=== PATIENT | female | born 1945 | race Caucasian/White ===

== ENCOUNTER 2018-10-06 20:05 | Inpatient (IN) ==
[2018-10-06] MEDS: MoRPHine SULFATE 2 MG/ML CARP IV PRN ×3 (20:24→23:10)
[2018-10-06 20:29] LABS: Basophils # (auto) 0.04 K/uL (0-0.2); Basophils % (auto) 0.5 %; Eosinophils # (auto) 0.13 K/uL (0-0.5); Eosinophils % (auto) 1.7 %; Hemoglobin 14.5 g/dL (12.0-16.0); Immature Granulocytes # (auto) 0.02 K/uL (0.00-0.02); Immature Granulocytes % (auto) 0.3 %; Lymphocytes # (auto) 2.04 K/uL (1.2-3.4); Lymphocytes % (auto) 26.4 %; Mean Corpuscular Hgb Conc 33.7 g/dL (32-36); Mean Corpuscular Volume 92.3 fL (80-100); Mean Platelet Volume 9.6 fL (7.4-10.4); Monocytes # (auto) 0.69 K/uL (0.11-0.59); Monocytes % (auto) 8.9 %; Neutrophils # (auto) 4.82 K/uL (1.4-6.5); Neutrophils % (auto) 62.2 %; Platelet Count 259 K/uL (130-400); RDW Standard Deviation 43.2 fL (36.4-46.3); Red Blood Count 4.66 M/uL (4.2-5.4); White Blood Count 7.74 K/uL (4.8-10.8)
[2018-10-06 20:41] LABS: Partial Thromboplastin Time 26.8 Seconds (21.0-31.0)
[2018-10-06 20:56] LABS: BUN Creatinine Ratio 17.3 (10-20); Calcium 8.6 mg/dl (8.5-10.1); Creatinine Clr Calc Pharmacy 54.3 ml/min; Est GFR (African American) 91.9; Est GFR (Non-African American) 79.3; Potassium 3.5 mmol/L (3.5-5.1)
--- NOTE | 2018-10-06 20:59 | XRay Report ---
XR hip LT 2-3V w pelvis CLINICAL HISTORY: 73 years-old Female presenting with trauma, pain. TECHNIQUE: Single frontal view of the pelvis and frontal and crosstable lateral views of the left hip were obtained. COMPARISON: 09/16/2015. FINDINGS: Intramedullary nail fixation through the right femoral neck and proximal metadiaphysis. Displaced les ser trochanteric fracture fragment. Nonbridging heterotopic ossification along the superior hip joint . Osteopenia. Sacral iliac joints, pubic symphysis, and hip joints congruent. Mildly displaced subcapit al left femoral neck fracture. The left femoral head remains congruent in the acetabulum. There is ap proximate 5 mm of medial displacement of the distal fracture fragment. Degenerative changes of the lo wer lumbar spine. IMPRESSION: Subcapital mildly displaced left femoral neck fracture. Electronically signed by: Santo Echavarria M.D. 10/06/2018 8:58 PM
[2018-10-06 21:43] LABS: Albumin Level 3.7 gm/dl (3.4-5.0); Bilirubin Direct 0.1 mg/dl (0-0.2); Bilirubin,Total 0.4 mg/dl (0.1-1); Total Protein 7.2 gm/dl (6.4-8.2)
--- NOTE | 2018-10-06 21:46 | XRay Report ---
XR chest 1V portable CLINICAL HISTORY: 73 years-old Female presenting with fall. TECHNIQUE: Portable upright AP view of the chest was obtained. COMPARISON: 09/19/2015. FINDINGS: Atherosclerosis of the aortic arch. Cardiac silhouette normal in size. Lungs are hyperinflated. Heter ogeneity of lung parenchyma. No focal opacity. No large effusion or pneumothorax. Osteopenia suggeste d. No displaced rib fracture is apparent. Multilevel degenerative changes of the lower thoracic spine . Upper abdomen normal. IMPRESSION: 1. Findings suggest emphysema. No focal infiltrate to suggest pneumonia. 2. No acute osseous injury. Electronically signed by: Santo Echavarria M.D. 10/06/2018 9:44 PM
[2018-10-06 21:59] LABS: Allen Test POS (Pos); HCO3 ABG 27 mmol/L (19-24); Oxygen Saturation ABG 92.9 % (90-95); PCO2 ABG 40 mmHg (35-46); PO2 ABG 63 mm/Hg (80-95); pH ABG 7.46 (7.35-7.45)
--- NOTE | 2018-10-06 22:33 | History & Physical Report ---
Date of Service October 06, 2018 Assessment & Plan (1) Fracture of left hip: (2) Fall: This is a 73-year-old female with a past medical history of multiple sclerosis, osteoporosis, hypothyroidism, mild COPD, insomnia and other medical problems listed below who presents after a mechanical fall at home this afternoon and was found to have a subcapital mildly displaced left femoral neck fracture. -S/P mechanical fall prior to arrival -Left hip/pelvis XR with subcapital mildly displaced left femoral neck fracture -Keep NPO with IV maintenance fluids overnight -Preop antibiotics, bedrest, العلي catheter per geriatric hip fracture protocol -Ortho surgery and anesthesia services consulted -No history of AK, CHF or DVT/PE. CXR with no acute abnormalities, EKG without acute ST changes -Echo performed in May 2018 with normal LV function with estimated EF of 60%, no wall motion abnormalities, grade 1 diastolic dysfunction, AV sclerosis. Revised cardiac risk index for pre-op risk score of 0.4% for major cardiac event. -Pain control (3) Multiple sclerosis: Follows with Dr. Phoenix in neurology clinic. Is not on any medications for MS -Slight motor/sensory dysfunction present in both hands (R>L) is at baseline (4) Hypothyroidism: Continue levothyroxine (5) COPD, mild: Stable. Does not require home O2. Lungs clear on exam -Continue Advair inhaler. Albuterol, Duonebs as needed (6) Insomnia: Takes two 1mg lorazepam each night at home DVT Ppx: SCDs Code status: FULL per discussion with patient PCP: Henry Dispo: Admitted to med/surg. Discharge planning ordered. Patient seen in collaboration with Dr. Colon. Please see addendum. History of Present Illness Chief Complaint: Fall Primary Care Provider: Cassy Figueroa MD This is a 73-year-old female with a past medical history of multiple sclerosis, osteoporosis, hypothyroidism, mild COPD, insomnia and other medical problems listed below who presents after a mechanical fall at home this afternoon. Patient's son was helping her out the door when the family dog knocked her legs out from under her, causing her to fall to the her left side. Denies any head trauma or loss of consciousness. Son states that he caught her before she hit the ground. Patient is endorsing left hip pain that is a 7/10. Denies any new numbness or tingling distal to fracture. Has history of MS and follows with Dr. Phoenix in clinic. Is not currently taking any medication and is able to ambulate without assistive devices. Does have chronic motor and sensory deficits in bilateral hands that are slight (R>L). Had history of a right femur fracture after a mechanical fall in 2014 with a surgical repair done by the [facility] in 2014. Denies any history of heart disease or DVT/PE. Underwent an echo in May 2018 that showed normal LV systolic function with estimated EF of 60%, no wall motion abnormality of left ventricle, grade 1 diastolic dysfunction and aortic valve sclerosis. Denies any fever, chills, lightheadedness, headache, chest pain, palpitations, shortness of breath, abdominal pain, nausea, vomiting, dysuria, diarrhea or constipation. Allergies Allergy/AdvReac Type Severity Reaction Status Date / Time No Known Allergies Allergy Unknown Verified 10/06/18 20:25 Home Medications Home Medications Medication Instructions Recorded Confirmed Type albuterol sulfate [Ventolin HFA] 2 puff INHALATION QID PRN 10/06/18 10/06/18 History fluticasone-salmeterol [Advair 1 puff INHALATION BID PRN 10/06/18 10/06/18 History Diskus] ipratropium-albuterol 3 ml INHALATION Q4 PRN 10/06/18 10/06/18 History levothyroxine 88 mcg PO DAILY 10/06/18 10/06/18 History lorazepam [Ativan] 2 mg PO HS PRN 10/06/18 10/06/18 History omega 2-xry-gtb-fish oil 1 cap PO DAILY 10/06/18 10/06/18 History polyethylene glycol 3350 [Miralax] 17 g PO BID PRN 10/06/18 10/06/18 History vitamins A,C,X-jrxm-vnruhe 1 tab PO DAILY 10/06/18 10/06/18 History [PreserVision AREDS] zoledronic bpmm-audqtxnu-dbozb 5 mg IV UD 10/06/18 10/06/18 History [Reclast] Past Med/Surg History Medical History Cervical spondylosis with myelopathy (Chronic) Attic perforation of tympanic membrane, left ear (Resolved) Hypothyroidism (Chronic) COPD, mild (Chronic) Insomnia (Chronic) Osteoporosis (Chronic) Status post closed fracture of right femur (Resolved) Multiple sclerosis (Chronic) Surgical History H/O cervical spine surgery (Resolved) History of hysterectomy (Resolved) Family History Father Heart disease Sister Breast cancer Social History Current Living Situation: Spouse Other Information That Helps Us Care for You: No Feels Safe at Home: Yes Safety Concerns: Feels Safe At This Time Smoking Status: Former smoker Hx Alcohol Use: No Hx Substance Use: No Beliefs That Will Affect Care: None Preferred Language: Syriac Communication Ability: Effective Product Safety Associate Required: No Review of Systems All systems reviewed & are unremarkable except as noted in HPI & below Physical Exam 2 Vital Signs (Past 24 Hours): Last Vital Signs Temp 36.5 C 10/06/18 19:55 Pulse 92 H 10/06/18 19:55 Resp 22 10/06/18 19:55 BP 149/88 H 10/06/18 19:55 Pulse Ox 93 10/06/18 19:55 Physical Exam: General Appearance: WD/WN, no apparent distress, resting comfortably Head: normocephalic, atraumatic Eyes: normal inspection, PERRL, EOMI ENT: hearing grossly normal, pharynx normal (moist mucous membranes) Neck: supple, no JVD, no adenopathy Respiratory/Chest: lungs clear to auscultation. No wheezes, rales or rhonci. No respiratory distress or accessory muscle use Cardiovascular: regular rate, rhythm, systolic murmur, normal peripheral pulses Abdomen/GI: normal bowel sounds, soft, non-tender to palpation Extremities/Musculoskelatal: + Left hip with tenderness to palpation, and pain with movement. Distal pulses intact. No calf tenderness, normal capillary refill, no pedal edema Neurologic/Psych: alert, normal mood/affect, oriented x 3 Skin: normal color, warm/dry Results & Data Laboratory Results Short CBC 10/06/18 Range/Units 20:20 WBC 7.74 (4.8-10.8) K/uL Hgb 14.5 (12.0-16.0) g/dL Hct 43.0 (37-47) % Plt Count 259 (130-400) K/uL BMP 10/06/18 20:20 Sodium 138 Potassium 3.5 Chloride 102 Carbon Dioxide 29 BUN 13 Creatinine 0.74 Glucose 112 H Calcium 8.6 Liver Function 10/06/18 Range/Units 20:20 Total Bilirubin 0.4 (0.1-1) mg/dl Direct Bilirubin 0.1 (0-0.2) mg/dl AST 20 (15-37) U/L ALT 25 (12-78) U/L Alkaline Phosphatase 75 (45-117) U/L Albumin 3.7 (3.4-5.0) gm/dl Diagnostic Findings CXR: IMPRESSION: 1. Findings suggest emphysema. No focal infiltrate to suggest pneumonia. 2. No acute osseous injury. Left Hip/Pelvis XR: IMPRESSION: Subcapital mildly displaced left femoral neck fracture. Supervising Physician Co-Signing Physician Notes IM ATTENDING : Patient seen and examined. History obtained from patient, family, and records. Preceding documentation by Ms. Jany Jimenez PA-C reviewed. FINAL ASSESSMENT AND PLAN as follows : Traumatic left femoral fracture secondary to mechanical fall Hypoxemic respiratory failure History moderate COPD as per outpatient PFTs Inhaler noncompliance Patient is asymptomatic at rest. Admits to SOB on exertion on walking a flight of stairs at home. MS, symptoms at baseline Hypothyroidism, euthyroid as of recent outpatient TSH Hyperglycemia rule out DM GMF Orthopedics consult RE left femoral fracture Recommend Pulmonary consult for preop evaluation to optimize lung function if surgery recommended given resting hypoxemia. Baseline ABG Supplemental O2 Nebs as needed Continue home Advair. Check hemoglobin A1c DVT prophylaxis. SCDs RE possible surgery Recommend pharmacologic anticoagulation with Lovenox 30 mg SQ daily once bleeding risk is deemed to be minimal and negligible pending Orthopedics evaluation. Full code Patient's requesting for updates from providers. Mr. Maryjane Puente Contact #[phone]. _ (1) Fracture of left hip Encounter type: initial encounter Fracture healing: Fracture type: closed Open fracture type: Qualified Code(s): S72.002A - Fracture of unspecified part of neck of left femur, initial encounter for closed fracture (2) Fall Encounter type: initial encounter Qualified Code(s): W19.XXXA - Unspecified fall, initial encounter
[2018-10-06] MEDS ORDERED: XOPENEX/ATROVENT 1.25mg/0.5MG NEB COMBO NEB PRN (22:40)
[2018-10-06 22:44] LABS: Appearance Urine Clear (Clear); Bacteria Urine Automated Negative (Negative); Bilirubin Urine Negative (Negative); Color Urine Yellow; Glucose Urine UA Negative (Negative); Ketones Urine Trace (Negative); Leukocyte Esterase Urine Trace (Negative); Nitrite Urine Negative (Negative); Protein Urine Negative (Negative); Specific Gravity Urine 1.015 (1.000-1.030); Urobilinogen Urine Negative (Negative)
[2018-10-06] MEDS ORDERED: IPRATROPIUM BROMIDE NEB SOLN 0.02% 2.5 ML VIAL INH PRN (22:45)
[2018-10-06] MEDS ORDERED: LEVALBUTEROL 1.25MG/0.5ML NEB INH PRN (22:45)
[2018-10-06] MEDS ORDERED: ONDANSETRON INJ 2 MG/ML 2 ML VIAL ONE (23:27)
[2018-10-06] MEDS ORDERED: ONDANSETRON INJ 2 MG/ML 2 ML VIAL IV STA (23:29)
[2018-10-06] MEDS ORDERED: FLUTICASONE/SALMETEROL 250/50 (ADVAIR) 14 PUFF/1 INHALER INH ONE (23:30)
[2018-10-06] MEDS ORDERED: methylPREDNISolone 20 MG in SYRINGE 0 ML IV ONE (23:30)
--- NOTE | 2018-10-06 23:45 | Emergency Department Note ---
Entered by Emanuel Frausto acting as a scribe for History of Present Illness General Chief complaint: Fall Time Seen by Provider: 10/06/18 20:06 Source: patient History of Present Illness Onset (ago): day(s) (today) Location: hip (left) Radiation: other (groin) Pain Consistency: + constant Current Pain Intensity: 10 Associated symptoms: + other (Positive for mild back pain. Negative for left leg pain, elbow pain, shoulder pain, head pain, and LOC.) The patient is a 73 year old female who presents to the emergency department with complaints of constant left hip pain following a fall occurring today. The patient states that she tripped over her sons dog today and fell on the concrete. She notes that felt fine before she fell and was not dizzy prior to falling. She reports that she landed on her left hip when she fell. The patient states that her hip pain goes into her groin. She also complains of some mild lower back pain but states that is chronic. She rates her pain as a 10/10. She denies any left leg pain, elbow pain, shoulder pain, head pain, and LOC. She notes that she has a history of a right hip surgery but she reports that she has not hurt her left hip before. Home Medications Home Medications Medication Instructions Recorded Confirmed Type albuterol sulfate [Ventolin HFA] 2 puff INHALATION QID PRN 10/06/18 10/06/18 History fluticasone-salmeterol [Advair 1 puff INHALATION BID PRN 10/06/18 10/06/18 History Diskus] ipratropium-albuterol 3 ml INHALATION Q4 PRN 10/06/18 10/06/18 History levothyroxine 88 mcg PO DAILY 10/06/18 10/06/18 History lorazepam [Ativan] 2 mg PO HS PRN 10/06/18 10/06/18 History omega 0-fnf-urh-fish oil 1 cap PO DAILY 10/06/18 10/06/18 History polyethylene glycol 3350 [Miralax] 17 g PO BID PRN 10/06/18 10/06/18 History vitamins A,C,R-vvuq-achcos 1 tab PO DAILY 10/06/18 10/06/18 History [PreserVision AREDS] zoledronic rpin-svjtivmh-ifrxi 5 mg IV UD 10/06/18 10/06/18 History [Reclast] Allergies Allergy/AdvReac Type Severity Reaction Status Date / Time No Known Allergies Allergy Unknown Verified 10/06/18 20:25 Past Med/Surg History Medical History Cervical spondylosis with myelopathy (Chronic) Attic perforation of tympanic membrane, left ear (Resolved) Hypothyroidism (Chronic) COPD, mild (Chronic) Insomnia (Chronic) Osteoporosis (Chronic) Status post closed fracture of right femur (Resolved) Multiple sclerosis (Chronic) Surgical History H/O cervical spine surgery (Resolved) History of hysterectomy (Resolved) Family History Father Heart disease Sister Breast cancer Social History Current Living Situation: Long Term Feels Safe at Home: Yes Smoking Status: Former smoker Hx Alcohol Use: No Communication Ability: Effective Visual Impairment: No Limitations Review of Systems See HPI for pertinent positives & negatives. and A total of 10 systems reviewed and were otherwise negative Physical Exam Vital Signs Vital Signs - 24 hr 10/06/18 19:55 10/06/18 22:32 10/06/18 23:20 Temperature 36.5 C Temperature Source Oral Sepsis Recent Fever Within 48 Hours No Sepsis Action Taken by Nursing No Action Required Pulse Rate 92 H 86 Pulse Rate [Apical] 85 Respiratory Rate 22 18 18 Respiratory Effort / Characteristics Non-Labored Non-Labored Respiratory Depth Normal Normal Blood Pressure 149/88 H 145/86 H Blood Pressure [Right Arm] 131/73 Blood Pressure Mean 108 Blood Pressure Mean [Right Arm] 92 Pulse Oximetry 93 95 94 Oxygen Delivery Method Nasal Cannula Nasal Cannula Nasal Cannula Oxygen Flow Rate 2 2 2 GENERAL: alert, well appearing, well nourished, no distress, non-toxic HEAD: normal cephalic, atraumatic EYE EXAM: normal conjunctiva, PERRL and EOM's grossly intact OROPHARYNX: no exudate, no erythema, lips, buccal mucosa, and tongue normal and mucous membranes are moist EARS: TMs clear b/l NECK: supple, no nuchal rigidity, no adenopathy, non-tender CHEST: stable to compression anteriorly and posteriorly LUNGS: clear to auscultation. Normal chest wall mechanics HEART: no murmurs, S1 normal and S2 normal ABDOMEN: abdomen soft, non-tender, normo-active bowel sounds, no masses, no rebound or guarding. PELVIS: stable to compression anteriorly and posteriorly. Pain at left anterior aspect of the hip, decreased ROM secondary to pain, no obvious deformity. BACK: Back is symmetrical on inspection and there is no deformity, no midline tenderness, no CVA tenderness. UPPER EXTREMITIES: full active and passive range of motion of all joints without tenderness to palpation LOWER EXTREMITIES: full active and passive range of motion of all joints without tenderness to palpation, no obvious trauma to left lower extremity, normal pulses to the bilateral lower extremities. NEURO EXAM: Normal sensorium, cranial nerves II-XII grossly intact, normal speech, no gross weakness of arms, no gross weakness of right leg, limited eval of left. GCS: 15. Course 2007: Past medical records reviewed. The patient was evaluated in room B2, and a complete history and physical examination were performed. 2114: I reevaluated and updated the patient. 2121: Upon reevaluation, the patient is stable. I discussed the results and treatment plan with the patient. She verbalizes understanding and agreement. I discussed the patient's case with Kaycee Rene. The patient will be evaluated for further management and care. Consultations Consultation #1: I reviewed the patient's case with Kaycee Rene. He will evaluate the patient for further management. Time: 21:22 Administered Medications Morphine Sulfate (Morphine Sulfate) 2 mg IV Q1H PRN PRN Reason: Moderate Pain (Rating 3,4,5,6) Stop: 10/20/18 20:14 Last Admin: 10/06/18 23:10 Dose: 2 mg Admin: 10/06/18 21:36 Dose: 2 mg Admin: 10/06/18 20:24 Dose: 2 mg Discontinued Medications Ondansetron HCl (Zofran) 4 mg IV ONCE STA Stop: 10/06/18 23:30 Last Admin: 10/06/18 23:29 Dose: 4 mg Medical Decision Making Differential Diagnosis Differential diagnosis: Etiologies such as fracture, cervical/vertebral injury, dislocation, intra- abdominal process, pneumothorax, intrathoracic trauma, intracranial injury, soft tissue injury, neurologic process, as well as other traumatic pathologies were entertained. Medical Records Attestation: I reviewed the patient's medical records. Home Medications Current Medication List: was personally reviewed by nv Laboratory Data Attestation: I reviewed the patient's lab results. Result diagrams: 10/06/18 20:20 10/06/18 20:20 Lab Results 10/06/18 10/06/18 10/06/18 Range/Units 20:20 20:20 20:20 WBC 7.74 (4.8-10.8) K/uL RBC 4.66 (4.2-5.4) M/uL Hgb 14.5 (12.0-16.0) g/dL Hct 43.0 (37-47) % MCV 92.3 (80-100) fL MCH 31.1 (25-34) pg MCHC 33.7 (32-36) g/dL RDW Std Deviation 43.2 (36.4-46.3) fL RDW Coeff of Jose A 13.0 (11.5-14.5) % Plt Count 259 (130-400) K/uL MPV 9.6 (7.4-10.4) fL Immature Gran % (Auto) 0.3 % Neut % (Auto) 62.2 % Lymph % (Auto) 26.4 % Cole % (Auto) 8.9 % Eos % (Auto) 1.7 % Baso % (Auto) 0.5 % Immature Gran # (Auto) 0.02 (0.00-0.02) K/uL Neut # (Auto) 4.82 (1.4-6.5) K/uL Lymph # (Auto) 2.04 (1.2-3.4) K/uL Cole # (Auto) 0.69 H (0.11-0.59) K/uL Eos # (Auto) 0.13 (0-0.5) K/uL Baso # (Auto) 0.04 (0-0.2) K/uL PT 10.0 (9.0-12.0) Seconds INR 1.0 (0.9-1.1) APTT 26.8 (21.0-31.0) Seconds PTT Ratio 1.0 ABG pH (7.35-7.45) ABG pCO2 (35-46) mmHg ABG pO2 (80-95) mm/Hg ABG HCO3 (19-24) mmol/L ABG O2 Saturation (90-95) % ABG Base Excess (-9-1.8) mEq/L Larry Test (Pos) Barometric Pressure mm/Hg Oxygen Given Sodium 138 (136-145) mmol/L Potassium 3.5 (3.5-5.1) mmol/L Chloride 102 (98-107) mmol/L Carbon Dioxide 29 (21-32) mmol/L Anion Gap 7.0 (3-11) BUN 13 (7-18) mg/dl Creatinine 0.74 (0.6-1.2) mg/dl Est Cr Clr Drug Dosing 54.3 ml/min Est GFR ( Amer) 91.9 Est GFR (Non-Af Amer) 79.3 BUN/Creatinine Ratio 17.3 (10-20) Glucose 112 H (70-99) mg/dl Calcium 8.6 (8.5-10.1) mg/dl Magnesium 2.0 (1.8-2.4) mg/dl Total Bilirubin 0.4 (0.1-1) mg/dl Direct Bilirubin 0.1 (0-0.2) mg/dl AST 20 (15-37) U/L ALT 25 (12-78) U/L Alkaline Phosphatase 75 (45-117) U/L Total Protein 7.2 (6.4-8.2) gm/dl Albumin 3.7 (3.4-5.0) gm/dl Urine Color Urine Appearance (Clear) Urine pH (4.5-7.5) Ur Specific Cooter (1.000-1.030) Urine Protein (Negative) Urine Glucose (UA) (Negative) Urine Ketones (Negative) Urine Blood (Negative) Urine Nitrite (Negative) Urine Bilirubin (Negative) Urine Urobilinogen (Negative) Ur Leukocyte Esterase (Negative) Urine WBC (Auto) (0-5) /hpf Urine RBC (Auto) (0-4) /hpf U Hyaline Cast (Auto) (0-5) /lpf U Epithel Cells (Auto) (0-5) /lpf Urine Bacteria (Auto) (Negative) Blood Type Antibody Screen 10/06/18 10/06/18 10/06/18 Range/Units 21:28 21:44 22:15 WBC (4.8-10.8) K/uL RBC (4.2-5.4) M/uL Hgb (12.0-16.0) g/dL Hct (37-47) % MCV (80-100) fL MCH (25-34) pg MCHC (32-36) g/dL RDW Std Deviation (36.4-46.3) fL RDW Coeff of Jose A (11.5-14.5) % Plt Count (130-400) K/uL MPV (7.4-10.4) fL Immature Gran % (Auto) % Neut % (Auto) % Lymph % (Auto) % Cole % (Auto) % Eos % (Auto) % Baso % (Auto) % Immature Gran # (Auto) (0.00-0.02) K/uL Neut # (Auto) (1.4-6.5) K/uL Lymph # (Auto) (1.2-3.4) K/uL Cole # (Auto) (0.11-0.59) K/uL Eos # (Auto) (0-0.5) K/uL Baso # (Auto) (0-0.2) K/uL PT (9.0-12.0) Seconds INR (0.9-1.1) APTT (21.0-31.0) Seconds PTT Ratio ABG pH 7.46 H (7.35-7.45) ABG pCO2 40 (35-46) mmHg ABG pO2 63 L (80-95) mm/Hg ABG HCO3 27 H (19-24) mmol/L ABG O2 Saturation 92.9 (90-95) % ABG Base Excess 3.1 H (-9-1.8) mEq/L Larry Test POS (Pos) Barometric Pressure 732.8 mm/Hg Oxygen Given 2L O2 Sodium (136-145) mmol/L Potassium (3.5-5.1) mmol/L Chloride (98-107) mmol/L Carbon Dioxide (21-32) mmol/L Anion Gap (3-11) BUN (7-18) mg/dl Creatinine (0.6-1.2) mg/dl Est Cr Clr Drug Dosing ml/min Est GFR ( Amer) Est GFR (Non-Af Amer) BUN/Creatinine Ratio (10-20) Glucose (70-99) mg/dl Calcium (8.5-10.1) mg/dl Magnesium (1.8-2.4) mg/dl Total Bilirubin (0.1-1) mg/dl Direct Bilirubin (0-0.2) mg/dl AST (15-37) U/L ALT (12-78) U/L Alkaline Phosphatase (45-117) U/L Total Protein (6.4-8.2) gm/dl Albumin (3.4-5.0) gm/dl Urine Color Yellow Urine Appearance Clear (Clear) Urine pH 5.0 (4.5-7.5) Ur Specific Cooter 1.015 (1.000-1.030) Urine Protein Negative (Negative) Urine Glucose (UA) Negative (Negative) Urine Ketones Trace H (Negative) Urine Blood Negative (Negative) Urine Nitrite Negative (Negative) Urine Bilirubin Negative (Negative) Urine Urobilinogen Negative (Negative) Ur Leukocyte Esterase Trace H (Negative) Urine WBC (Auto) 1-5 (0-5) /hpf Urine RBC (Auto) 0-4 (0-4) /hpf U Hyaline Cast (Auto) 1-5 (0-5) /lpf U Epithel Cells (Auto) 10-20 H (0-5) /lpf Urine Bacteria (Auto) Negative (Negative) Blood Type O Positive Antibody Screen NEGATIVE Imaging Data Radiologist's Impression: Radiology results as stated below per my review and the radiologist's interpretation: XR chest 1V portable FINDINGS: Atherosclerosis of the aortic arch. Cardiac silhouette normal in size. Lungs are hyperinflated. Heterogeneity of lung parenchyma. No focal opacity. No large effusion or pneumothorax. Osteopenia suggested. No displaced rib fracture is apparent. Multilevel degenerative changes of the lower thoracic spine. Upper abdomen normal. IMPRESSION: 1. Findings suggest emphysema. No focal infiltrate to suggest pneumonia. 2. No acute osseous injury. Electronically signed by: Santo Echavarria M.D. 10/06/2018 9:44 PM XR hip LT 2-3V w pelvis FINDINGS: Intramedullary nail fixation through the right femoral neck and proximal metadiaphysis. Displaced lesser trochanteric fracture fragment. Nonbridging heterotopic ossification along the superior hip joint. Osteopenia. Sacral iliac joints, pubic symphysis, and hip joints congruent. Mildly displaced subcapital left femoral neck fracture. The left femoral head remains congruent in the acetabulum. There is approximate 5 mm of medial displacement of the distal fracture fragment. Degenerative changes of the lower lumbar spine. IMPRESSION: Subcapital mildly displaced left femoral neck fracture. Electronically signed by: Santo Echavarria M.D. 10/06/2018 8:58 PM ECG Data Attestation: I personally reviewed and interpreted this ECG as follows: Indication: other (fall) Rate (beats per minute): 95 Rhythm: sinus rhythm Findings: no PAC, no PVC, no ST depression and no ST elevation Additional Comments: Normal axis, normal intervals. Blood Pressure Blood Pressure Findings: Elevated blood pressure Blood Pressure Disposition: further management by hospitalist MDM Narrative Patient here with mechanical fall and isolated pain at left hip. Patient found to have a left subcapital hip fracture. Patient with no other physical exam findings to suggest additional trauma. Patient denies head injury and LOC. Patient not on anticoagulation. I have a low suspicion for any additional occult traumatic injury. Patient's labs and chest x-ray reassuring. Patient hemodynamically stable throughout. Patient admitted to the hospitalist for medical clearance and orthopedic evaluation for likely operative intervention. Patient and family aware of all results in agreement with plan. Impression & Plan Fracture of left hip, Fall Discharge Plan Visit Data Chief Complaint: Fall Other Complaint: Hip Pain ED Provider: Joana Escobar Discharge Problem: Fracture of left hip, Fall Patient Disposition: Being Evaluated by Hospitalist Discharge Instructions Interventions: ED Discharge Assessment Last Done: 10/06/18 23:20 The scribe's documentation has been prepared under my direction and personally reviewed by me in its entirety. I confirm that the note above accurately reflects all work, treatment, procedures, and medical decision making performed by me.
[2018-10-07] MEDS ORDERED: LORazepam 0.25 MG/0.5 ML VIAL IV PRN (00:17)
[2018-10-07] MEDS ORDERED: TRAMADOL HCL 50 MG TABLET PO PRN (00:17)
[2018-10-07] MEDS ORDERED: SOD PHOSPHATE/SOD BIPHOSPHATE ENEMA 132 ML BTL PR PRN (00:17)
[2018-10-07] MEDS ORDERED: NALOXONE HCL 0.4 MG/1 ML VIAL/CARP IV PRN ×3 (00:17→16:34)
[2018-10-07] MEDS ORDERED: MAGNESIUM HYDROXIDE SUSP 30 ML UDC PO PRN (00:17)
[2018-10-07] MEDS ORDERED: XOPENEX/ATROVENT 1.25mg/0.5MG NEB COMBO NEB STA (00:17)
[2018-10-07] MEDS ORDERED: BISACODYL 10 MG SUPP PR PRN (00:17)
[2018-10-07] MEDS ORDERED: PROCHLORPERAZINE 5 MG in SYRINGE 4 ML IV PRN (00:17)
[2018-10-07] MEDS ORDERED: LEVALBUTEROL 1.25MG/0.5ML NEB INH STA (00:32)
[2018-10-07] MEDS ORDERED: IPRATROPIUM BROMIDE NEB SOLN 0.02% 2.5 ML VIAL INH STA (00:32)
[2018-10-07] MEDS: NSS + 20MEQ KCL 20 MEQ/1,000 ML BAG IV SCH ×2 (01:11→20:48)
[2018-10-07] MEDS: LORazepam 1 MG TAB PO PRN ×2 (01:16→22:01)
[2018-10-07] MEDS: MoRPHine SULFATE 2 MG/ML CARP IV PRN ×2 (01:17→04:58)
[2018-10-07] MEDS: LEVOTHYROXINE SODIUM 88 MCG TABLET PO SCH (04:59)
[2018-10-07] MEDS ORDERED: PNEUMOCOCCAL POLYSACCHARIDES 25 MCG/0.5 ML VIAL/SYR IM ONE (08:00)
[2018-10-07] MEDS ORDERED: PNEUMOCOCCAL ADMINISTRATION CHARGE ONE (08:00)
[2018-10-07] MEDS: FLUTICASONE/SALMETEROL 250/50 (ADVAIR) 14 PUFF/1 INHALER INH SCH ×2 (08:30→20:47)
[2018-10-07] MEDS ORDERED: POLYETHYLENE (MIRALAX) 17 GM PACK PO PRN (09:00)
--- NOTE | 2018-10-07 12:36 | Anesthesiology Consultation ---
Date of Service October 07, 2018 Assessment & Plan Plan: General anesthesia Chart Review Chart Review: Acceptable Risk for Surgery and Patient NOT seen in Pre Admission Testing Consults Requested none ASA ASA4 Proposed Anesthesia Anesthesia Type: General Anesthesia Line Insertion: Arterial line Risk / Benefits Reviewed With: PT / POA / Parent / Guardian, Accepts Plan and Informed Consent Obtained NPO Date Last Intake of Fluids: 10/06/18 Time Last Intake of Fluids: 14:00 Last Intake of Fluids Comment: Npo except meds, sips, chips Date Last Intake of Solids: 10/06/18 Time Last Intake of Solids: 14:00 History Surgery Operation Date: 10/07/18 11:00 Proposed Procedures p Total Hip Arthroplasty Uncemt Anterior(Left) - Rosalino Hutchison, Height/Weight Height: 5 ft 3 in Weight: 57.153 kg Allergies Allergy/AdvReac Type Severity Reaction Status Date / Time No Known Allergies Allergy Unknown Verified 10/06/18 20:25 Medications Home Medications Medication Instructions Recorded Confirmed Last Taken albuterol sulfate [Ventolin HFA] 2 puff INHALATION QID PRN 10/06/18 10/06/18 Unknown fluticasone-salmeterol [Advair 1 puff INHALATION BID PRN 10/06/18 10/06/18 Unknown Diskus] ipratropium-albuterol 3 ml INHALATION Q4 PRN 10/06/18 10/06/18 Unknown levothyroxine 88 mcg PO DAILY 10/06/18 10/06/18 10/05/18 lorazepam [Ativan] 2 mg PO HS PRN 10/06/18 10/06/18 Unknown omega 2-wht-see-fish oil 1 cap PO DAILY 10/06/18 10/06/18 Unknown polyethylene glycol 3350 [Miralax] 17 g PO BID PRN 10/06/18 10/06/18 Unknown vitamins A,C,L-zeco-wmygjq 1 tab PO DAILY 10/06/18 10/06/18 10/05/18 [PreserVision AREDS] zoledronic rckk-gkwvorsr-dbuld 5 mg IV UD 10/06/18 10/06/18 Unknown [Reclast] Active Medications Generic Name Dose Route Start Last Admin Trade Name Freq PRN Reason Stop Dose Admin Potassium Chloride/Sodium Chloride 20 meq in 1,000 mls @ 50 mls/hr 10/07/18 01 :00 10/07/18 05:16 Normal Saline W/20 Meq Kcl IV 11/06/18 00:59 50 mls/hr .Q20H LALO Infusion Ipratropium [place] 0.5 mg 10/06/18 22:45 10/07/18 06:59 Atrovent 0.02% 0.5mg/2.5ml INH 11/05/18 22:44 0.5 mg Q4H PRN Administration WHEEZING/SOB Levalbuterol HCl 1.25 mg 10/06/18 22:45 10/07/18 06:59 Xopenex 1.25mg/0.5ml Neb INH 11/05/18 22:44 1.25 mg Q4H PRN Administration WHEEZING/SOB Levothyroxine Sodium 88 mcg 10/07/18 06:30 10/07/18 04:59 Synthroid PO 11/06/18 06:29 88 mcg DAILYBB LALO Administration Lorazepam 0.5 mg 10/07/18 00:17 10/07/18 01:16 Ativan PO 11/06/18 00:16 0.5 mg HS PRN Administration Insomnia Morphine Sulfate 2 mg 10/06/18 20:15 10/07/18 04:58 Morphine Sulfate IV 10/20/18 20:14 2 mg Q1H PRN Administration Moderate Pain (Rating 3,4,5,6) Fluticasone/Salmeterol 1 puffs 10/07/18 09:00 10/07/18 08:30 Advair Diskus 250/50 INH 11/06/18 08:59 1 puffs BID LALO Administration Beta Diana Beta Diana Taken Within 24 Hours: No Past Medical History Medical History Cervical spondylosis with myelopathy (Chronic) Attic perforation of tympanic membrane, left ear (Resolved) Hypothyroidism (Chronic) COPD, mild (Chronic) Insomnia (Chronic) Osteoporosis (Chronic) Status post closed fracture of right femur (Resolved) Multiple sclerosis (Chronic) Past Family History Family History Father Heart disease Sister Breast cancer Past Surgical History Surgical History H/O cervical spine surgery (Resolved) History of hysterectomy (Resolved) Past Anesthesia History No Hx of Anesthesia Complications and No Family Hx of Anesthesia Complications History of PONV No Motion Sickness Screening History of Motion Sickness: No Social History Smoking Status: Former smoker (quit 09/2015, former <1 ppd x 55 years) Hx Alcohol Use: No Hx Substance Use: No Exercise / Class Metabolic Activity III < 4 Walking/Shop/Light housework Physical Exam Vital Signs Last Vital Signs Temp 37.5 C 10/07/18 09:30 Pulse 82 10/07/18 07:20 Resp 16 10/07/18 07:20 BP 128/70 10/07/18 07:20 Pulse Ox 96 10/07/18 07:20 ENMT Mouth: + edentulous Thyromental Distance: > or= 3.5 Finger Breadths Mallampati Class: II Neck normal visual inspection and trachea midline; neck extension not limited Respiratory normal respiratory effort Auscultation: lungs clear to auscultation bilaterally Cardiovascular Rate/Rhythm: regular rate and regular rhythm Heart Sounds: no murmur Vessels: no carotid bruit Neurologic moves all extremities Motor/Sensory: + sensory deficit (RUE > LUE) Psychiatric Orientation: alert and oriented x 3 Testing Electrocardiogram Date: 10/06/18 Findings: + NSR @ (at 85;NS ST T wave changes) Chest X-Ray Date: 10/06/18 Findings: + NAD and + atherosclerosis of thoracic aorta C/W emphysema/COPD Laboratory Results 10/06/18 20:20 10/06/18 20:20 Blood Type O Positive 10/06/18 21:28 Antibody Screen NEGATIVE 10/06/18 21:28 PT 10.0 Seconds (9.0-12.0) 10/06/18 20:20 INR 1.0 (0.9-1.1) 10/06/18 20:20 APTT 26.8 Seconds (21.0-31.0) 10/06/18 20:20 Urine Color Yellow 10/06/18 22:15 Urine Appearance Clear (Clear) 10/06/18 22:15 Urine pH 5.0 (4.5-7.5) 10/06/18 22:15 Ur Specific [place] 1.015 (1.000-1.030) 10/06/18 22:15 Urine Protein Negative (Negative) 10/06/18 22:15 Urine Glucose (UA) Negative (Negative) 10/06/18 22:15 Urine Ketones Trace (Negative) H 10/06/18 22:15 Urine Nitrite Negative (Negative) 10/06/18 22:15 Ur Leukocyte Esterase Trace (Negative) H 10/06/18 22:15 Urine WBC (Auto) 1-5 /hpf (0-5) 10/06/18 22:15 Urine RBC (Auto) 0-4 /hpf (0-4) 10/06/18 22:15 U Hyaline Cast (Auto) 1-5 /lpf (0-5) 10/06/18 22:15 U Epithel Cells (Auto) 10-20 /lpf (0-5) H 10/06/18 22:15 Urine Bacteria (Auto) Negative (Negative) 10/06/18 22:15
[2018-10-07] MEDS ORDERED: LABETALOL HCL IV 5 MG/ML 20ML IV PRN (12:41)
[2018-10-07] MEDS ORDERED: FLUMAZENIL 0.1 MG/1 ML 10 ML VIAL IV PRN (12:41)
[2018-10-07] MEDS ORDERED: fentaNYL citrate 100 MCG/2 ML VIAL IV PRN (12:41)
[2018-10-07] MEDS ORDERED: PROMETHAZINE HCL 12.5 MG in SODIUM CHLORIDE 0.9% 50 ML IV PRN (12:41)
[2018-10-07] MEDS ORDERED: ATROPINE SULFATE 0.1 MG/ML 5ML SYR IV PRN (12:41)
[2018-10-07] MEDS ORDERED: ePHEDrine sulfate 50 MG/ML AMP IV PRN (12:41)
[2018-10-07] MEDS ORDERED: ONDANSETRON INJ 2 MG/ML 2 ML VIAL IV PRN (12:41)
[2018-10-07] MEDS ORDERED: BACITRACIN INJ 50,000 UNIT VIAL ONE (12:43)
[2018-10-07] MEDS ORDERED: ORTHO JOINT ANESTHETIC IM SCH ×2 (13:00)
--- NOTE | 2018-10-07 13:06 | Orthopedic Consultation ---
Date of Consultation October 07, 2018 Assessment & Plan (1) Fracture of left hip: We will proceed with a left anterior hip hemiarthroplasty. I discussed this with her and her at bedside. They have consented and would like to proceed. Postoperatively she will be probably placed on Lovenox for DVT prophylaxis and made weightbearing as tolerated. Orthopedics will continue to follow. Present on Admission?: Yes History of Present Illness Attending Physician: Feliciano Green MD History of Present Illness Halina is a pleasant 73-year-old female who was in her usual state of health until last evening. She was walking out the door of her house when a dog hit her legs causing her to fall onto her left hip. She had immediate left hip pain. She went to the emergency room and radiographs demonstrated a moderately displaced left femoral neck fracture. She was admitted to the medical service and orthopedics was consulted for evaluation and treatment. Allergies Allergy/AdvReac Type Severity Reaction Status Date / Time No Known Allergies Allergy Unknown Verified 10/06/18 20:25 Home Medications Home Medications Medication Instructions Recorded Confirmed Type albuterol sulfate [Ventolin HFA] 2 puff INHALATION QID PRN 10/06/18 10/06/18 History fluticasone-salmeterol [Advair 1 puff INHALATION BID PRN 10/06/18 10/06/18 History Diskus] ipratropium-albuterol 3 ml INHALATION Q4 PRN 10/06/18 10/06/18 History levothyroxine 88 mcg PO DAILY 10/06/18 10/06/18 History lorazepam [Ativan] 2 mg PO HS PRN 10/06/18 10/06/18 History omega 2-jpy-lit-fish oil 1 cap PO DAILY 10/06/18 10/06/18 History polyethylene glycol 3350 [Miralax] 17 g PO BID PRN 10/06/18 10/06/18 History vitamins A,C,H-qqsf-cberqm 1 tab PO DAILY 10/06/18 10/06/18 History [PreserVision AREDS] zoledronic nula-fselpblu-ncxht 5 mg IV UD 10/06/18 10/06/18 History [Reclast] Patient History Medical History Cervical spondylosis with myelopathy (Chronic) [place] perforation of tympanic membrane, left ear (Resolved) Hypothyroidism (Chronic) COPD, mild (Chronic) Insomnia (Chronic) Osteoporosis (Chronic) Status post closed fracture of right femur (Resolved) Multiple sclerosis (Chronic) Surgical History H/O cervical spine surgery (Resolved) History of hysterectomy (Resolved) Family History Father Heart disease Sister Breast cancer Social History Current Living Situation: Spouse Other Information That Helps Us Care for You: No Feels Safe at Home: Yes Safety Concerns: Feels Safe At This Time Smoking Status: Former smoker (quit 09/2015, former <1 ppd x 55 years) Hx Alcohol Use: No Hx Substance Use: No Beliefs That Will Affect Care: None Communication Ability: Effective Physical Exam 2 Vital Signs (Past 24 Hours): Last Vital Signs Temp 37.5 C 10/07/18 09:30 Pulse 82 10/07/18 07:20 Resp 16 10/07/18 07:20 BP 128/70 10/07/18 07:20 Pulse Ox 96 10/07/18 07:20 Musculoskeletal: On physical examination of her left hip, the leg lengths are essentially equal. She does have a little bit of external rotation of the left leg compared to the right. She is significant groin pain with logrolling of the left leg. She is active dorsiflexion and plantarflexion of the left ankle. Results & Data Laboratory Results H & H 10/06/18 Range/Units 20:20 Hgb 14.5 (12.0-16.0) g/dL Hct 43.0 (37-47) % Coagulation 10/06/18 Range/Units 20:20 INR 1.0 (0.9-1.1) Diagnostic Findings X-rays of the left hip and pelvis demonstrate a minimally displaced left femoral neck fracture. I do not see any significant arthritis of the hip. _ (1) Fracture of left hip Encounter type: initial encounter Fracture healing: Fracture type: closed Open fracture type: Qualified Code(s): S72.002A - Fracture of unspecified part of neck of left femur, initial encounter for closed fracture
[2018-10-07] MEDS ORDERED: fentaNYL citrate 100 MCG/2 ML VIAL ONE ×2 (13:07→13:51)
[2018-10-07] MEDS ORDERED: ROPIVACAINE 0.5% HCL/PF 150 MG, BUPIVACAINE 0.5% MPF 30 ML, EPINEPHrine 0.15 MG, Ketoro... INFIL ONE (13:15)
[2018-10-07] MEDS ORDERED: LIDOCAINE HCL 2% 2 ML VIAL/AMP(20MG/ML) INFIL ONE (13:51)
[2018-10-07] MEDS ORDERED: PROPOFOL IV EMULSION 10 MG/ML 20 ML VIAL IV ONE (13:51)
--- NOTE | 2018-10-07 13:56 | Consultation Report ---
DATE OF CONSULTATION: 10/07/2018 PATIENT OF: Dr. Green. TIME: 0900. REASON FOR CONSULTATION: COPD. HISTORY OF PRESENT ILLNESS: The patient is scheduled for a left hip replacement due to traumatic subcapital mildly displaced left femoral neck fracture. The patient has a history of COPD, is under the care of Dr. Cassy Figueroa as an outpatient. She stopped smoking in 2014 after at least 45-50 pack year history. She admits to mild dyspnea at home when she exerts herself climbing stairs or carrying laundry, but it is not severe. Unfortunately, she has had right hip replacement also from trauma in the past. Echocardiogram done in 05/2018 shows a normal LVEF with no wall motion abnormalities and grade 1 diastolic dysfunction. She does have a history of multiple sclerosis and is followed by Dr. Phoenix in the [facility] with some slight motor and sensory dysfunction of both hands at baseline. She does not require home oxygen, at least is not up to date, but has been supplemented here in the hospital. She has been on Advair Diskus inhaler and uses aerosolized bronchodilator in the form of DuoNeb or albuterol at home as needed. She denies sputum production, congestion, hemoptysis or pleuritic pain. She has a history of osteoporosis and hypothyroidism as well. Yesterday apparently she got tangled up with the dog and lost her balance and fractured her left hip. She is not on any medication for her multiple sclerosis currently. She does have a right femur fracture with a mechanical fall in 2014 repaired by physicians in the ____ [facility] without complication. There is no history of heart disease or deep venous thrombosis or pulmonary emboli. For details of past medical history, medications, family and social history, I refer you to current and past record. PHYSICAL EXAMINATION: GENERAL: Reveals an elderly white female, in no obvious distress. CURRENT VITAL SIGNS: Blood pressure 128/70, pulse 82 and regular, respiratory rate 16, temperature 36.4, O2 sat 96% on 2 liters nasal cannula. SKIN: Without lesion. HEENT: Atraumatic, normocephalic. PERRLA. EOMI. Conjunctivae pale. Sclerae nonicteric. Fundi poorly visualized. NECK: Neck veins are not distended at 45 degrees. No obvious adenopathy in the supra or infraclavicular areas. LUNGS: Distant P and A with hyperresonance. CARDIAC: Regular rate and rhythm. I do not appreciate any gallop. ABDOMEN: Soft, scaphoid. No evidence of hepatosplenomegaly. EXTREMITIES: No significant pedal edema, clubbing or cyanosis. NEUROLOGIC: Intact. No lateralizing signs. LABORATORY DATA: EKG shows normal sinus rhythm with nonspecific ST segment changes. White count 7700, H and H 14.5 and 43. PT, PTT, INR within normal limits. ABGs on 2 liters: pH 7.46, pCO2 40, pO2 63. BUN 13, glucose is 112. Rest of the chemistry is unremarkable. Hip x-ray shows subcapital mildly displaced left femoral neck fracture and chest x-ray suggested emphysema, no focal findings. OVERALL ASSESSMENT: A 73-year-old with reportedly mild chronic obstructive pulmonary disease/emphysema and previous smoking history, now with a new traumatic left femoral neck fracture, scheduled this afternoon for partial left hip replacement. The patient represents a mild to moderate risk given her age and presence of chronic obstructive pulmonary disease apparently with no history of underlying ischemic cardiac disease and the absence of anginal type symptoms. Her chest is clear and I suspect she will do well from the surgery. I would continue her on her current Advair Diskus inhaler and using nebulizer with DuoNeb solution every 4 hours as needed postoperatively with incentive spirometry ordered and would continue O2 supplementation as required to maintain saturations greater than 88%. The patient has been borderline with her saturations in the past and suspect that she will require O2 postoperatively and at time of discharge. We will follow along with you.
[2018-10-07] MEDS ORDERED: PHENYLEPHRINE 100MCG/ML 5ML SYR ONE (14:01)
[2018-10-07] MEDS ORDERED: ePHEDrine sulfate 50 MG/ML SYR ONE (14:01)
[2018-10-07] MEDS ORDERED: CEFAZOLIN 1000MG 1,000 MG/7.5 ML SYR IV SCH (14:15)
[2018-10-07] MEDS ORDERED: CEFAZOLIN 250 MG/ML 1 GM VIAL ONE (14:21)
[2018-10-07] MEDS ORDERED: ONDANSETRON INJ 2 MG/ML 2 ML VIAL ONE (14:21)
--- NOTE | 2018-10-07 15:06 | Fluoroscopy Report ---
FL pelvis 1-2V CLINICAL HISTORY: HIP FX COMPARISON STUDY: Pelvis and left hip radiographs October 06, 2018. FLUOROSCOPY TIME: 15 seconds. FLUOROSCOPIC IMAGES: 5 FINDINGS: These images demonstrate expected findings during total left hip arthroplasty. The hardware is intact. There is no periprosthetic fracture or unexpected radiopaque foreign body. IMPRESSION: Expected findings during total left hip arthroplasty. Electronically signed by: Kalyan Tesfaye M.D. 10/07/2018 3:04 PM
--- NOTE | 2018-10-07 15:13 | Operative Report ---
Post Operative Report Date of Surgery October 07, 2018 Pre & Post Diagnosis Operation Date: 10/07/18 11:00 Pre-Op Diagnosis: Left Hip Fracture Post-Op Diagnosis: Left Hip Fracture Procedure Operation Date: 10/07/18 11:00 Actual Procedures p hip hemiarthroplasty Cemented Anterior, Left(Left) - Rosalino Hutchison DO Surgeon Rosalino Hutchison DO [employer] Teacher Derrick López PAC Estimated Blood Loss 200 Findings Consistent with Post-Op Diagnosis Specimens Left femoral head Complications none Disposition Disposition: Recovery Room Indications 3-year-old female who fell last night onto her left hip. She came to the emergency room. X-rays and clinical examination were diagnostic for a minimally displaced left femoral neck fracture. After discussions with her and her she elected to undergo a left hip hemiarthroplasty. Description of Procedure Implants used Lillie LDFX hip hemiarthroplasty system with a size 14 LDFX stem, a 47 mm bipolar shell with a 28 mm head and a 0 neck Patient arrived from her hospital room for the above procedure. They were seen in the preoperative holding area and the operative extremity was identified and signed. They were given a general anesthetic. They were given a preoperative antibiotic and TXA. They were taken back To the operating room and laid on the table in the supine position. The leg was brought out through a Puristst leg positioner. The hip was then prepped and draped in sterile fashion. A timeout was done and the patient in upper extremities properly identified. An anterior approach was used. Dissection was taken down through the fascia and the tensor muscle belly was retracted laterally and the rectus was retracted medially. The circumflex vessels were identified and ligated. The capsule was then incised and tagged for later repair. The femoral neck was then cut and the femoral head was removed. The acetabulum was exposed. The femoral head measured to be a size 47 and the 47 trial was used. It appeared to be a good fit. The proximal femur was then exposed. Sequential broaching up to a size 14 broach was done. Off that broach a size 47 head with a 0 neck was trialed. The hip was reduced and fluoroscopic images showed anatomic alignment of the implants in acceptable length. The broach was removed. The final size 14 LDFX stem was then cemented into place with Palacos G cement. 47 mm bipolar shell with a 28 mm head and a standard 0 neck was then impacted into place in the hip was reduced. Final fluoroscopic images showed anatomic reduction of the hip. The capsule was then closed with #1 Vicryl suture. The wound was then irrigated with 3 L of normal saline solution with bacitracin. The fascia was closed with #1 PDS suture. Skin was closed with 2-0 Vicryl, violette, and a Irma VAC dressing. The patient was then transferred to a hospital bed and taken to the post anesthesia care unit in stable condition. They tolerated the procedure well. I attest to the content of the Intraoperative Record and any orders documented therein. Any exceptions are noted below.
--- NOTE | 2018-10-07 15:53 | XRay Report ---
XR hip LT min 2V CLINICAL HISTORY: Post-Operative implant position COMPARISON: Pelvis and left hip radiographs October 06, 2018 FINDINGS: Alignment of the total left hip arthroplasty is anatomic. There is no periprosthetic fract ure or unexpected radiopaque foreign body. Skin violette are present. IMPRESSION: Expected findings following total left hip arthroplasty. Electronically signed by: Kalyan Tesfaye M.D. 10/07/2018 3:52 PM
--- NOTE | 2018-10-07 16:08 | Anesthesiology Progress Note ---
Date of Service October 07, 2018 Anesthesia Post Procedure Vital Signs Vital Signs: Temp Pulse Pulse Pulse Resp BP BP 10/07/18 15:55 104 H 20 140/74 10/07/18 15:47 104 H 20 150/73 H 10/07/18 15:41 102 H 20 143/73 H 10/07/18 15:31 36 C L 103 H 16 134/70 10/07/18 15:30 100 H 20 140/68 10/07/18 09:30 37.5 C 10/07/18 08:15 10/07/18 07:20 36.4 C L 82 16 10/07/18 07:00 75 16 10/07/18 00:57 89 18 10/07/18 00:00 36.8 C 72 18 127/52 L 10/06/18 23:35 36.8 C 94 H 18 138/68 10/06/18 23:20 86 18 145/86 H 10/06/18 22:32 85 18 10/06/18 19:55 36.5 C 92 H 22 149/88 H BP Pulse Ox Pulse Ox 10/07/18 15:55 93 10/07/18 15:47 97 10/07/18 15:41 99 10/07/18 15:31 10/07/18 15:30 98 10/07/18 09:30 10/07/18 08:15 96 10/07/18 07:20 128/70 96 10/07/18 07:00 95 10/07/18 00:57 100 10/07/18 00:00 92 10/06/18 23:35 94 10/06/18 23:20 94 10/06/18 22:32 131/73 95 10/06/18 19:55 93 Pain Intensity Left Hip: Pain Intensity: 8 Notes Mental Status: alert / awake / arousable Patient Amnestic to Procedure: Yes Nausea / Vomiting: adequately controlled Pain: adequately controlled Airway Patency, RR, SpO2: stable & adequate BP & HR: stable & adequate Hydration State: stable & adequate Anesthetic Complications: no major complications apparent
[2018-10-07] MEDS ORDERED: SODIUM CHLORIDE 0.9% 1000ML 1,000 ML IV SCH (16:42)
[2018-10-07] MEDS: ENOXAPARIN INJ 40 MG/0.4 ML SYR SQ SCH (17:56)
[2018-10-07] MEDS: CEFAZOLIN 1000MG 1,000 MG/7.5 ML SYR IV SCH (20:48)
[2018-10-07] MEDS ORDERED: NITROGLYCERIN SL 0.4 MG/TAB TAB SL STA (23:00)
[2018-10-07] MEDS ORDERED: NITROGLYCERIN SL 0.4 MG/TAB TAB ONE (23:04)
[2018-10-07 23:35] LABS: Basophils # (auto) 0.01 K/uL (0-0.2); Basophils % (auto) 0.1 %; Eosinophils # (auto) 0.01 K/uL (0-0.5); Eosinophils % (auto) 0.1 %; Hematocrit (blood only) 37.5 % (37-47); Hemoglobin 11.9 g/dL (12.0-16.0); Immature Granulocytes # (auto) 0.05 K/uL (0.00-0.02); Immature Granulocytes % (auto) 0.4 %; Lymphocytes % (auto) 5.7 %; Mean Corpuscular Hgb Conc 31.7 g/dL (32-36); Mean Corpuscular Volume 93.3 fL (80-100); Mean Platelet Volume 9.5 fL (7.4-10.4); Monocytes % (auto) 6.5 %; Neutrophils # (auto) 12.17 K/uL (1.4-6.5); Neutrophils % (auto) 87.2 %; Platelet Count 218 K/uL (130-400); RDW Coefficient of Variation 13.2 % (11.5-14.5); RDW Standard Deviation 45.1 fL (36.4-46.3); Red Blood Count 4.02 M/uL (4.2-5.4); White Blood Count 13.94 K/uL (4.8-10.8)
[2018-10-07 23:45] LABS: Partial Thromboplastin Ratio 1.4
[2018-10-08 00:07] LABS: Albumin Level 2.9 gm/dl (3.4-5.0); BUN Creatinine Ratio 26.9 (10-20); Bilirubin,Total 0.6 mg/dl (0.1-1); Calcium 7.5 mg/dl (8.5-10.1); Creatinine Clr Calc Pharmacy 58.3 ml/min; Est GFR (African American) 98.7; Est GFR (Non-African American) 85.2; Magnesium 1.8 mg/dl (1.8-2.4); Potassium 4.4 mmol/L (3.5-5.1); Total Protein 5.9 gm/dl (6.4-8.2); Troponin I 0.109 ng/ml (0-0.045)
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
[2018-10-08] MEDS ORDERED: OPTIRAY 320 125ml IV PRN (01:18)
[2018-10-08] MEDS ORDERED: CALCIUM CARBONATE 500 MG CHEWABLE TAB PO STA (01:44)
[2018-10-08] MEDS ORDERED: ARTIFICIAL TEARS OPB STA (01:44)
[2018-10-08] MEDS ORDERED: LORATADINE 10 MG TAB PO ONE (01:44)
[2018-10-08] MEDS ORDERED: NITROGLYCERIN SL 0.4 MG/TAB TAB SL PRN (01:48)
[2018-10-08] MEDS ORDERED: ASPIRIN 325 MG ECTAB PO SCH (02:30)
--- NOTE | 2018-10-08 04:00 | Hospitalist Progress Note ---
Date of Service October 08, 2018 Delayed Entry Date of Service 10/07/18 Assessment & Plan (1) Fracture of left hip: (2) Fall: plan for surgery today Pulm consulted for hypoxia, COPD awaiting recommendations if cleared,no medical contraindications for planned ortho surgery risk for cardiopulmonary complications moderate-high given advanced age, COPD with hypoxia patient understanding and agreeable, would like to proceed with surgery (3) Multiple sclerosis: neuro status at baseline (4) Hypothyroidism: Continue levothyroxine (5) COPD, mild: - lungs clear to auscultation CXR reviewed - still on 2 L via OR consult Pulm -Continue Advair inhaler. Albuterol, Duonebs as needed (6) Insomnia: Takes two 1mg lorazepam each night at home DVT Ppx: SCDs Code status: FULL per discussion with patient PCP: Henry Dispo: anticipate need for Rehab Subjective ff up for hip fracture seen resting in bed, comfortable has hip pain worse with movement pain medication helping has some nausea denies dyspnea, cough, chest pain, palpitations no other symptoms Physical Exam 2 Vital Signs (Past 24 Hours): Last Vital Signs Temp 36.6 C 10/07/18 23:02 Pulse 72 10/07/18 23:02 Resp 18 10/07/18 23:02 BP 113/68 10/07/18 23:02 Pulse Ox 93 10/07/18 23:30 Physical Exam: General- oriented x 3, not in distress, speaks in sentences with no effort or accessory muscle use Eyes- anicteric Neck- no JVD Lungs- clear breath sounds bilaterally, no rales/wheezes Heart- normal rate, regular rhythm; no murmurs Abdomen- normal bowel sounds, nondistended, soft, nontender Extremities- no pretibial edema, no calf tenderness Neuro- alert, oriented x 3; no gross focal neurologic deficits Skin- warm & dry Results & Data Laboratory Results noted and reviewed _ (1) Fracture of left hip Encounter type: initial encounter Fracture healing: Fracture type: closed Open fracture type: Qualified Code(s): S72.002A - Fracture of unspecified part of neck of left femur, initial encounter for closed fracture (2) Fall Encounter type: initial encounter Qualified Code(s): W19.XXXA - Unspecified fall, initial encounter
[2018-10-08 05:32] LABS: Basophils # (auto) 0.02 K/uL (0-0.2); Basophils % (auto) 0.2 %; Hematocrit (blood only) 34.6 % (37-47); Hemoglobin 10.9 g/dL (12.0-16.0); Immature Granulocytes # (auto) 0.04 K/uL (0.00-0.02); Immature Granulocytes % (auto) 0.3 %; Lymphocytes # (auto) 0.98 K/uL (1.2-3.4); Lymphocytes % (auto) 8.1 %; Mean Corpuscular Hgb Conc 31.5 g/dL (32-36); Mean Corpuscular Volume 93.3 fL (80-100); Mean Platelet Volume 9.3 fL (7.4-10.4); Monocytes # (auto) 0.92 K/uL (0.11-0.59); Monocytes % (auto) 7.6 %; Neutrophils # (auto) 10.15 K/uL (1.4-6.5); Neutrophils % (auto) 83.8 %; Platelet Count 195 K/uL (130-400); RDW Coefficient of Variation 13.4 % (11.5-14.5); RDW Standard Deviation 45.4 fL (36.4-46.3); Red Blood Count 3.71 M/uL (4.2-5.4); White Blood Count 12.11 K/uL (4.8-10.8)
[2018-10-08 05:44] LABS: Partial Thromboplastin Ratio 1.3; Partial Thromboplastin Time 32.8 Seconds (21.0-31.0)
[2018-10-08 05:59] LABS: BUN Creatinine Ratio 24.5 (10-20); Calcium 7.8 mg/dl (8.5-10.1); Creatinine Clr Calc Pharmacy 62.8 ml/min; Est GFR (African American) 101.2; Est GFR (Non-African American) 87.3; Potassium 4.4 mmol/L (3.5-5.1)
[2018-10-08 06:04] LABS: Estimated Average Glucose 108 mg/dl
[2018-10-08 06:09] LABS: Troponin I 0.125 ng/ml (0-0.045)
[2018-10-08] MEDS: CEFAZOLIN 1000MG 1,000 MG/7.5 ML SYR IV SCH (06:18)
[2018-10-08] MEDS: LEVOTHYROXINE SODIUM 88 MCG TABLET PO SCH (06:19)
--- NOTE | 2018-10-08 06:36 | CT Scan Report ---
CT ANGIOGRAM OF THE CHEST CLINICAL HISTORY: Atypical chest pain shortness of breath. Possible acute pulmonary embolism. COMPARISON STUDY: Chest x-ray dated 10/07/2018 TECHNIQUE: Following the IV administration of 99 mL of Optiray-320, CT angiogram of the thorax was pe rformed from the thoracic inlet to the lung bases utilizing the pulmonary embolus protocol. Images ar e reviewed in the axial, sagittal, and coronal planes. IV contrast was administered without complicat ion. MIP imaging was performed. A dose lowering technique was utilized adhering to the principles of ALARA. CT DOSE: 194.76 mGy.cm FINDINGS: Mediastinal and hilar lymph nodes are at the upper limits of normal in size. The ascending thoracic aorta measures 32 mm. Atheromatous changes are present within the thoracic aor ta. No intimal flaps are visualized. There were no pulmonary artery filling defects to indicate acute pulmonary embolism. There are trace bilateral pleural effusions There is pulmonary emphysema. There is lower lobe bronchial wall thickening and mucous plugging. Ther e are scattered areas of parenchymal scarring. There are dependent atelectatic changes. There is an old sternal fracture. There is an L1 compression fracture likely old. IMPRESSION: 1. No evidence of acute pulmonary embolism 2. Trace bilateral pleural effusions 3. Pulmonary emphysema and scattered areas of scarring 4. Low or low bronchial wall thickening and mucous plugging Electronically signed by: Bryan Ramos M.D. 10/08/2018 6:35 AM
--- NOTE | 2018-10-08 06:46 | XRay Report ---
XR chest 1V portable CLINICAL HISTORY: Shortness of breath COMPARISON STUDY: 10/06/2018 FINDINGS: There is pulmonary emphysema. There are scattered areas of scarring. There is no acute pare nchymal consolidation. There are no pleural effusions. Postsurgical changes are present within the ce rvical spine.[ IMPRESSION: 1. Pulmonary emphysema 2. No evidence of acute parenchymal consolidation Electronically signed by: Bryan Ramos M.D. 10/08/2018 6:45 AM
--- NOTE | 2018-10-08 07:15 | Orthopedic Progress Note ---
Date of Service October 08, 2018 Assessment & Plan (1) Fracture of left hip: Overall she is doing about as well as expected. Unfortunately she was unable to get much sleep last night and she is awfully tired this morning. Therapy will see her today to get her up at bedside and see if she can ambulate. We will continue Lovenox 40 mg subcu once a day for 4 weeks after the surgery to prevent DVTs. The Irma VAC dressing will stay on for about 7 days. She is orthopedically stable for discharge when medically ready. I will see her in the office in 2 weeks for staple removal. Office phone number is [phone]. Present on Admission?: Yes Lilia Meade was seen and examined at bedside this morning. Unfortunately she was not able to get any sleep last night. She seems tired and a little bit disoriented. She is having a lot of soreness in her hip but is not too bad. Physical Exam 2 Vital Signs (Past 24 Hours): Last Vital Signs Temp 36.5 C 10/08/18 05:09 Pulse 94 H 10/08/18 05:09 Resp 20 10/08/18 05:09 BP 107/60 10/08/18 05:09 Pulse Ox 91 10/08/18 05:09 Musculoskeletal: On physical examination of the left hip, the Irma VAC dressing is to suction. Her leg lengths are equal. She is active dorsiflexion and plantarflexion of her left ankle. Results & Data Laboratory Results H & H 10/06/18 10/07/18 10/08/18 Range/Units 20:20 23:14 05:15 Hgb 14.5 11.9 L 10.9 L (12.0-16.0) g/dL Hct 43.0 37.5 34.6 L (37-47) % Coagulation 10/06/18 Range/Units 20:20 INR 1.0 (0.9-1.1) Diagnostic Findings X-rays postoperatively of the left hip show the prosthesis to be in anatomic alignment without any evidence of fracture, dislocation, or loosening. _ (1) Fracture of left hip Encounter type: initial encounter Fracture healing: Fracture type: closed Open fracture type: Qualified Code(s): S72.002A - Fracture of unspecified part of neck of left femur, initial encounter for closed fracture
[2018-10-08] MEDS: FLUTICASONE/SALMETEROL 250/50 (ADVAIR) 14 PUFF/1 INHALER INH SCH ×2 (08:14→20:35)
--- NOTE | 2018-10-08 08:34 | Anesthesiology Progress Note ---
Date of Service October 08, 2018 Anesthesia Post Procedure Vital Signs Vital Signs: Temp Pulse Pulse Resp BP BP Pulse Ox 10/08/18 07:00 36.4 C L 97 H 18 102/60 93 10/08/18 05:09 36.5 C 94 H 20 107/60 91 10/07/18 23:30 10/07/18 23:02 36.6 C 72 18 113/68 93 10/07/18 22:53 36.6 C 96 H 26 H 119/70 90 10/07/18 19:33 36.3 C L 93 H 16 119/71 93 10/07/18 17:37 87 L 10/07/18 17:35 36.7 C 105 H 18 123/73 83 L 10/07/18 17:08 36.5 C 96 H 16 110/59 L 93 10/07/18 16:35 36.3 C L 85 16 127/78 90 10/07/18 16:15 36.2 C L 95 H 18 123/71 93 10/07/18 16:07 94 H 18 148/70 H 94 10/07/18 15:55 104 H 20 140/74 93 10/07/18 15:47 104 H 20 150/73 H 97 10/07/18 15:41 102 H 20 143/73 H 99 10/07/18 15:31 36 C L 103 H 16 134/70 10/07/18 15:30 100 H 20 140/68 98 10/07/18 09:30 37.5 C Pulse Ox 10/08/18 07:00 10/08/18 05:09 10/07/18 23:30 93 10/07/18 23:02 10/07/18 22:53 10/07/18 19:33 10/07/18 17:37 10/07/18 17:35 10/07/18 17:08 10/07/18 16:35 10/07/18 16:15 10/07/18 16:07 10/07/18 15:55 10/07/18 15:47 10/07/18 15:41 10/07/18 15:31 10/07/18 15:30 10/07/18 09:30 Pain Intensity Left Hip: Pain Intensity: 5 Notes Mental Status: alert / awake / arousable and participated in evaluation Nausea / Vomiting: adequately controlled Pain: adequately controlled Airway Patency, RR, SpO2: stable & adequate BP & HR: stable & adequate Hydration State: stable & adequate
--- NOTE | 2018-10-08 09:26 | Cardiology Consultation ---
Date of Consultation October 08, 2018 Assessment & Plan (1) Atypical chest pain: Patient symptoms appear vague in nature no EKG changes with complaints. Troponins are elevated but flat in a pattern consistent with noncardiac source patient with underlying multiple sclerosis recent noncardiac surgery Patient is mildly tachycardic with ventricular ectopy we will add low-dose beta- terence though will discontinue if not tolerated (2) Fracture of left hip: Recovering from recent surgery as per orthopedics (3) COPD, mild: History reviewed echocardiogram suggest mild elevation pulmonary pressures consistent with history Continue fall oxygen saturation (4) Elevated troponin: As noted above no EKG changes, echocardiogram normal wall motion symptoms atypical suspect elevated troponin reflects noncardiac source. Will follow History of Present Illness Reason for Consultation: Chest discomfort post hip replacement Requesting Physician: Dr. Green Attending Physician: Feliciano Green MD History of Present Illness Patient is a 73-year-old female without prior cardiac disease per her description who suffered a mechanical fall and subsequent left hip fracture. She was admitted and underwent left surgical hip repair. In the recovery phase last evening patient noted atypical chest discomfort with little recollection per patient this morning. She did note some correlation with cough as well as abdominal discomfort. Has had no further chest pain this morning notes no tachypalpitations syncope or near syncope. Notes no prior history of myocardial infarction angina or congestive heart failure. There is carry a history of COPD but has not required oxygen supplementation. She currently denies fevers chills sweats cough or shortness of wheeze or hemoptysis there was some very vague in describing symptoms. Does admit to some abdominal bloating and distention has not moved her bowels only complaint at the time of examination was mild abdominal discomfort Champagne catheter in place. No chest wall pain or discomfort Allergies Allergy/AdvReac Type Severity Reaction Status Date / Time No Known Allergies Allergy Unknown Verified 10/06/18 20:25 Home Medications Home Medications Medication Instructions Recorded Confirmed Type albuterol sulfate [Ventolin HFA] 2 puff INHALATION QID PRN 10/06/18 10/06/18 History fluticasone-salmeterol [Advair 1 puff INHALATION BID PRN 10/06/18 10/06/18 History Diskus] ipratropium-albuterol 3 ml INHALATION Q4 PRN 10/06/18 10/06/18 History levothyroxine 88 mcg PO DAILY 10/06/18 10/06/18 History lorazepam [Ativan] 2 mg PO HS PRN 10/06/18 10/06/18 History omega 3-mnv-ztd-fish oil 1 cap PO DAILY 10/06/18 10/06/18 History polyethylene glycol 3350 [Miralax] 17 g PO BID PRN 10/06/18 10/06/18 History vitamins A,C,P-jxfp-irkfba 1 tab PO DAILY 10/06/18 10/06/18 History [PreserVision AREDS] zoledronic pbkc-cwavgate-bettp 5 mg IV UD 10/06/18 10/06/18 History [Reclast] Patient History Medical History Cervical spondylosis with myelopathy (Chronic) Attic perforation of tympanic membrane, left ear (Resolved) Hypothyroidism (Chronic) COPD, mild (Chronic) Insomnia (Chronic) Osteoporosis (Chronic) Status post closed fracture of right femur (Resolved) Multiple sclerosis (Chronic) Surgical History H/O cervical spine surgery (Resolved) History of hysterectomy (Resolved) Family History Father Heart disease Sister Breast cancer Social History Current Living Situation: Spouse Other Information That Helps Us Care for You: No Feels Safe at Home: Yes Safety Concerns: Feels Safe At This Time Smoking Status: Former smoker (quit 09/2015, former <1 ppd x 55 years) Hx Alcohol Use: No Hx Substance Use: No Beliefs That Will Affect Care: None Communication Ability: Effective Review of Systems As per HPI and otherwise negative or unobtainable Physical Exam 2 Vital Signs (Past 24 Hours): Last Vital Signs Temp 36.4 C L 10/08/18 07:00 Pulse 97 H 10/08/18 07:00 Resp 18 10/08/18 07:00 BP 102/60 10/08/18 07:00 Pulse Ox 93 10/08/18 07:00 Physical Exam: Frail-appearing age-appropriate female ENMT: external ear and nose normal, oropharynx normal Neck: normal visual inspection and trachea midline Respiratory: normal respiratory effort, lungs clear to auscultation Cardiovascular: Rate/Rhythm: regular rate and regular rhythm Heart Sounds: normal S1 and normal S2; no gallop and no murmur Palpation: normal PMI Vessels: normal carotid upstroke; no carotid bruit and no abdominal aortic bruit Extremities: no pedal edema Chest (Breasts): Chest: normal inspection of chest (Nontender to palpate) Gastrointestinal (Abdomen): Inspection/Auscultation: + hypoactive bowel sounds Percussion/Palpation: + abdomen tender (Mild) and abdomen soft; no hepatosplenomegaly and no abdominal aortic enlargement Musculoskeletal: Surgical incision left hip intact without large hematoma Neurologic: Vague historian with chronic paresthesias of both lower extremities right greater than left Genitourinary: Champagne catheter in place Results & Data Laboratory Results Laboratory Results - last 24 hr 10/07/18 10/07/18 10/07/18 06:47 23:14 23:14 WBC 13.94 H RBC 4.02 L Hgb 11.9 L Hct 37.5 MCV 93.3 MCH 29.6 MCHC 31.7 L RDW Std Deviation 45.1 RDW Coeff of Jose A 13.2 Plt Count 218 MPV 9.5 Immature Gran % (Auto) 0.4 Neut % (Auto) 87.2 Lymph % (Auto) 5.7 Overton % (Auto) 6.5 Eos % (Auto) 0.1 Baso % (Auto) 0.1 Immature Gran # (Auto) 0.05 H Neut # (Auto) 12.17 H Lymph # (Auto) 0.80 L Overton # (Auto) 0.90 H Eos # (Auto) 0.01 Baso # (Auto) 0.01 APTT 37.0 H PTT Ratio 1.4 Sodium Potassium Chloride Carbon Dioxide Anion Gap BUN Creatinine Est Cr Clr Drug Dosing Est GFR ( Amer) Est GFR (Non-Af Amer) BUN/Creatinine Ratio Glucose Estimat Average Glucose 108 Hemoglobin A1c 5.4 Calcium Magnesium Total Bilirubin AST ALT Alkaline Phosphatase Troponin I Total Protein Albumin Globulin Albumin/Globulin Ratio Triglycerides Cholesterol LDL Cholesterol, Calc VLDL Cholesterol, Calc HDL Cholesterol Cholesterol/HDL Ratio Lipase 10/07/18 10/08/18 10/08/18 23:14 05:15 05:15 WBC 12.11 H RBC 3.71 L Hgb 10.9 L Hct 34.6 L MCV 93.3 MCH 29.4 MCHC 31.5 L RDW Std Deviation 45.4 RDW Coeff of Jose A 13.4 Plt Count 195 MPV 9.3 Immature Gran % (Auto) 0.3 Neut % (Auto) 83.8 Lymph % (Auto) 8.1 Overton % (Auto) 7.6 Eos % (Auto) 0.0 Baso % (Auto) 0.2 Immature Gran # (Auto) 0.04 H Neut # (Auto) 10.15 H Lymph # (Auto) 0.98 L Overton # (Auto) 0.92 H Eos # (Auto) 0.00 Baso # (Auto) 0.02 APTT 32.8 H PTT Ratio 1.3 Sodium 139 Potassium 4.4 D Chloride 104 Carbon Dioxide 28 Anion Gap 7.0 BUN 19 H Creatinine 0.69 Est Cr Clr Drug Dosing 58.3 Est GFR ( Amer) 98.7 Est GFR (Non-Af Amer) 85.2 BUN/Creatinine Ratio 26.9 H Glucose 131 H Estimat Average Glucose Hemoglobin A1c Calcium 7.5 L Magnesium 1.8 Total Bilirubin 0.6 AST 18 ALT 20 Alkaline Phosphatase 48 Troponin I 0.109 H* Total Protein 5.9 L Albumin 2.9 L Globulin 3.0 Albumin/Globulin Ratio 1.0 Triglycerides Cholesterol LDL Cholesterol, Calc VLDL Cholesterol, Calc HDL Cholesterol Cholesterol/HDL Ratio Lipase 79 10/08/18 05:15 WBC RBC Hgb Hct MCV MCH MCHC RDW Std Deviation RDW Coeff of Jose A Plt Count MPV Immature Gran % (Auto) Neut % (Auto) Lymph % (Auto) Overton % (Auto) Eos % (Auto) Baso % (Auto) Immature Gran # (Auto) Neut # (Auto) Lymph # (Auto) Overton # (Auto) Eos # (Auto) Baso # (Auto) APTT PTT Ratio Sodium 138 Potassium 4.4 Chloride 103 Carbon Dioxide 30 Anion Gap 5.0 BUN 16 Creatinine 0.64 Est Cr Clr Drug Dosing 62.8 Est GFR ( Amer) 101.2 Est GFR (Non-Af Amer) 87.3 BUN/Creatinine Ratio 24.5 H Glucose 128 H Estimat Average Glucose Hemoglobin A1c Calcium 7.8 L Magnesium Total Bilirubin AST ALT Alkaline Phosphatase Troponin I 0.125 H* Total Protein Albumin Globulin Albumin/Globulin Ratio Triglycerides 90 Cholesterol 170 LDL Cholesterol, Calc 89 VLDL Cholesterol, Calc 18 HDL Cholesterol 63 Cholesterol/HDL Ratio 3 Lipase Diagnostic Findings Echocardiogram 10/08/2018 Sinus rhythm ventricular ectopy during imaging Borderline left hypertrophy with normal left her size and function no wall motion abnormality is EF 60-65% Mild to moderate tricuspid insufficiency is indirect evidence of mild elevation of pulmonary pressures ECG Additional Comments: EKG 07/08/2018 with chest pain. Normal sinus rhythm, rate [address] segment changes no change from preoperative study _ (1) Fracture of left hip Encounter type: initial encounter Fracture healing: Fracture type: closed Open fracture type: Qualified Code(s): S72.002A - Fracture of unspecified part of neck of left femur, initial encounter for closed fracture
[2018-10-08] MEDS: METOPROLOL TARTRATE 25 MG TAB PO SCH ×2 (11:04→20:35)
[2018-10-08] MEDS: SODIUM CHLORIDE 0.9% 1000ML 1,000 ML IV SCH ×2 (11:14→20:37)
[2018-10-08] MEDS ORDERED: MoRPHine SULFATE 2 MG/ML CARP IV PRN (12:24)
[2018-10-08] MEDS ORDERED: TRAMADOL HCL 50 MG TABLET PO PRN (12:24)
--- NOTE | 2018-10-08 12:31 | Hospitalist Progress Note ---
Date of Service October 08, 2018 delayed entry date of service 10/08/18 Assessment & Plan (1) Fracture of left hip: (2) Fall: s/p Surgery post op day 1 (+) chest pain overnight, trop 0.1-> 0.1, EKG no ischemia Cardiology consulted Metoprolol recommended, held due of episode of dizziness, orthostatic hypotension monitor (+) orthostasis IV NSS started, monitor Wound Vac in place will need Rehab/SNF (3) Multiple sclerosis: neuro status at baseline (4) Hypothyroidism: Continue levothyroxine (5) COPD, mild: - admits non adherence to Advair found to have hypoxia in the ER but asymptomatic improved with 2 L NC - lungs clear to auscultation CXR reviewed -- consulted Pulm -- Continue Advair inhaler. Albuterol, Duonebs as needed (6) Insomnia: Takes two 1mg lorazepam each night at home DVT Ppx: Lovenox Code status: FULL per discussion with patient PCP: Henry Dispo: anticipate d/c to Rehab/SNF when medically stable Subjective ff up for left hip fracture s/p surgery was having chest pain overnight trop 0.1, EKG no ischemic changed was having PT, patient apparently felt dizzy, assisted back to bed BP noted to be systolic 90s seen sitting up in bed, comfortable somewhat weak denies active dizziness, headache, chest pain, SOB pain well controlled no other symptoms Physical Exam 2 Vital Signs (Past 24 Hours): Last Vital Signs Temp 36.8 C 10/08/18 11:58 Pulse 101 H 10/08/18 11:58 Resp 18 10/08/18 11:58 BP 109/66 10/08/18 11:58 Pulse Ox 90 10/08/18 11:58 Physical Exam: General- oriented x 3, not in distress, speaks in sentences with no effort or accessory muscle use Eyes- anicteric Neck- no JVD Lungs- clear breath sounds bilaterally Heart- normal rate, regular rhythm; no murmurs Abdomen- normal bowel sounds, nondistended, soft, nontender Extremities- (+) left thigh: wound vac in place, moderate edema pretibial edema, no calf tenderness Neuro- alert, oriented x 3; no gross focal neurologic deficits Skin- warm & dry Results & Data Laboratory Results noted and reviewed _ (1) Fracture of left hip Encounter type: initial encounter Fracture healing: Fracture type: closed Open fracture type: Qualified Code(s): S72.002A - Fracture of unspecified part of neck of left femur, initial encounter for closed fracture (2) Fall Encounter type: initial encounter Qualified Code(s): W19.XXXA - Unspecified fall, initial encounter
[2018-10-08] MEDS: ACETAMINOPHEN 325 MG TAB PO PRN (14:34)
[2018-10-08] MEDS: ENOXAPARIN INJ 40 MG/0.4 ML SYR SQ SCH (17:33)
[2018-10-09] MEDS: LEVOTHYROXINE SODIUM 88 MCG TABLET PO SCH (06:34)
[2018-10-09] MEDS: FLUTICASONE/SALMETEROL 250/50 (ADVAIR) 14 PUFF/1 INHALER INH SCH ×2 (08:41→20:27)
[2018-10-09] MEDS: METOPROLOL TARTRATE 25 MG TAB PO SCH ×2 (09:25→20:27)
--- NOTE | 2018-10-09 09:35 | Progress Note ---
DATE: 10/09/2018 SUBJECTIVE: A 73-year-old white female postop day 2 from a left cemented bipolar hip arthroplasty for a fracture. She is doing pretty well. Pretty groggy this morning. No new complaints. Hip is sore but not unmanageable. OBJECTIVE: VITAL SIGNS: Temperature 36.8. Stable. Slightly tachycardic at 106. GENERAL: Examination shows a pleasant elderly female, lying in bed. She is pretty groggy entirely this morning. She is arousable and responds. EXTREMITIES: Examination of the left hip reveals the wound VAC to be in place. Leg lengths are equal. She can dorsiflex and plantarflex her foot appropriately. LABORATORY DATA: Hemoglobin 10.9, hematocrit 34.6, white cell count is slightly elevated at 12.11 but better from yesterday. ASSESSMENT: A 73-year-old white female postop day 2 from a left cemented bipolar hip arthroplasty for a fracture. She seems to be doing okay. Pain is controlled. Hip is located. Fairly tired this morning but it is early. PLAN: 1. DVT prophylaxis including thigh-high TEDs, SCDs, and Lovenox. 2. PT/OT. Weight bear as tolerated. Left total hip protocol. 3. Pain control, doing okay with current pain regimen. We need to be careful not to overmedicate her as she seems a bit sedated this morning. 4. Medical management as per the medicine service. 5. Disposition: She is orthopedically stable and acceptable for discharge at any time medically stable. She needs to follow up with Dr. Hutchison 2 weeks from surgery date. Any orthopedic questions can be directed at me at [phone].
--- NOTE | 2018-10-09 10:27 | Cardiology Progress Note ---
Date of Service October 09, 2018 Assessment & Plan (1) Atypical chest pain: No recurrence of symptoms chest pain worsening shortness of breath. Orthostasis noted yesterday and beta-terence held. As volume status improved still feel patient would benefit from low-dose beta-terence for rate and blood pressure control underlying MS may limit its usage (2) Fracture of left hip: Recovering from recent surgery as per orthopedics (3) COPD, mild: History reviewed echocardiogram suggest mild elevation pulmonary pressures consistent with history Continue fall oxygen saturation (4) Elevated troponin: As noted above no EKG changes, echocardiogram normal wall motion symptoms atypical suspect elevated troponin reflects noncardiac source. Will follow Subjective Patient seen and examined chart medications laboratory studies reviewed. Patient sitting out of bed to chair today notes no acute complaints. Did become lightheaded and tachycardic during physical therapy yesterday no complaints today and up to bedside. Denies any chest pain or discomfort. Surgical wounds are healing with good pain control Physical Exam 2 Vital Signs (Past 24 Hours): Last Vital Signs Temp 36.8 C 10/09/18 07:28 Pulse 106 H 10/09/18 07:28 Resp 18 10/09/18 07:28 BP 139/72 10/09/18 07:28 Pulse Ox 91 10/09/18 07:28 ENMT: external ear and nose normal, oropharynx normal Neck: normal visual inspection and trachea midline Respiratory: normal respiratory effort, lungs clear to auscultation Cardiovascular: Rate/Rhythm: regular rate and regular rhythm Heart Sounds: normal S1 and normal S2; no gallop and no murmur Palpation: normal PMI Vessels: normal carotid upstroke; no carotid bruit and no abdominal aortic bruit Extremities: no pedal edema Chest (Breasts): Chest: normal inspection of chest (Nontender to palpate) Gastrointestinal (Abdomen): Inspection/Auscultation: + hypoactive bowel sounds Percussion/Palpation: + abdomen tender (Mild) and abdomen soft; no hepatosplenomegaly and no abdominal aortic enlargement _ (1) Fracture of left hip Encounter type: initial encounter Fracture healing: Fracture type: closed Open fracture type: Qualified Code(s): S72.002A - Fracture of unspecified part of neck of left femur, initial encounter for closed fracture
[2018-10-09] MEDS: SODIUM CHLORIDE 0.9% 1000ML 1,000 ML IV SCH ×2 (12:38→23:31)
--- NOTE | 2018-10-09 15:52 | Hospitalist Progress Note ---
Date of Service October 09, 2018 Assessment & Plan (1) Fracture of left hip: Secondary to mechanical fall Status post surgery, POD #2 Appreciate 1 or 3 input and recommendation Complains to have some pain otherwise stable (2) Fall: Mechanical fall May be complicated by multiple sclerosis and leg weakness We will get PT OT evaluation Likely to need placement (3) Multiple sclerosis: Neuro status at baseline Complains weakness involving the left lower extremity May be secondary to multiple sclerosis flare We will continue with physical therapy and monitor (4) Hypothyroidism: Continue levothyroxine (5) COPD, mild: - admits non adherence to Advair found to have hypoxia in the ER but asymptomatic improved with 2 L NC -- consulted Pulm -- Continue Advair inhaler. Albuterol, Duonebs as needed (6) Insomnia: Takes two 1mg lorazepam each night at home DVT Ppx: Lovenox Code status: FULL per discussion with patient PCP: Henry Dispo: anticipate d/c to Rehab/SNF when medically stable (7) Atypical chest pain: Chest pain overnight 10/07, trop 0.1-> 0.1, EKG no ischemia Cardiology consulte-appreciate input and recommendation Metoprolol recommended, held due of episode of dizziness, orthostatic hypotension Subjective This is a 73-year-old female with a past medical history of multiple sclerosis, osteoporosis, hypothyroidism, mild COPD, insomnia and other medical problems listed below who presents after a mechanical fall at home this afternoon and was found to have a subcapital mildly displaced left femoral neck fracture. 10/09 The patient was seen and examined in medical floor in presence of the family members Complains to have constipation Also has left leg weakness Denies any other symptoms Physical Exam 2 Vital Signs (Past 24 Hours): Last Vital Signs Temp 37 C 10/09/18 15:16 Pulse 90 10/09/18 15:16 Resp 18 10/09/18 15:16 BP 117/65 10/09/18 15:16 Pulse Ox 94 10/09/18 15:16 Constitutional: not obese ENMT: external ear and nose normal, oropharynx normal Mouth: + edentulous Mallampati Class: II Neck: normal visual inspection and trachea midline; neck extension not limited Respiratory: normal respiratory effort, lungs clear to auscultation normal respiratory effort Cardiovascular: Rate/Rhythm: regular rate and regular rhythm Heart Sounds: normal S1 and normal S2; no gallop and no murmur Palpation: normal PMI Vessels: normal carotid upstroke; no carotid bruit and no abdominal aortic bruit Chest (Breasts): Chest: normal inspection of chest (Nontender to palpate) Gastrointestinal (Abdomen): Inspection/Auscultation: + hypoactive bowel sounds Percussion/Palpation: + abdomen tender (Mild) and abdomen soft; no hepatosplenomegaly and no abdominal aortic enlargement Musculoskeletal: Spine: + limited cervical ROM Neurologic: moves all extremities Motor/Sensory: + sensory deficit (RUE > LUE) Psychiatric: Orientation: alert and oriented x 3 Results & Data Medications Administered Current Inpatient Medications Acetaminophen (Tylenol) 650 mg PO Q4H PRN PRN Reason: pain/fever Stop: 11/06/18 00:16 Last Admin: 10/08/18 14:34 Dose: 650 mg Bisacodyl (Dulcolax) 10 mg SC DAILY PRN PRN Reason: Constipation Stop: 11/06/18 00:16 Last Admin: 10/09/18 12:38 Dose: 10 mg Enoxaparin Sodium (Lovenox) 40 mg SQ Q24H LALO Stop: 11/06/18 16:59 Last Admin: 10/08/18 17:33 Dose: 40 mg Lorazepam (Ativan) 0.25 mg in 0.5 mls @ 0.5 mls/min IV Q4H PRN PRN Reason: Anxiety/Agitation Stop: 11/06/18 00:16 Prochlorperazine 5 mg/ Syringe 5 mls @ 5 mls/min IV Q6H PRN PRN Reason: Nausea And Vomiting Stop: 11/06/18 00:16 Sodium Chloride (Nss 1000ml) 1,000 mls @ 80 mls/hr IV .[id number] LALO Stop: 11/07/18 11:14 Last Admin: 10/09/18 12:38 Dose: 80 mls/hr Ioversol (Optiray 320 125ml) 125 ml IV ONCE PRN PRN Reason: Interaction Checking Stop: 10/12/18 01:17 Last Admin: 10/08/18 01:18 Dose: 99 ml Ipratropium [place] (Atrovent 0.02% 0.5mg/2.5ml) 0.5 mg INH Q4H PRN PRN Reason: WHEEZING/SOB Stop: 11/05/18 22:44 Last Admin: 10/07/18 06:59 Dose: 0.5 mg Levalbuterol HCl (Xopenex 1.25mg/0.5ml Neb) 1.25 mg INH Q4H PRN PRN Reason: WHEEZING/SOB Stop: 11/05/18 22:44 Last Admin: 10/07/18 06:59 Dose: 1.25 mg Levothyroxine Sodium (Synthroid) 88 mcg PO DAILYBB [facility] Stop: 11/06/18 06:29 Last Admin: 10/09/18 06:34 Dose: 88 mcg Lorazepam (Ativan) 0.5 mg PO HS PRN PRN Reason: Insomnia Stop: 11/06/18 00:16 Last Admin: 10/07/18 22:01 Dose: 0.5 mg Magnesium Hydroxide (Milk Of Magnesia) 30 ml PO DAILY PRN PRN Reason: Constipation Stop: 11/06/18 00:16 Metoprolol Tartrate (Lopressor) 12.5 mg PO BID [facility] Stop: 11/07/18 09:59 Last Admin: 10/09/18 09:25 Dose: 12.5 mg Morphine Sulfate (Morphine Sulfate) 2 mg IV Q4H PRN PRN Reason: Moderate Pain (Rating 3,4,5,6) Stop: 10/20/18 20:14 Naloxone HCl (Narcan) 0.1 mg IV UD PRN PRN Reason: opiate overdose Stop: 11/06/18 00:16 Naloxone HCl (Narcan) 0.1 mg IV UD PRN PRN Reason: Opioid Overdose Stop: 11/06/18 16:33 Nitroglycerin (Nitrostat) 0.4 mg SL PRN PRN PRN Reason: Chest Pain Stop: 11/07/18 01:47 Polyethylene Glycol (Miralax Powder Packet) 17 gm PO BID PRN PRN Reason: CONSTIPATION Stop: 11/06/18 08:59 Last Admin: 10/09/18 12:38 Dose: 17 gm Fluticasone/Salmeterol (Advair Diskus 250/50) 1 puffs INH BID [facility] Stop: 11/06/18 08:59 Last Admin: 10/09/18 08:41 Dose: 1 puffs Sodium Biphosphate/Sodium Phosphate (Fleet Enema) 132 ml SC DAILY PRN PRN Reason: Constipation Stop: 11/06/18 00:16 Tramadol HCl (Ultram) 50 mg PO Q6H PRN PRN Reason: Pain Stop: 11/06/18 00:16 _ (1) Fracture of left hip Encounter type: initial encounter Fracture healing: Fracture type: closed Open fracture type: Qualified Code(s): S72.002A - Fracture of unspecified part of neck of left femur, initial encounter for closed fracture (2) Fall Encounter type: initial encounter Qualified Code(s): W19.XXXA - Unspecified fall, initial encounter
[2018-10-09] MEDS: ENOXAPARIN INJ 40 MG/0.4 ML SYR SQ SCH (17:54)
[2018-10-09] MEDS: ACETAMINOPHEN 325 MG TAB PO PRN (23:27)
[2018-10-10] MEDS: LEVOTHYROXINE SODIUM 88 MCG TABLET PO SCH (06:19)
[2018-10-10] MEDS: FLUTICASONE/SALMETEROL 250/50 (ADVAIR) 14 PUFF/1 INHALER INH SCH ×2 (07:56→21:07)
[2018-10-10] MEDS: METOPROLOL TARTRATE 25 MG TAB PO SCH ×3 (07:56→21:07)
--- NOTE | 2018-10-10 10:47 | Cardiology Progress Note ---
Date of Service October 10, 2018 Assessment & Plan (1) Atypical chest pain: No recurrence of symptoms chest pain worsening shortness of breath. Orthostasis noted yesterday and beta-terence held. As volume status improved still feel patient would benefit from low-dose beta-terence for rate and blood pressure control underlying MS may limit its usage Telemetry demonstrates sinus tachycardia with 2 episodes of complex ventricular ectopy, asymptomatic No atrial fibrillation or atrial arrhythmias Once again related to reinitiate beta-terence (2) Fracture of left hip: Recovering from recent surgery as per orthopedics Notes more difficulty moving leg today primary service contacted (3) COPD, mild: History reviewed echocardiogram suggest mild elevation pulmonary pressures consistent with history Continue fall oxygen saturation (4) Elevated troponin: As noted above no EKG changes, echocardiogram normal wall motion symptoms atypical suspect elevated troponin reflects noncardiac source. Will follow Subjective Patient complains of pain paresthesias difficulty moving her left leg today. Notes numbness in both lower extremities. Denies any chest pains tachypalpitations dizziness or lightest notes no syncope or near syncope Physical Exam 2 Vital Signs (Past 24 Hours): Last Vital Signs Temp 37.1 C 10/10/18 08:00 Pulse 94 H 10/10/18 08:00 Resp 18 10/10/18 08:00 BP 105/51 L 10/10/18 08:00 Pulse Ox 90 10/10/18 08:00 Constitutional: no acute distress ENMT: external ear and nose normal, oropharynx normal Neck: normal visual inspection and trachea midline Respiratory: normal respiratory effort, lungs clear to auscultation Cardiovascular: Rate/Rhythm: regular rate and regular rhythm Heart Sounds: normal S1 and normal S2; no gallop and no murmur Palpation: normal PMI Vessels: normal carotid upstroke; no carotid bruit and no abdominal aortic bruit Extremities: no pedal edema Chest (Breasts): Chest: normal inspection of chest (Nontender to palpate) Gastrointestinal (Abdomen): Inspection/Auscultation: + hypoactive bowel sounds Percussion/Palpation: + abdomen tender (Mild) and abdomen soft; no hepatosplenomegaly and no abdominal aortic enlargement Neurologic: Complains of pain and difficulty moving left leg with paresthesias both lower extremities, Results & Data Diagnostic Findings Telemetry review reveals 2 short salvos of nonsustained ventricular ectopy _ (1) Fracture of left hip Encounter type: initial encounter Fracture healing: Fracture type: closed Open fracture type: Qualified Code(s): S72.002A - Fracture of unspecified part of neck of left femur, initial encounter for closed fracture
[2018-10-10 11:50] LABS: BUN Creatinine Ratio 17.5 (10-20); Calcium 7.5 mg/dl (8.5-10.1); Creatinine Clr Calc Pharmacy 69.3 ml/min; Est GFR (African American) 104.5; Est GFR (Non-African American) 90.2; Potassium 3.8 mmol/L (3.5-5.1)
[2018-10-10] MEDS ORDERED: GADOBUTROL 65ML VIAL IV PRN (13:21)
--- NOTE | 2018-10-10 13:41 | Magnetic Resonance Report ---
MR brain MS wo/w con CLINICAL HISTORY: Multiple sclerosis. Recent fall. Bilateral leg numbness. COMPARISON STUDY: No previous studies for comparison. TECHNIQUE: Utilizing a 1.5 Millie magnet, multiplanar, multi echo imaging of the brain was performed p re and postcontrast administration according to the multiple sclerosis protocol. Intravenous injectio n of 6.5 cc of Gadavist was uneventful. FINDINGS: Note is made of a 4 mm hyperintense focus within the posterior left frontal lobe on diffusi on weighted sequence image 15 of 44. This is hypointense on the ADC map. Additional foci of apparent increased signal intensity on the diffusion-weighted sequence are likely artifactual. No acute intrac ranial hemorrhage, midline shift or mass effect is present. Ventricular system is unremarkable for ag e. Basilar cisterns are patent. There are no extra-axial collections. 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 There is extensive confluent white matter T2 hyperintensity. Calv arial signal is maintained. A 6 mm right frontal scalp nodule is noted on axial image 14 of 22. No in tracranial mass or pathologic enhancement. Flow-voids for the major intracranial vessels are present. IMPRESSION: 1. Punctate 4 mm hyperintense focus within the left frontal lobe on diffusion-weighted sequence. This may reflect artifact or a punctate acute infarct. Active demyelination could appear similar although is considered less likely. 2. No acute intracranial hemorrhage, midline shift or mass effect. 3. Extensive confluent white matter T2 hyperintensity which may reflect demyelination or small vessel disease. 4. Indeterminate 6 mm right frontal scalp nodule. Electronically signed by: Kalyan Tesfaye M.D. 10/10/2018 1:39 PM
[2018-10-10] MEDS: SODIUM CHLORIDE 0.9% 1000ML 1,000 ML IV SCH (13:47)
--- NOTE | 2018-10-10 14:49 | Neurology Consultation ---
Date of Consultation October 10, 2018 Assessment & Plan (1) Cervical spondylosis with myelopathy: 1. MRI brain with and without no acute enhancing lesions to suggest a MS flare. 2. MS- there has been a questions whether patient has MS. Her MRI brain reflexes leukomalacia and small vessel disease not convincing for MS 3. would not recommend steroids at this time 4. she has an appointment with Dr Phoenix in December 2018 5. current left hip fracture is limiting exam on lower extremities. Once rehabed full evaluation can be done 6. numbness in hands and LE have been ongoing issues since the ACDF 2011. left foot numbnes is likely due to current issues with hip and will take time to resolve. Supervising Physician Co-Signing Physician Notes I have seen and discussed above patient with Dr True Anton. Patient was seen and examined. Agree with Lore Buckner as noted above. Patient with history of cervical myelopathy s/p compression and leukoencephalopathy on MRI brain. No clear diagnosis of multiple sclerosis. Having some left hip flexion weakness in the setting of left hip fracture. Also noted some numbness of left foot. On examine she has wound vac in left hip. Has high arched feet and hammer toes. Hyporeflexia in lower extremities. Sensation intact to light touch and position sense. Toes down going. No clonus. I do not believe this is a multiple sclerosis exacerbation. I would not start IV steroids at this time. Recommend PT/OT and follow up in Neurology clinic as outpatient. History of Present Illness Reason for Consultation: MS flare Requesting Physician: Delvis Navarro MD Attending Physician: Delvis Navarro MD History of Present Illness Halina is an 73 year old female PMH- questionable MS, osteoporosis, hypothyroidism, mild COPD, insomnia. She was seen in the ED after a mechanical fall at home this afternoon. Her son was helping her out the door when the family dog knocked her legs out from under her, causing her to fall to the her left side. She had left hip pain that is a 7/10. She sees Dr. Phoenix in neurology clinic. She ambulates without assistive devices at baseline. She had an ACDF 12/07/11 for chronic motor and sensory deficits in bilateral hands that are slight (R>L). She also had a right femur fracture after a mechanical fall in 2014 with a surgical repair done by the [facility] in 2014. An echo in May 2018 that showed normal LV systolic function with estimated EF of 60% , no wall motion abnormality of left ventricle, grade 1 diastolic dysfunction and aortic valve sclerosis. Her left LE is numb since the fall and the hip surgery. denies CP, SOB, abdominal pain, N, V, vision changes, pain with eye movement, bowel or bladder issues. Allergies Allergy/AdvReac Type Severity Reaction Status Date / Time No Known Allergies Allergy Unknown Verified 10/06/18 20:25 Home Medications Home Medications Medication Instructions Recorded Confirmed Type albuterol sulfate [Ventolin HFA] 2 puff INHALATION QID PRN 10/06/18 10/06/18 History fluticasone-salmeterol [Advair 1 puff INHALATION BID PRN 10/06/18 10/06/18 History Diskus] ipratropium-albuterol 3 ml INHALATION Q4 PRN 10/06/18 10/06/18 History levothyroxine 88 mcg PO DAILY 10/06/18 10/06/18 History lorazepam [Ativan] 2 mg PO HS PRN 10/06/18 10/06/18 History omega 9-kcy-fon-fish oil 1 cap PO DAILY 10/06/18 10/06/18 History polyethylene glycol 3350 [Miralax] 17 g PO BID PRN 10/06/18 10/06/18 History vitamins A,C,R-jeif-ueqsnq 1 tab PO DAILY 10/06/18 10/06/18 History [PreserVision AREDS] zoledronic fswe-hsjudcrp-iipof 5 mg IV UD 10/06/18 10/06/18 History [Reclast] Patient History Medical History Cervical spondylosis with myelopathy (Chronic) [place] perforation of tympanic membrane, left ear (Resolved) Hypothyroidism (Chronic) COPD, mild (Chronic) Insomnia (Chronic) Osteoporosis (Chronic) Status post closed fracture of right femur (Resolved) Multiple sclerosis (Chronic) Surgical History H/O cervical spine surgery (Resolved) History of hysterectomy (Resolved) Family History Father Heart disease Sister Breast cancer Social History Current Living Situation: Spouse Other Information That Helps Us Care for You: No Feels Safe at Home: Yes Safety Concerns: Feels Safe At This Time Smoking Status: Former smoker (quit 09/2015, former <1 ppd x 55 years) Hx Alcohol Use: No Hx Substance Use: No Beliefs That Will Affect Care: None Communication Ability: Effective Physical Exam 2 Vital Signs (Past 24 Hours): Last Vital Signs Temp 36.5 C 10/10/18 13:44 Pulse 91 H 10/10/18 13:44 Resp 18 10/10/18 13:44 BP 150/81 H 10/10/18 13:44 Pulse Ox 90 10/10/18 08:00 Physical Exam: Constitutional: appearance nourished, healthy and normal Ears, Nose, Mouth and Throat: mucous membranes moist, no injection and skin normal, eyes normal Cardiovascular: normal S-1 and S-2 and regular rate and rhythm Respiratory: course breath sounds Musculoskeletal: no peripheral edema and good distal pulses Skin: no stigmata of neurocutaneous disease noted and normal and intact Eyes: extraocular muscles intact (EOMI) and pupils equal, round and reactive to light (PERRL) NEUROLOGIC EXAMINATION: Mental status: Alert and interactive Oriented to full date and location Oriented to person Speech fluent with no evidence of aphasia Cranial Nerves smile eye brow raise symmetric. Reflexes: Deep tendon reflexes were symmetrical and graded 2/5. Sensory: loss of sensation to vibration to mid huizar, hyper sensativity to cool touch on left mid huizar down Coordination: finger to nose dysmetric on left and with rapid hand movement Gait/Stance: sitting up in bed Motor: Negative for pronator drift of out stretched arms with eyes closed. Strength: biceps triceps hand search specialist 4+/5, plantar flex ext 4/5, hip flex on left not assessed. Results & Data Laboratory Results Abnormal lab results 10/10/18 Range/Units 10:56 Creatinine 0.58 L (0.6-1.2) mg/dl Glucose 105 H (70-99) mg/dl Calcium 7.5 L (8.5-10.1) mg/dl Diagnostic Findings MRI brain with and without- Punctate 4 mm hyperintense focus within the left frontal lobe on diffusion-weighted sequence. This may reflect artifact or a punctate acute infarct. Active demyelination could appear similar although is considered less likely. No acute intracranial hemorrhage, midline shift or mass effect. Extensive confluent white matter T2 hyperintensity which may reflect demyelination or small vessel disease. Indeterminate 6 mm right frontal scalp nodule.
[2018-10-10] MEDS: ENOXAPARIN INJ 40 MG/0.4 ML SYR SQ SCH (16:47)
--- NOTE | 2018-10-10 17:49 | Hospitalist Progress Note ---
Date of Service October 10, 2018 Assessment & Plan (1) Fracture of left hip: Secondary to mechanical fall Status post surgery, POD #2 Appreciate 1 or 3 input and recommendation Complains to have some pain otherwise stable Complains to have problem with moving left lower extremity Continue physical therapy (2) Fall: Mechanical fall May be complicated by multiple sclerosis and leg weakness We will get PT OT evaluation Likely to need placement (3) Multiple sclerosis: Neuro status at baseline Complains weakness involving the left lower extremity May be secondary to multiple sclerosis flare We will continue with physical therapy and monitor Continues to have left lower extremity weakness and tingling MRI of the brain with and without contrast did not show any evidence of multiple sclerosis flare Appreciate neurology input and recommendation Continue physical therapy and likely to be discharged tomorrow (4) Hypothyroidism: Continue levothyroxine (5) COPD, mild: - admits non adherence to Advair found to have hypoxia in the ER but asymptomatic improved with 2 L NC -- consulted Pulm -- Continue Advair inhaler. Albuterol, Duonebs as needed No acute symptoms of COPD (6) Insomnia: Takes two 1mg lorazepam each night at home DVT Ppx: Lovenox Code status: FULL per discussion with patient PCP: Henry Dispo: anticipate d/c to Rehab/SNF when medically stable (7) Atypical chest pain: Chest pain overnight 10/07, trop 0.1-> 0.1, EKG no ischemia Cardiology consulte-appreciate input and recommendation Metoprolol recommended, held due of episode of dizziness, orthostatic hypotension Appreciate cardiology input and recommendation Subjective This is a 73-year-old female with a past medical history of multiple sclerosis, osteoporosis, hypothyroidism, mild COPD, insomnia and other medical problems listed below who presents after a mechanical fall at home this afternoon and was found to have a subcapital mildly displaced left femoral neck fracture. 10/09 The patient was seen and examined in medical floor in presence of the family members Complains to have constipation Also has left leg weakness Denies any other symptoms 10/10 Complains that she cannot move her left lower extremity She denies pain has been the limiting factor Also has numbness involving the extremities She has MS and is to rule out any flare up Physical Exam 2 Vital Signs (Past 24 Hours): Last Vital Signs Temp 36.4 C L 10/10/18 16:36 Pulse 88 10/10/18 16:36 Resp 18 10/10/18 16:36 BP 117/75 10/10/18 16:36 Pulse Ox 91 10/10/18 16:36 Constitutional: not obese ENMT: external ear and nose normal, oropharynx normal Mouth: + edentulous Mallampati Class: II Neck: normal visual inspection and trachea midline; neck extension not limited Respiratory: normal respiratory effort, lungs clear to auscultation normal respiratory effort Auscultation: lungs clear to auscultation bilaterally Cardiovascular: Rate/Rhythm: regular rate and regular rhythm Heart Sounds: normal S1 and normal S2; no gallop and no murmur Palpation: normal PMI Vessels: normal carotid upstroke; no carotid bruit and no abdominal aortic bruit Extremities: no pedal edema Chest (Breasts): Chest: normal inspection of chest (Nontender to palpate) Gastrointestinal (Abdomen): Inspection/Auscultation: + hypoactive bowel sounds Percussion/Palpation: + abdomen tender (Mild) and abdomen soft; no hepatosplenomegaly and no abdominal aortic enlargement Musculoskeletal: Spine: + limited cervical ROM Neurologic: moves all extremities (Except left lower extremity, status post ORIF left hip) Motor/Sensory: + sensory deficit (RUE > LUE) Psychiatric: Orientation: alert and oriented x 3 Results & Data Laboratory Results [facility] 10/10/18 10:56 Sodium 139 Potassium 3.8 Chloride 107 Carbon Dioxide 27 BUN 10 Creatinine 0.58 L Glucose 105 H Calcium 7.5 L Medications Administered Current Inpatient Medications Acetaminophen (Tylenol) 650 mg PO Q4H PRN PRN Reason: pain/fever Stop: 11/06/18 00:16 Last Admin: 10/09/18 23:27 Dose: 650 mg Bisacodyl (Dulcolax) 10 mg [place] DAILY PRN PRN Reason: Constipation Stop: 11/06/18 00:16 Last Admin: 10/09/18 12:38 Dose: 10 mg Enoxaparin Sodium (Lovenox) 40 mg SQ Q24H [facility] Stop: 11/06/18 16:59 Last Admin: 10/10/18 16:47 Dose: 40 mg Gadobutrol (Gadavist 65ml) 6.5 ml IV ONCE PRN PRN Reason: Interaction Checking Stop: 10/14/18 13:20 Last Admin: 10/10/18 13:22 Dose: 6.5 ml Lorazepam (Ativan) 0.25 mg in 0.5 mls @ 0.5 mls/min IV Q4H PRN PRN Reason: Anxiety/Agitation Stop: 11/06/18 00:16 Prochlorperazine 5 mg/ Syringe 5 mls @ 5 mls/min IV Q6H PRN PRN Reason: Nausea And Vomiting Stop: 11/06/18 00:16 Sodium Chloride (Nss 1000ml) 1,000 mls @ 80 mls/hr IV .[id number] [facility] Stop: 11/07/18 11:14 Last Admin: 10/10/18 13:47 Dose: 80 mls/hr Ioversol (Optiray 320 125ml) 125 ml IV ONCE PRN PRN Reason: Interaction Checking Stop: 10/12/18 01:17 Last Admin: 10/08/18 01:18 Dose: 99 ml Ipratropium [place] (Atrovent 0.02% 0.5mg/2.5ml) 0.5 mg INH Q4H PRN PRN Reason: WHEEZING/SOB Stop: 11/05/18 22:44 Last Admin: 10/07/18 06:59 Dose: 0.5 mg Levalbuterol HCl (Xopenex 1.25mg/0.5ml Neb) 1.25 mg INH Q4H PRN PRN Reason: WHEEZING/SOB Stop: 11/05/18 22:44 Last Admin: 10/07/18 06:59 Dose: 1.25 mg Levothyroxine Sodium (Synthroid) 88 mcg PO DAILYBB [facility] Stop: 11/06/18 06:29 Last Admin: 10/10/18 06:19 Dose: 88 mcg Lorazepam (Ativan) 0.5 mg PO HS PRN PRN Reason: Insomnia Stop: 11/06/18 00:16 Last Admin: 10/07/18 22:01 Dose: 0.5 mg Magnesium Hydroxide (Milk Of Magnesia) 30 ml PO DAILY PRN PRN Reason: Constipation Stop: 11/06/18 00:16 Metoprolol Tartrate (Lopressor) 12.5 mg PO BID [facility] Stop: 11/09/18 10:59 Last Admin: 10/10/18 13:46 Dose: 12.5 mg Morphine Sulfate (Morphine Sulfate) 2 mg IV Q4H PRN PRN Reason: Moderate Pain (Rating 3,4,5,6) Stop: 10/20/18 20:14 Naloxone HCl (Narcan) 0.1 mg IV UD PRN PRN Reason: opiate overdose Stop: 11/06/18 00:16 Naloxone HCl (Narcan) 0.1 mg IV UD PRN PRN Reason: Opioid Overdose Stop: 11/06/18 16:33 Nitroglycerin (Nitrostat) 0.4 mg SL PRN PRN PRN Reason: Chest Pain Stop: 11/07/18 01:47 Polyethylene Glycol (Miralax Powder Packet) 17 gm PO BID PRN PRN Reason: CONSTIPATION Stop: 11/06/18 08:59 Last Admin: 10/09/18 12:38 Dose: 17 gm Fluticasone/Salmeterol (Advair Diskus 250/50) 1 puffs INH BID [facility] Stop: 11/06/18 08:59 Last Admin: 10/10/18 07:56 Dose: 1 puffs Sodium Biphosphate/Sodium Phosphate (Fleet Enema) 132 ml [place] DAILY PRN PRN Reason: Constipation Stop: 11/06/18 00:16 Tramadol HCl (Ultram) 50 mg PO Q6H PRN PRN Reason: Pain Stop: 11/06/18 00:16 _ (1) Fracture of left hip Encounter type: initial encounter Fracture healing: Fracture type: closed Open fracture type: Qualified Code(s): S72.002A - Fracture of unspecified part of neck of left femur, initial encounter for closed fracture (2) Fall Encounter type: initial encounter Qualified Code(s): W19.XXXA - Unspecified fall, initial encounter
--- NOTE | 2018-10-10 21:27 | Progress Note ---
DATE: 10/10/2018 SUBJECTIVE: A 73-year-old elderly female postop day 3 from a left cemented bipolar hip arthroplasty for fracture. She is doing pretty well. No neuro complaints today. No chest pain or shortness of breath. She is requesting some Ativan. OBJECTIVE: VITAL SIGNS: Temperature is 37.4. Vital signs stable. GENERAL: Physical examination reveals a pleasant elderly female. She is sitting up in bed, looks pretty comfortable. EXTREMITIES: Examination of the left hip reveals the leg lengths to be equal. There are wound VACs in place. NEUROLOGIC: She is neurologically intact. ASSESSMENT: A 73-year-old female postop day 3 from a left cemented bipolar hip arthroplasty for fracture, doing reasonably well. She is orthopedically stable. PLAN: 1. DVT prophylaxis including thigh-high TEDs, SCDs, and Lovenox. 2. PT/OT. Weight bear as tolerated. Left total hip protocol. 3. Pain control, doing pretty well with current pain regimen. 4. Medical management as per the medicine service. 5. Disposition: She is orthopedically acceptable for discharge any time medically stable. Any questions can be directed to me at [phone].
[2018-10-11] MEDS: SODIUM CHLORIDE 0.9% 1000ML 1,000 ML IV SCH (03:24)
[2018-10-11] MEDS: LEVOTHYROXINE SODIUM 88 MCG TABLET PO SCH (05:56)
[2018-10-11] MEDS: METOPROLOL TARTRATE 25 MG TAB PO SCH (09:18)
[2018-10-11] MEDS: FLUTICASONE/SALMETEROL 250/50 (ADVAIR) 14 PUFF/1 INHALER INH SCH (09:18)
--- NOTE | 2018-10-11 12:23 | Cardiology Progress Note ---
Date of Service October 11, 2018 Assessment & Plan (1) Atypical chest pain: No recurrence of symptoms chest pain worsening shortness of breath. Telemetry demonstrates sinus and sinus tachycardia with episode of complex ventricular ectopy, asymptomatic No atrial fibrillation or atrial arrhythmias Patient tolerating metoprolol would continue (2) Fracture of left hip: Recovering from recent surgery as per orthopedics Patient anticipates transfer to [facility] agree with plan, stable from cardiac standpoint (3) COPD, mild: History reviewed echocardiogram suggest mild elevation pulmonary pressures consistent with history Chronic obstructive lung disease (4) Elevated troponin: As noted above no EKG changes, echocardiogram normal wall motion symptoms atypical suspect elevated troponin reflects noncardiac source. Subjective Patient seen and examined chart medications telemetry reviewed. Clinically looks improved today sitting out of bed in chair notes no dizziness or lightest. Notes left leg is functioning better. Notes no chest pain or shortness of breath Physical Exam 2 Vital Signs (Past 24 Hours): Last Vital Signs Temp 36.8 C 10/11/18 11:26 Pulse 87 10/11/18 11:26 Resp 18 10/11/18 11:26 BP 120/71 10/11/18 11:26 Pulse Ox 95 10/11/18 11:26 Constitutional: no acute distress ENMT: external ear and nose normal, oropharynx normal Neck: normal visual inspection and trachea midline Respiratory: normal respiratory effort, lungs clear to auscultation Cardiovascular: Rate/Rhythm: regular rate and regular rhythm Heart Sounds: normal S1 and normal S2; no gallop and no murmur Palpation: normal PMI Vessels: normal carotid upstroke; no carotid bruit and no abdominal aortic bruit Extremities: no pedal edema Chest (Breasts): Chest: normal inspection of chest (Nontender to palpate) Gastrointestinal (Abdomen): Inspection/Auscultation: + hypoactive bowel sounds Percussion/Palpation: + abdomen tender (Mild) and abdomen soft; no hepatosplenomegaly and no abdominal aortic enlargement _ (1) Fracture of left hip Encounter type: initial encounter Fracture healing: Fracture type: closed Open fracture type: Qualified Code(s): S72.002A - Fracture of unspecified part of neck of left femur, initial encounter for closed fracture
--- NOTE | 2018-10-11 12:26 | Hospitalist Progress Note ---
Date of Service October 11, 2018 Assessment & Plan (1) Fracture of left hip: Secondary to mechanical fall Status post surgery, POD #2 Appreciate 1 or 3 input and recommendation Complains to have some pain otherwise stable Complains to have problem with moving left lower extremity Continue physical therapy-doing well with physical therapy We will transfer to rehab today (2) Fall: Mechanical fall May be complicated by multiple sclerosis and leg weakness We will get PT OT evaluation Likely to need placement Advised to take precaution to avoid fall (3) Multiple sclerosis: Neuro status at baseline Complains weakness involving the left lower extremity May be secondary to multiple sclerosis flare We will continue with physical therapy and monitor Continues to have left lower extremity weakness and tingling MRI of the brain with and without contrast did not show any evidence of multiple sclerosis flare Appreciate neurology input and recommendation Continue physical therapy and likely to be discharged tomorrow MRI with and without contrast did not show any evidence of MS flare Cleared by neurologist Will be discharged today (4) Hypothyroidism: Continue levothyroxine (5) COPD, mild: - admits non adherence to Advair found to have hypoxia in the ER but asymptomatic improved with 2 L NC -- consulted Pulm -- Continue Advair inhaler. Albuterol, Duonebs as needed No acute symptoms of COPD (6) Insomnia: Takes two 1mg lorazepam each night at home DVT Ppx: Lovenox Code status: FULL per discussion with patient PCP: Henry Dispo: anticipate d/c to Rehab/SNF when medically stable (7) Atypical chest pain: Chest pain overnight 10/07, trop 0.1-> 0.1, EKG no ischemia Cardiology consulte-appreciate input and recommendation Metoprolol recommended, held due of episode of dizziness, orthostatic hypotension Appreciate cardiology input and recommendation Heart rates remained stable We will continue with beta-terence smaller doses as advised by wall taper Subjective This is a 73-year-old female with a past medical history of multiple sclerosis, osteoporosis, hypothyroidism, mild COPD, insomnia and other medical problems listed below who presents after a mechanical fall at home this afternoon and was found to have a subcapital mildly displaced left femoral neck fracture. 10/09 The patient was seen and examined in medical floor in presence of the family members Complains to have constipation Also has left leg weakness Denies any other symptoms 10/10 Complains that she cannot move her left lower extremity She denies pain has been the limiting factor Also has numbness involving the extremities She has MS and is to rule out any flare up 10/11 Patient was seen and examined in telemetry medical unit Out of bed in a chair And move the left lower extremity MRI of the head is negative and cleared from neuro No flare of MS Physical Exam 2 Vital Signs (Past 24 Hours): Last Vital Signs Temp 36.8 C 10/11/18 11:26 Pulse 87 10/11/18 11:26 Resp 18 10/11/18 11:26 BP 120/71 10/11/18 11:26 Pulse Ox 95 10/11/18 11:26 Constitutional: not obese ENMT: external ear and nose normal, oropharynx normal Mouth: + edentulous Mallampati Class: II Neck: normal visual inspection and trachea midline; neck extension not limited Respiratory: normal respiratory effort, lungs clear to auscultation normal respiratory effort Auscultation: lungs clear to auscultation bilaterally Cardiovascular: Rate/Rhythm: regular rate and regular rhythm Heart Sounds: normal S1 and normal S2; no gallop and no murmur Palpation: normal PMI Vessels: normal carotid upstroke; no carotid bruit and no abdominal aortic bruit Extremities: no pedal edema Chest (Breasts): Chest: normal inspection of chest (Nontender to palpate) Gastrointestinal (Abdomen): Inspection/Auscultation: + hypoactive bowel sounds Percussion/Palpation: + abdomen tender (Mild) and abdomen soft; no hepatosplenomegaly and no abdominal aortic enlargement Musculoskeletal: Spine: + limited cervical ROM Neurologic: moves all extremities (Can move left lower extremity. status post ORIF left hip) Motor/Sensory: + sensory deficit (RUE > LUE) Psychiatric: Orientation: alert and oriented x 3 Results & Data Medications Administered Current Inpatient Medications Acetaminophen (Tylenol) 650 mg PO Q4H PRN PRN Reason: pain/fever Stop: 11/06/18 00:16 Last Admin: 10/09/18 23:27 Dose: 650 mg Bisacodyl (Dulcolax) 10 mg [place] DAILY PRN PRN Reason: Constipation Stop: 11/06/18 00:16 Last Admin: 10/09/18 12:38 Dose: 10 mg Enoxaparin Sodium (Lovenox) 40 mg SQ Q24H LALO Stop: 11/06/18 16:59 Last Admin: 10/10/18 16:47 Dose: 40 mg Gadobutrol (Gadavist 65ml) 6.5 ml IV ONCE PRN PRN Reason: Interaction Checking Stop: 10/14/18 13:20 Last Admin: 10/10/18 13:22 Dose: 6.5 ml Lorazepam (Ativan) 0.25 mg in 0.5 mls @ 0.5 mls/min IV Q4H PRN PRN Reason: Anxiety/Agitation Stop: 11/06/18 00:16 Prochlorperazine 5 mg/ Syringe 5 mls @ 5 mls/min IV Q6H PRN PRN Reason: Nausea And Vomiting Stop: 11/06/18 00:16 Sodium Chloride (Nss 1000ml) 1,000 mls @ 80 mls/hr IV .[id number] [facility] Stop: 11/07/18 11:14 Last Admin: 10/11/18 03:24 Dose: 80 mls/hr Ioversol (Optiray 320 125ml) 125 ml IV ONCE PRN PRN Reason: Interaction Checking Stop: 10/12/18 01:17 Last Admin: 10/08/18 01:18 Dose: 99 ml Ipratropium Bowie (Atrovent 0.02% 0.5mg/2.5ml) 0.5 mg INH Q4H PRN PRN Reason: WHEEZING/SOB Stop: 11/05/18 22:44 Last Admin: 10/07/18 06:59 Dose: 0.5 mg Levalbuterol HCl (Xopenex 1.25mg/0.5ml Neb) 1.25 mg INH Q4H PRN PRN Reason: WHEEZING/SOB Stop: 11/05/18 22:44 Last Admin: 10/07/18 06:59 Dose: 1.25 mg Levothyroxine Sodium (Synthroid) 88 mcg PO DAILYBB LALO Stop: 11/06/18 06:29 Last Admin: 10/11/18 05:56 Dose: 88 mcg Lorazepam (Ativan) 0.5 mg PO HS PRN PRN Reason: Insomnia Stop: 11/06/18 00:16 Last Admin: 10/07/18 22:01 Dose: 0.5 mg Magnesium Hydroxide (Milk Of Magnesia) 30 ml PO DAILY PRN PRN Reason: Constipation Stop: 11/06/18 00:16 Metoprolol Tartrate (Lopressor) 12.5 mg PO BID LALO Stop: 11/09/18 10:59 Last Admin: 10/11/18 09:18 Dose: 12.5 mg Morphine Sulfate (Morphine Sulfate) 2 mg IV Q4H PRN PRN Reason: Moderate Pain (Rating 3,4,5,6) Stop: 10/20/18 20:14 Naloxone HCl (Narcan) 0.1 mg IV UD PRN PRN Reason: opiate overdose Stop: 11/06/18 00:16 Naloxone HCl (Narcan) 0.1 mg IV UD PRN PRN Reason: Opioid Overdose Stop: 11/06/18 16:33 Nitroglycerin (Nitrostat) 0.4 mg SL PRN PRN PRN Reason: Chest Pain Stop: 11/07/18 01:47 Polyethylene Glycol (Miralax Powder Packet) 17 gm PO BID PRN PRN Reason: CONSTIPATION Stop: 11/06/18 08:59 Last Admin: 10/09/18 12:38 Dose: 17 gm Fluticasone/Salmeterol (Advair Diskus 250/50) 1 puffs INH BID [facility] Stop: 11/06/18 08:59 Last Admin: 10/11/18 09:18 Dose: 1 puffs Sodium Biphosphate/Sodium Phosphate (Fleet Enema) 132 ml [place] DAILY PRN PRN Reason: Constipation Stop: 11/06/18 00:16 Tramadol HCl (Ultram) 50 mg PO Q6H PRN PRN Reason: Pain Stop: 11/06/18 00:16 Last Admin: 10/10/18 21:06 Dose: 50 mg _ (1) Fracture of left hip Encounter type: initial encounter Fracture healing: Fracture type: closed Open fracture type: Qualified Code(s): S72.002A - Fracture of unspecified part of neck of left femur, initial encounter for closed fracture (2) Fall Encounter type: initial encounter Qualified Code(s): W19.XXXA - Unspecified fall, initial encounter
--- NOTE | 2018-10-12 08:03 | Discharge Summary ---
Date of Service October 12, 2018 Admission HPI Per Admitting Provider This is a 73-year-old female with a past medical history of multiple sclerosis, osteoporosis, hypothyroidism, mild COPD, insomnia and other medical problems listed below who presents after a mechanical fall at home this afternoon. Patient's son was helping her out the door when the family dog knocked her legs out from under her, causing her to fall to the her left side. Denies any head trauma or loss of consciousness. Son states that he caught her before she hit the ground. Patient is endorsing left hip pain that is a 7/10. Denies any new numbness or tingling distal to fracture. Has history of MS and follows with Dr. Phoenix in clinic. Is not currently taking any medication and is able to ambulate without assistive devices. Does have chronic motor and sensory deficits in bilateral hands that are slight (R>L). Had history of a right femur fracture after a mechanical fall in 2014 with a surgical repair done by the [facility] in 2014. Denies any history of heart disease or DVT/PE. Underwent an echo in May 2018 that showed normal LV systolic function with estimated EF of 60%, no wall motion abnormality of left ventricle, grade 1 diastolic dysfunction and aortic valve sclerosis. Denies any fever, chills, lightheadedness, headache, chest pain, palpitations, shortness of breath, abdominal pain, nausea, vomiting, dysuria, diarrhea or constipation. Admission Exam Per Admitting Provider Vital Signs (Past 24 Hours): Last Vital Signs Temp 36.5 C 10/06/18 19:55 Pulse 92 H 10/06/18 19:55 Resp 22 10/06/18 19:55 BP 149/88 H 10/06/18 19:55 Pulse Ox 93 10/06/18 19:55 Physical Exam: General Appearance: WD/WN, no apparent distress, resting comfortably Head: normocephalic, atraumatic Eyes: normal inspection, PERRL, EOMI ENT: hearing grossly normal, pharynx normal (moist mucous membranes) Neck: supple, no JVD, no adenopathy Respiratory/Chest: lungs clear to auscultation. No wheezes, rales or rhonci. No respiratory distress or accessory muscle use Cardiovascular: regular rate, rhythm, systolic murmur, normal peripheral pulses Abdomen/GI: normal bowel sounds, soft, non-tender to palpation Extremities/Musculoskelatal: + Left hip with tenderness to palpation, and pain with movement. Distal pulses intact. No calf tenderness, normal capillary refill, no pedal edema Neurologic/Psych: alert, normal mood/affect, oriented x 3 Skin: normal color, warm/dry Principal Diagnosis Left hip fracture status post ORIF, atypical chest pain-no ACS, multiple sclerosis-stable Discharge Exam Constitutional not obese ENMT external ear and nose normal, oropharynx normal Mouth: + edentulous Mallampati Class: II Neck normal visual inspection and trachea midline; neck extension not limited Respiratory normal respiratory effort, lungs clear to auscultation normal respiratory effort Auscultation: lungs clear to auscultation bilaterally Cardiovascular Rate/Rhythm: regular rate and regular rhythm Heart Sounds: normal S1 and normal S2; no gallop and no murmur Palpation: normal PMI Vessels: normal carotid upstroke; no carotid bruit and no abdominal aortic bruit Extremities: no pedal edema Chest (Breasts) Chest: normal inspection of chest (Nontender to palpate) Gastrointestinal (Abdomen) Inspection/Auscultation: + hypoactive bowel sounds Percussion/Palpation: + abdomen tender (Mild) and abdomen soft; no hepatosplenomegaly and no abdominal aortic enlargement Musculoskeletal Spine: + limited cervical ROM Neurologic moves all extremities (Can move left lower extremity. status post ORIF left hip) Motor/Sensory: + sensory deficit (RUE > LUE) Psychiatric Orientation: alert and oriented x 3 Discharge Data Allergies Allergy/AdvReac Type Severity Reaction Status Date / Time No Known Allergies Allergy Unknown Verified 10/06/18 20:25 Consultations 10/06/18 20:16 Consult Case Management - Discharge Planning Routine 10/06/18 21:21 ED Decision to Admit Stat 10/07/18 00:17 Consult Case Management - Discharge Planning Routine Consult Case Management - Discharge Planning Routine Consult Orthopedic Surgery Routine 10/07/18 08:22 Consult Pulmonology Routine 10/07/18 16:34 Consult Case Management - Discharge Planning Routine 10/08/18 01:48 Consult Cardiology Routine 10/10/18 11:03 Consult Neurology Routine Procedures Performed Operation Date: 10/07/18 11:00 Actual Procedures p Total Hip Arthroplasty Cemented Anterior, Left(Left) - Rosalino Hutchison DO Ordered Studies 10/07/18 09:31 FL pelvis 1-2V Routine 10/08/18 00:14 CT angio chest PE protocol Urgent 10/10/18 11:00 MR brain MS wo/w con Urgent Hospital Course (1) Fracture of left hip: Secondary to mechanical fall Status post surgery, POD #2 Appreciate 1 or 3 input and recommendation Complains to have some pain otherwise stable Complains to have problem with moving left lower extremity Continue physical therapy-doing well with physical therapy We will transfer to rehab today (2) Fall: Mechanical fall May be complicated by multiple sclerosis and leg weakness We will get PT OT evaluation Likely to need placement Advised to take precaution to avoid fall (3) Multiple sclerosis: Neuro status at baseline Complains weakness involving the left lower extremity May be secondary to multiple sclerosis flare We will continue with physical therapy and monitor Continues to have left lower extremity weakness and tingling MRI of the brain with and without contrast did not show any evidence of multiple sclerosis flare Appreciate neurology input and recommendation Continue physical therapy and likely to be discharged tomorrow MRI with and without contrast did not show any evidence of MS flare Cleared by neurologist Will be discharged today (4) Hypothyroidism: Continue levothyroxine (5) COPD, mild: - admits non adherence to Advair found to have hypoxia in the ER but asymptomatic improved with 2 L NC -- consulted Pulm -- Continue Advair inhaler. Albuterol, Duonebs as needed No acute symptoms of COPD (6) Insomnia: Takes two 1mg lorazepam each night at home DVT Ppx: Lovenox Code status: FULL per discussion with patient PCP: Figueroa Dispo: anticipate d/c to Rehab/SNF when medically stable (7) Atypical chest pain: Chest pain overnight 10/07, trop 0.1-> 0.1, EKG no ischemia Cardiology consulte-appreciate input and recommendation Metoprolol recommended, held due of episode of dizziness, orthostatic hypotension Appreciate cardiology input and recommendation Heart rates remained stable We will continue with beta-terence smaller doses as advised by copper tapper Total Time Total Time Spent Total Time Spent (In Minutes): 40 minutes Total Time Includes: Examination of the Patient, Discharge Planning, Medication Reconciliation and Communication With Other Providers Discharge Plan Discharge Items Patient Disposition: Transfer Inpatient Rehab Fac Reason For Visit: L HIP FX Discharge Diagnosis: Left hip fracture status post ORIF, atypical chest pain-no ACS, multiple sclerosis-stable Condition: Fair Discharge Goals: Decrease discomfort, Improve disease control and Improve function Activity: Resume your previous activity Non-emergency contact: Primary Care Provider Call non-emergency contact if: you have any medication questions and your symptoms worsen Follow-up/Referrals: Cassy Figueroa MD [Primary Care Provider] - (Please make an appointment with primary care physician in about 1 week. Ortho appointment as scheduled) Diet: Regular Addtl Provider Instructions: ORTHOPEDIC INSTRUCTIONS Hip Hemiarthroplasty Activity and Therapy Recommendations: 1. You were shown a series of exercises in the hospital. Do these exercises three times each day if you are able. 2. Get up and walk several times each day if you are capable. Make sure you have assistance is needed. For the first four weeks, try not to stand or walk for more than one hour at a time. If you do stand or walk for more than one hour, you will not hurt anything, but your leg will likely swell. 3. As you feel comfortable, you may change from the walker or crutches to a cane and then to independent walking if you are able. Please be safe. Medications: 1. Narcotic You will likely be sent from the hospital with the narcotic pain medication that worked best throughout your stay. 2. Lovenox You will be required to take Lovenox 40 mg daily for 4 weeks after surgery to prevent blood clots. 3. Other medications may be given for specific circumstances. If you have any questions, please call the office at [phone]. 4. Resume previous home medications unless otherwise instructed TEDs/Elastic Stockings: The white elastic stockings help limit swelling and prevent blood clots from forming in your legs. The more you wear them, the more they work. Wear them for six weeks. Dressing Care: You will likely have a purple VAC dressing after surgery. This dressing will keep the incision dry and promote early healing. After about 8 days the batteries will wear out and the VAC will lose suction. Simply remove the dressing at that time and throw everything away, including the small suction machine. Then, you may leave the violette open to air or cover them with a dry dressing so they do not rub on your pants. The violette will be removed at your 2 week follow-up appointment. Showering: You may shower immediately with the purple VAC dressing. Let the shower spray hit your opposite side and slowly pat the plastic dry. Do not soak the dressing. After the dressing is removed you may shower normally with the violette exposed. Let soapy water run over the violette and pat them dry. Things To Watch For: 1. Drainage from the incision site that occurs more than one week after your surgery. 2. Increased redness at the incision site. 3. Fever above 102 degrees Fahrenheit. 4. Unusual chest pain or shortness of breath. 5. Call [facility] at with any of the above problems Follow-Up Visit: Follow-up with Dr. Hutchison 2 weeks after your day of surgery. Please call to make an appointment or be sure your rehab facility has made one. If you have any questions call Prescriptions: New enoxaparin 40 mg/0.4 mL Syringe 40 mg subcut Q24H 30 Days Qty: 30 RF: 0 tramadol 50 mg Tablet 50 mg PO Q6H PRN (Reason: pain) 7 Days Qty: 20 RF: 0 metoprolol tartrate 25 mg Tablet 12.5 mg PO BID 30 Days Qty: 30 RF: 0 Continue ipratropium-albuterol 0.5 mg-3 mg(2.5 mg base)/3 mL Solution For Nebulization 3 ml INHALATION Q4 PRN (Reason: Shortness Of Breath Or Wheezing) RF: 0 levothyroxine 88 mcg Tablet 88 mcg PO DAILY RF: 0 polyethylene glycol 3350 [Miralax] 17 gram/dose Powder 17 g PO BID PRN (Reason: Constipation) RF: 0 vitamins A,C,Z-wzho-hxieqd [PreserVision AREDS] 7,160-113-100 sjvi-[id number] Tablet 1 tab PO DAILY RF: 0 fluticasone-salmeterol [Advair Diskus] 250-50 mcg/dose Blister With Device 1 puff Inhalation BID PRN (Reason: Shortness Of Breath Or Wheezing) RF: 0 lorazepam [Ativan] 1 mg Tablet 2 mg PO HS PRN (Reason: Insomnia) RF: 0 albuterol sulfate [Ventolin HFA] 90 mcg/actuation Hfa Aerosol Inhaler 2 puff INHALATION QID PRN (Reason: Shortness Of Breath Or Wheezing) RF: 0 zoledronic tlcy-rcpcskvy-qggpo [Reclast] 5 mg/100 mL Piggyback 5 mg IV UD RF: 0 omega 7-qzw-tvl-fish oil 1,000 mg (120 mg-180 mg) Capsule 1 cap PO DAILY RF: 0 Stand-Alone Forms: [facility] Discharge Orders: Discharge Order (Routine); Ordered 10/11/18 Ordered By: Delvis Navarro Skilled Items Patient informed of condition?: Yes DNR: No Discharge Level of Care: Skilled Communicable Disease: No Discharge Prognosis: Stable Admission Data Admit Date/Time: 10/06/18 22:40 Attending Provider: Delvis Navarro Admit Provider: Favio Colon Primary Care Provider: Cassy Figueroa Other Providers: Favio Colon ; Timothy Corrales ; Christiano Blackburn ; Sg Johnson ; Gemma Betts ; Joseph Klein ; Maricarmen Bynum ; Favio Monterroso ; Desirae Sapp ; Marah Beal ; Desirae Fitzpatrick ; Elizabeth Godwin ; Greg Nieves ; Eddi Goodman ; Greg Villasenor ; Antolin Padilla ; Jimenez Grimaldo ; Joel Kraft ; Michael Meza ; Bonilla Crowley ; Lauren Voss ; Lore Schmidt ; Feliciano Green ; Timothy Phoenix Service: Medical Other Interventions: Discharge Summary Assessment (RN) Last Done: 10/11/18 14:15 DC Date/Time DO NOT enter until pt leaves facility: 10/11/18 16:15
== END 2018-10-11 16:15 | DRG 470 ==
LOC: ED 20:05 → SUATTDRO 22:40 → 3W 22:40 → 2W 10-08 01:23

== ENCOUNTER 2023-06-04 10:27 | Inpatient (IN) ==
--- NOTE | 2023-06-04 10:31 | Emergency Department Note ---
History of Present Illness General Chief complaint: Stroke Alert Source: patient, family, EMS, RN notes reviewed and old records reviewed Mode of arrival: EMS Limitations: altered mental status History of Present Illness This patient 78-year-old female who is brought in by EMS after having altered mental status and weakness of her right arm and possibly the right side. She seemed a little off this morning but then between 9 and 930 became unresponsive while seen at the table. Being a concern for possible stroke the paramedics calling ahead of time and told me that she is weak in her right arm and will not talk but does respond. Note there is but no seizure activity she is on no blood thinners blood sugars 106 she does have a history of MS she had a ground-level fall yesterday but not did not hit her head on route her blood pressure was 134 systolic with a pulse of 67. Family arrived and told me that she fell yesterday they do not think she passed out or injured herself. They said she was acting off last evening little bit and seemed weak but was okay this morning when she woke up but then this happened. Home Medications Medication Instructions Recorded Confirmed Type albuterol sulfate 90 mcg/actuation 2 puff inhalation QID PRN 10/06/18 06/04/23 History aerosol inhaler (Ventolin HFA) Shortness Of Breath Or Wheezing ipratropium 0.5 mg-albuterol 3 mg 3 ml inhalation Q4 PRN Shortness 10/06/18 06/04/23 History (2.5 mg base)/3 mL nebulization Of Breath Or Wheezing soln lorazepam 1 mg tablet (Ativan) 1 mg PO HS PRN Insomnia 10/06/18 06/04/23 History vitamins A,C,U-cquh-uswgew 2,148 1 tab PO DAILY 10/06/18 06/04/23 History mcg-113 mg-45 mg-17.4 mg tablet (PreserVision AREDS) aspirin 81 mg tablet,delayed 81 mg PO DAILY 06/04/23 06/04/23 History release cholecalciferol (vitamin D3) 125 125 mcg PO DAILY 06/04/23 06/04/23 History mcg (5,000 unit) tablet (Vitamin D3) cyanocobalamin (vitamin B-12) 1,000 mcg PO DAILY 06/04/23 06/04/23 History 1,000 mcg tablet fluticasone propionate 50 2 spray intranasal HS 06/04/23 06/04/23 History mcg/actuation nasal spray,suspension levothyroxine 112 mcg tablet 112 mcg PO DAILY 06/04/23 06/04/23 History loratadine 10 mg tablet 10 mg PO DAILY 06/04/23 06/04/23 History mometasone-formoterol HFA 200 2 puff inhalation AMPM 06/04/23 06/04/23 History mcg-5 mcg/actuation aerosol inhaler (Dulera) pregabalin 100 mg capsule 100 mg PO BID 06/04/23 06/04/23 History solifenacin 5 mg tablet 5 mg PO DAILY 06/04/23 06/04/23 History zoledronic acid 5 mg/100 mL in 1 ea IV UD 06/04/23 06/04/23 History mannitol 5 %-water intravenous piggybck Allergies Allergy/AdvReac Type Severity Reaction Status Date / Time No Known Allergies Allergy Unknown Verified 03/31/20 15:38 Past Med/Surg History Medical History (Updated 06/04/23 @ 14:39 by RERE Mendoza) Attic perforation of tympanic membrane, left ear Cervical spondylosis with myelopathy COPD, mild Hypothyroidism Insomnia Osteoporosis Status post closed fracture of right femur Surgical History H/O cervical spine surgery History of hysterectomy History of left hip hemiarthroplasty Family History Father Heart disease Sister Breast cancer Social History Smoking Status: Never smoker Hx Alcohol Use: No Hx Substance Use: No Preferred Language: Setswana Communication Ability: Effective Visual Impairment: No Limitations Retarder Operator Required: No Beliefs That Will Affect Care: None Current Living Situation: Spouse Other Information That Helps Us Care for You: No Feels Safe at Home: Yes Safety Concerns: Feels Safe At This Time Assistive Devices: Oxygen - Continuous and Walker Review of Systems A total of 10 systems reviewed and were otherwise negative Physical Exam Vital Signs Vital Signs - 24 hr 06/04/23 10:27 06/04/23 10:27 06/04/23 10:48 Temperature 36.7 C Temperature Source Oral Pulse Rate 74 67 Pulse Rate from SpO2 Sensor Respiratory Rate 20 20 Blood Pressure 157/68 H Blood Pressure Mean 97 Blood Pressure Position Sitting Pulse Oximetry 92 Oxygen Delivery Method Room Air Room Air Sepsis Recent Fever Within 48 Hours No Sepsis New/Unexplained Change in Mental Status No Sepsis Action Taken by Nursing No Action Required 06/04/23 10:50 06/04/23 11:00 06/04/23 11:02 Temperature Temperature Source Pulse Rate 71 71 Pulse Rate from SpO2 Sensor 69 70 Respiratory Rate 22 20 Blood Pressure 166/72 H Blood Pressure Mean 103 Blood Pressure Position Pulse Oximetry 91 92 Oxygen Delivery Method Sepsis Recent Fever Within 48 Hours Sepsis New/Unexplained Change in Mental Status Sepsis Action Taken by Nursing 06/04/23 11:02 06/04/23 11:23 06/04/23 11:10 Temperature Temperature Source Pulse Rate 73 77 73 Pulse Rate from SpO2 Sensor 72 72 Respiratory Rate 24 23 Blood Pressure Blood Pressure Mean Blood Pressure Position Pulse Oximetry 92 91 Oxygen Delivery Method Sepsis Recent Fever Within 48 Hours Sepsis New/Unexplained Change in Mental Status Sepsis Action Taken by Nursing 06/04/23 11:15 06/04/23 11:15 06/04/23 11:20 Temperature Temperature Source Pulse Rate 71 68 Pulse Rate from SpO2 Sensor 71 66 Respiratory Rate 22 21 Blood Pressure 169/82 H Blood Pressure Mean 111 Blood Pressure Position Pulse Oximetry 92 92 Oxygen Delivery Method Sepsis Recent Fever Within 48 Hours Sepsis New/Unexplained Change in Mental Status Sepsis Action Taken by Nursing General: Well developed well nourished older female who is awake and talking and answering questions appropriately but quietly in no acute distress, breathing comfortably on room air. Normal speech. Alert and orient x3 HEENT: Normal cephalic atraumatic. Pupils are equal round and reactive to light. Extraocular movements are intact. Oropharynx is pink with moist mucous membranes. No swelling of the mouth lips or tongue. Neck: Supple with a midline trachea. No meningeal signs or stiffness, no JVD or bruits. No Stridor. Chest: Clear to auscultation bilaterally. No wheezes or rhonchi. No increased work of breathing. Heart: Regular rate and rhythm without murmurs or gallops. Abdomen: Soft nontender, nondistended without rebound guarding or rigidity. Extremities: No cyanosis clubbing or edema. No calf tenderness or assymetry Spine/Back. Non tender to palpation. No CVA tenderness Skin: Good turgor without rashes. Neurologic exam: Cranial nerves two through 12 are intact. No facial asymmetry or droop. The right arm and hand is moving but is weaker than the left. This is a significant improvement from where she was earlier apparently Course Administered Medications Discontinued Medications Aspirin (Aspirin 81 Mg Chew) 324 mg PO NOW STA Stop: 06/04/23 11:15 Last Admin: 06/04/23 11:22 Dose: 324 mg Documented By: ML Sodium Chloride (Nss 1000ml) 1,000 mls @ 75 mls/hr IV .[id number] LALO Stop: 07/04/23 11:14 Last Infusion: 06/04/23 14:34 Dose: 0 mls/hr Documented By: KEBarney Admin: 06/04/23 11:41 Dose: 75 mls/hr Documented By: ML Sodium Chloride (Nss 1000ml) 500 mls @ 999 mls/hr IV .Q31M ONE Stop: 06/04/23 11:43 Last Infusion: 06/04/23 13:12 Dose: 0 mls/hr Documented By: Admin: 06/04/23 11:22 Dose: 999 mls/hr Documented By: ML Ioversol (Ioversol 350 Mg 125ml Prefilled Syringe) 115 ml IV ONCE ONE Stop: 06/04/23 10:41 Last Admin: 06/04/23 10:40 Dose: 115 ml Documented By: MENDY Critical Care Time Critical Care Time: Yes Total Critical Care Time: 35 Due to the patient's acute neurologic symptoms, need for expedited care due to the possibility of thrombolytics, consultation with neurology discussion with the family and frequent reassessment and treatments, I have personally spent greater than 35 minutes of critical care time in the direct management of this patient. This includes bedside care, interpretation of diagnostic studies, and testing, discussion with consultants, patient, and family members, and other required patient management activities. This 35 minutes is in excess of all separately billable procedures. Medical Decision Making Differential Diagnosis Stroke, intracranial hemorrhage, seizure, sepsis, arrhythmia, infection, electrolyte or metabolic abnormality, MS exacerbation, trauma Medical Records Attestation: I reviewed the patient's medical records. Home Medications Current Medication List: was personally reviewed by me Laboratory Data Attestation: I reviewed the patient's lab results. 06/04/23 10:37 06/04/23 10:37 Lab Results 06/04/23 06/04/23 06/04/23 Range/Units 10:37 10:37 10:37 WBC 5.71 (4.8-10.8) K/ul RBC 4.73 (4.20-5.40) M/uL Hgb 13.7 (12.0-16.0) g/dl Hct 42.3 (37.0-47.0) % MCV 89.4 (80.0-100.0) fL MCH 29.0 (25.0-34.0) pg MCHC 32.4 (32.0-36.0) g/dL RDW Std Deviation 45.6 (36.4-46.3) fL RDW Coeff of Jose A 14.0 (11.5-14.5) % Plt Count 188 (130-400) K/uL MPV 10.2 (9.4-12.4) fL Immature Gran % (Auto) 0.4 % Neut % (Auto) 62.7 % Lymph % (Auto) 24.9 % Mckenzie % (Auto) 8.8 % Eos % (Auto) 2.3 % Baso % (Auto) 0.9 % Neut # (Auto) 3.59 (1.40-6.50) K/uL Lymph # (Auto) 1.42 (1.2-3.4) K/uL Mckenzie # (Auto) 0.50 (0.11-0.59) K/uL Eos # (Auto) 0.13 (0-0.50) K/uL Baso # (Auto) 0.05 (0-0.2) K/uL Immature Gran # (Auto) 0.02 (0.01-0.20) K/uL PT 11.9 (9.0-12.0) Seconds INR 1.1 (0.9-1.1) APTT 26.1 (21.0-31.0) Seconds PTT Ratio 0.9 Sodium (136-145) mmol/L Potassium (3.5-5.1) mmol/L Chloride (98-107) mmol/L Carbon Dioxide (21-32) mmol/L Anion Gap (3-11) BUN (6-23) mg/dl Creatinine (0.6-1.2) mg/dl Est Cr Clr Drug Dosing Est GFR ( Amer) ml/min Est GFR (Non-Af Amer) ml/min BUN/Creatinine Ratio (10-20) Glucose (70-99(Fasting)) mg/dl Calcium (8.6-10.3) mg/dl Magnesium (1.7-2.4) mg/dl Total Bilirubin (0.2-1.0) mg/dl AST (13-39) U/L ALT (7-52) U/L Alkaline Phosphatase (34-104) U/L Troponin I High Sens (0-14) pg/ml Total Protein (6.0-8.3) gm/dl Albumin (3.4-5.0) gm/dl Globulin (2.5-4.0) gm/dl Albumin/Globulin Ratio (0.9-2) Blood Type O Positive Antibody Screen NEGATIVE 06/04/23 Range/Units 10:37 WBC (4.8-10.8) K/ul RBC (4.20-5.40) M/uL Hgb (12.0-16.0) g/dl Hct (37.0-47.0) % MCV (80.0-100.0) fL MCH (25.0-34.0) pg MCHC (32.0-36.0) g/dL RDW Std Deviation (36.4-46.3) fL RDW Coeff of Jose A (11.5-14.5) % Plt Count (130-400) K/uL MPV (9.4-12.4) fL Immature Gran % (Auto) % Neut % (Auto) % Lymph % (Auto) % Mckenzie % (Auto) % Eos % (Auto) % Baso % (Auto) % Neut # (Auto) (1.40-6.50) K/uL Lymph # (Auto) (1.2-3.4) K/uL Mckenzie # (Auto) (0.11-0.59) K/uL Eos # (Auto) (0-0.50) K/uL Baso # (Auto) (0-0.2) K/uL Immature Gran # (Auto) (0.01-0.20) K/uL PT (9.0-12.0) Seconds INR (0.9-1.1) APTT (21.0-31.0) Seconds PTT Ratio Sodium 137 (136-145) mmol/L Potassium 3.9 (3.5-5.1) mmol/L Chloride 103 (98-107) mmol/L Carbon Dioxide 31 (21-32) mmol/L Anion Gap 3 (3-11) BUN 19 (6-23) mg/dl Creatinine 0.64 (0.6-1.2) mg/dl Est Cr Clr Drug Dosing Not Reportable Est GFR ( Amer) 97.7 ml/min Est GFR (Non-Af Amer) 84.3 ml/min BUN/Creatinine Ratio 29.7 H (10-20) Glucose 99 (70-99(Fasting)) mg/dl Calcium 8.1 L (8.6-10.3) mg/dl Magnesium 1.7 (1.7-2.4) mg/dl Total Bilirubin 0.5 (0.2-1.0) mg/dl AST 16 (13-39) U/L ALT 10 (7-52) U/L Alkaline Phosphatase 45 (34-104) U/L Troponin I High Sens 3.6 (0-14) pg/ml Total Protein 5.4 L (6.0-8.3) gm/dl Albumin 3.1 L (3.4-5.0) gm/dl Globulin 2.3 L (2.5-4.0) gm/dl Albumin/Globulin Ratio 1.3 (0.9-2) Blood Type Antibody Screen Imaging Data Attestation: I personally reviewed and interpreted this imaging study as follows: My Impression: CT of the head-no hemorrhage or mass effect seen Radiologist's Impression: Head CT 06/04/23 10:[address] DOSE: HISTORY: neuro deficit, acute stroke suspected TECHNIQUE: Multiaxial CT images of the head were performed without the use of intravenous contrast. Automated exposure control was utilized for this study. A dose lowering technique was utilized adhering to the principles of ALARA. Comparison: Brain MRI 10/10/2018. Findings: The paranasal sinuses and right mastoid air cells are clear. There is a chronic left mastoid effusion, unchanged. The calvarium and skull base are intact. There is no mass, hematoma, midline shift, acute infarct. White matter hypodensity is nonspecific but suggestive of microvascular ischemic change. The ventricles and sulci demonstrate mild age-related involutional changes. Mild motion artifact. Old punctate lacunar infarct seen within the left cerebellar hemisphere and an old small infarct within the right basal ganglia. Impression: No acute intracranial abnormality. Atrophy and microvascular ischemic changes. ACT 112: Negative or not required by law. Electronically signed by: Desmond Baez M.D. 06/04/2023 11:01 AM Head CTA 06/04/23 10:20 HEAD & NECK CTA HISTORY: neuro deficit, acute stroke suspected TECHNIQUE: Multiaxial CT images of the head were performed following the intravenous administration of contrast to evaluate the major cerebral vessels. Multiaxial CT images of the neck were also performed following the intravenous administration of contrast to evaluate the major cervical vessels. 3D/MIP images were also obtained. Sagittal and coronal reformats were reviewed. A dose lowering technique was utilized adhering to the principles of ALARA. COMPARISON: Head CT 06/04/2023. FINDINGS: There is a hypoplastic right vertebral artery which terminates into the posterior inferior cerebellar artery. There is a focal area of severe stenosis at the junction of the distal right vertebral artery/posterior inferior cerebellar artery. This seen on image 78. Otherwise, the remaining right posterior inferior cerebellar artery is patent. The distal left vertebral artery and basilar artery are widely patent. There is a hypoplastic right P1 segment. Multifocal areas of high-grade stenosis as well as a focal area of short segment occlusion within the proximal to mid right RADIATION CONTROL TECHNICIAN. This is best seen image 128. The distal right RADIATION CONTROL TECHNICIAN branches are patent. Mild calcified plaque within the bilateral carotid siphons. The visualized intracranial internal carotid arteries appear patent. Mild focal stenosis within the proximal left RADIATION CONTROL TECHNICIAN. The bilateral MCAs and right MIREYA showed no significant stenosis, occlusion, or aneurysm. Focal vascular cut off within the mid left MIREYA best seen on image 107. There is faint visualization of the distal left MIREYA branches. The major dural venous sinuses are patent. No cerebral aneurysms identified. The aortic arch and proximal great vessels are widely patent. There is no significant stenosis, occlusion, or dissection identified within the bilateral common carotid, internal carotid, or vertebral arteries. No pneumothorax. Emphysema is noted at the lung apices. Cervical spinal fusion hardware is noted. A left mastoid effusion. The right vertebral artery is hypoplastic. There is mild to moderate calcified plaque within the bilateral carotid bifurcations without significant stenosis. IMPRESSION: 1. Focal area of short segment occlusion within the proximal to mid right RADIATION CONTROL TECHNICIAN and a focal area of occlusion within the mid left MIREYA. These are age i ndeterminate but may be chronic. 2. Severe focal stenosis within the junction of the distal right vertebral artery/posterior inferior cerebellar artery. 3. No significant stenosis, occlusion, or dissection identified within the carotid or vertebral arteries. 4. Additional findings as described above. ACT 112: Negative or not required by law. Electronically signed by: Desmond Baez M.D. 06/04/2023 11:10 AM Neck CTA 06/04/23 10:20 HEAD & NECK CTA HISTORY: neuro deficit, acute stroke suspected TECHNIQUE: Multiaxial CT images of the head were performed following the intravenous administration of contrast to evaluate the major cerebral vessels. Multiaxial CT images of the neck were also performed following the intravenous administration of contrast to evaluate the major cervical vessels. 3D/MIP images were also obtained. Sagittal and coronal reformats were reviewed. A dose lowering technique was utilized adhering to the principles of ALARA. COMPARISON: Head CT 06/04/2023. FINDINGS: There is a hypoplastic right vertebral artery which terminates into the post erior inferior cerebellar artery. There is a focal area of severe stenosis at the junction of the distal right vertebral artery/posterior inferior cerebellar artery. This seen on image 78. Otherwise, the remaining right posterior inferior cerebellar artery is patent. The distal left vertebral artery and basilar artery are widely patent. There is a hypoplastic right P1 segment. Multifocal areas of high-grade stenosis as well as a focal area of short segment occlusion within the proximal to mid right RADIATION CONTROL TECHNICIAN. This is best seen image 128. The distal right RADIATION CONTROL TECHNICIAN branches are patent. Mild calcified plaque within the bilateral carotid siphons. The visualized intracranial internal carotid arteries appear patent. Mild focal stenosis within the proximal left RADIATION CONTROL TECHNICIAN. The bilateral MCAs and right MIREYA showed n o significant stenosis, occlusion, or aneurysm. Focal vascular cut off within the mid left MIREYA best seen on image 107. There is faint visualization of the distal left MIREYA branches. The major dural venous sinuses are patent. No cerebral aneurysms identified. The aortic arch and proximal great vessels are widely patent. There is no significant stenosis, occlusion, or dissection identified within the bilateral common carotid, internal carotid, or vertebral arteries. No pneumothorax. Emphysema is noted at the lung apices. Cervical spinal fusion hardware is noted. A left mastoid effusion. The right vertebral artery is hypoplastic. There is mild to moderate calcified plaque within the bilateral carotid bifurcations without significant stenosis. IMPRESSION: 1. Focal area of short segment occlusion within the proximal to mid right RADIATION CONTROL TECHNICIAN and a focal area of occlusion within the mid left MIREYA. These are age indeterminate but may be chronic. 2. Severe focal stenosis within the junction of the distal right vertebral art salvador/posterior inferior cerebellar artery. 3. No significant stenosis, occlusion, or dissection identified within the carotid or vertebral arteries. 4. Additional findings as described above. ACT 112: Negative or not required by law. Electronically signed by: Desmond Baez M.D. 06/04/2023 11:10 AM ECG Data Attestation: I personally reviewed and interpreted this ECG as follows: Indication: + altered mental status Rate (beats per minute): 74 Rhythm: + normal sinus ECG Intervals/blocks: + Normal QRS, + Normal QT and + Normal OK ECG [place]: + Normal ECG ST segments: + Normal ST segments ECG Findings: + PVCs; no PACs Comparison ECG Date: from (10/09/18) Change: no significant change MDM Narrative This patient comes in as described above. She was placed in room 81 I did talk to the paramedics prior to arrival and based on her symptoms I was concerned she was having acute stroke potentially so I made her a stroke alert and we took her straight to the CAT scan prior to rooming her in room A1. I did also call [facility] and talk to Dr. Fontanez even prior to the patient's arrival to help expedite her care. She had a full stroke work-up. Her blood sugar prior to arrival was 106. She was taken straight to CAT scan where she had CT of the head as well as the CT angio of the head and neck. I saw her when they came back and they says she is doing much better she is now awake and talking she is reading. She denies any complaints. The right arm that was flaccid is now moving. She is significantly improved. Denies any pain denies shortness of breath denies headache. No urinary symptoms. Family came in to talk to them at length as well. I talked to the family at length. The patient was evaluated by Dr. Fontanez. He thinks the symptoms may have started sometime yesterday as she was off yesterday as well. I did review the CAT scan as well as CTA with her and he said based on the time as well as her imaging he does not feel that she would be a lytic or interventional candidate. She does have some potential lesions on the CT angiography but he does not feel they correspond with her symptoms and even if they do she is likely outside the window for any intervention and these lesions areas are not amenable to intervention. He did recommend IV hydration, aspirin, and stroke work-up/care. I did order normal saline bolus as well as an hourly rate of normal saline as well as chewable 324 mg aspirin. She was reassessed frequently. She has no fever or white count to suggest infection. She has no significant electrolyte or metabolic abnormality. Her EKG does not suggest acute coronary syndrome or arrhythmia. I have consulted and discussed the case with the [facility] to admit her for further treatment and evaluation Continuous cardiac monitoring: Orders placed in EMR for continuous cardiac. Upon my evaluation patient noted to be in normal sinus rhythm rate of 70 Impression & Plan Syncopal episodes, Transient neurological symptoms, Atherosclerotic cerebrovascular disease, Weakness of right arm Discharge Plan Visit Data Chief Complaint: Stroke Alert ED Provider: Rosalino Castanon Discharge Problem: Syncopal episodes, Transient neurological symptoms, Atherosclerotic cerebrovascular disease, Weakness of right arm Patient Disposition: Admitted As Inpatient Discharge Instructions Interventions: ED Discharge Assessment Last Done: 06/04/23 13:53
[2023-06-04] MEDS ORDERED: IOVERSOL 350 MG 125mL Prefilled Syringe IV ONE (10:40)
--- NOTE | 2023-06-04 11:03 | CT Scan Report ---
HEAD CT NONCONTRAST CT DOSE: HISTORY: neuro deficit, acute stroke suspected TECHNIQUE: Multiaxial CT images of the head were performed without the use of intravenous contrast. A utomated exposure control was utilized for this study. A dose lowering technique was utilized adheri ng to the principles of ALARA. Comparison: Brain MRI 10/10/2018. Findings: The paranasal sinuses and right mastoid air cells are clear. There is a chronic left mastoi d effusion, unchanged. The calvarium and skull base are intact. There is no mass, hematoma, midline s hift, acute infarct. White matter hypodensity is nonspecific but suggestive of microvascular ischemic change. The ventricles and sulci demonstrate mild age-related involutional changes. Mild motion jorgito fact. Old punctate lacunar infarct seen within the left cerebellar hemisphere and an old small infarc t within the right basal ganglia. Impression: No acute intracranial abnormality. Atrophy and microvascular ischemic changes. ACT 112: Negative or not required by law. Electronically signed by: Desmond Baez M.D. 06/04/2023 11:01 AM
[2023-06-04 11:08] LABS: Basophils # (auto) 0.05 K/uL (0-0.2); Basophils % (auto) 0.9 %; Eosinophils # (auto) 0.13 K/uL (0-0.50); Eosinophils % (auto) 2.3 %; Hematocrit (blood only) 42.3 % (37.0-47.0); Hemoglobin 13.7 g/dl (12.0-16.0); Immature Granulocytes # (auto) 0.02 K/uL (0.01-0.20); Immature Granulocytes % (auto) 0.4 %; Lymphocytes # (auto) 1.42 K/uL (1.2-3.4); Lymphocytes % (auto) 24.9 %; Mean Corpuscular Hgb Conc 32.4 g/dL (32.0-36.0); Mean Corpuscular Volume 89.4 fL (80.0-100.0); Mean Platelet Volume 10.2 fL (9.4-12.4); Monocytes % (auto) 8.8 %; Neutrophils # (auto) 3.59 K/uL (1.40-6.50); Neutrophils % (auto) 62.7 %; Platelet Count 188 K/uL (130-400); RDW Standard Deviation 45.6 fL (36.4-46.3); Red Blood Count 4.73 M/uL (4.20-5.40); White Blood Count 5.71 K/ul (4.8-10.8)
[2023-06-04] MEDS ORDERED: SODIUM CHLORIDE 0.9% 1000ML 500 ML IV ONE (11:13)
--- NOTE | 2023-06-04 11:13 | CT Scan Report ---
HEAD & NECK CTA HISTORY: neuro deficit, acute stroke suspected TECHNIQUE: Multiaxial CT images of the head were performed following the intravenous administration o f contrast to evaluate the major cerebral vessels. Multiaxial CT images of the neck were also perform ed following the intravenous administration of contrast to evaluate the major cervical vessels. 3D/IL P images were also obtained. Sagittal and coronal reformats were reviewed. A dose lowering technique was utilized adhering to the principles of ALARA. COMPARISON: Head CT 06/04/2023. FINDINGS: There is a hypoplastic right vertebral artery which terminates into the posterior inferior cerebellar artery. There is a focal area of severe stenosis at the junction of the distal right vertebral arter y/posterior inferior cerebellar artery. This seen on image 78. Otherwise, the remaining right posteri or inferior cerebellar artery is patent. The distal left vertebral artery and basilar artery are wide ly patent. There is a hypoplastic right P1 segment. Multifocal areas of high-grade stenosis as well a s a focal area of short segment occlusion within the proximal to mid right COUNSELLING PSYCHOLOGIST. This is best seen brayan ge 128. The distal right COUNSELLING PSYCHOLOGIST branches are patent. Mild calcified plaque within the bilateral carotid siphons. The visualized intracranial internal carotid arteries appear patent. Mild focal stenosis wit hin the proximal left COUNSELLING PSYCHOLOGIST. The bilateral MCAs and right MIREYA showed no significant stenosis, occlusion , or aneurysm. Focal vascular cut off within the mid left MIREYA best seen on image 107. There is faint visualization of the distal left MIREYA branches. The major dural venous sinuses are patent. No cerebral aneurysms identified. The aortic arch and proximal great vessels are widely patent. There is no significant stenosis, occ lusion, or dissection identified within the bilateral common carotid, internal carotid, or vertebral arteries. No pneumothorax. Emphysema is noted at the lung apices. Cervical spinal fusion hardware is noted. A left mastoid effusion. The right vertebral artery is hypoplastic. There is mild to moderate calcified plaque within the bilateral carotid bifurcations without significant stenosis. IMPRESSION: 1. Focal area of short segment occlusion within the proximal to mid right COUNSELLING PSYCHOLOGIST and a focal area of occ lusion within the mid left MIREYA. These are age indeterminate but may be chronic. 2. Severe focal stenosis within the junction of the distal right vertebral artery/posterior inferior cerebellar artery. 3. No significant stenosis, occlusion, or dissection identified within the carotid or vertebral arter ies. 4. Additional findings as described above. ACT 112: Negative or not required by law. Electronically signed by: Desmond Baez M.D. 06/04/2023 11:10 AM
--- NOTE | 2023-06-04 11:13 | CT Scan Report ---
HEAD & NECK CTA HISTORY: neuro deficit, acute stroke suspected TECHNIQUE: Multiaxial CT images of the head were performed following the intravenous administration o f contrast to evaluate the major cerebral vessels. Multiaxial CT images of the neck were also perform ed following the intravenous administration of contrast to evaluate the major cervical vessels. 3D/OK P images were also obtained. Sagittal and coronal reformats were reviewed. A dose lowering technique was utilized adhering to the principles of ALARA. COMPARISON: Head CT 06/04/2023. FINDINGS: There is a hypoplastic right vertebral artery which terminates into the posterior inferior cerebellar artery. There is a focal area of severe stenosis at the junction of the distal right vertebral arter y/posterior inferior cerebellar artery. This seen on image 78. Otherwise, the remaining right posteri or inferior cerebellar artery is patent. The distal left vertebral artery and basilar artery are wide ly patent. There is a hypoplastic right P1 segment. Multifocal areas of high-grade stenosis as well a s a focal area of short segment occlusion within the proximal to mid right PARTNERSHIP MANAGER. This is best seen brayan ge 128. The distal right PARTNERSHIP MANAGER branches are patent. Mild calcified plaque within the bilateral carotid siphons. The visualized intracranial internal carotid arteries appear patent. Mild focal stenosis wit hin the proximal left PARTNERSHIP MANAGER. The bilateral MCAs and right MIREYA showed no significant stenosis, occlusion , or aneurysm. Focal vascular cut off within the mid left MIREYA best seen on image 107. There is faint visualization of the distal left MIREYA branches. The major dural venous sinuses are patent. No cerebral aneurysms identified. The aortic arch and proximal great vessels are widely patent. There is no significant stenosis, occ lusion, or dissection identified within the bilateral common carotid, internal carotid, or vertebral arteries. No pneumothorax. Emphysema is noted at the lung apices. Cervical spinal fusion hardware is noted. A left mastoid effusion. The right vertebral artery is hypoplastic. There is mild to moderate calcified plaque within the bilateral carotid bifurcations without significant stenosis. IMPRESSION: 1. Focal area of short segment occlusion within the proximal to mid right PARTNERSHIP MANAGER and a focal area of occ lusion within the mid left MIREYA. These are age indeterminate but may be chronic. 2. Severe focal stenosis within the junction of the distal right vertebral artery/posterior inferior cerebellar artery. 3. No significant stenosis, occlusion, or dissection identified within the carotid or vertebral arter ies. 4. Additional findings as described above. ACT 112: Negative or not required by law. Electronically signed by: Desmond Baez M.D. 06/04/2023 11:10 AM
[2023-06-04] MEDS ORDERED: ASPIRIN 81 MG CHEW PO STA (11:14)
[2023-06-04] MEDS ORDERED: SODIUM CHLORIDE 0.9% 1000ML 1,000 ML IV SCH (11:15)
[2023-06-04 11:26] LABS: Alanine Aminotransferase 10 U/L (7-52); Albumin Globulin Ratio 1.3 (0.9-2); Albumin Level 3.1 gm/dl (3.4-5.0); Alkaline Phosphatase 45 U/L (34-104); Anion Gap 3 (3-11); Aspartate Aminotransferase 16 U/L (13-39); BUN Creatinine Ratio 29.7 (10-20); Bilirubin,Total 0.5 mg/dl (0.2-1.0); Blood Urea Nitrogen 19 mg/dl (6-23); Calcium 8.1 mg/dl (8.6-10.3); Carbon Dioxide 31 mmol/L (21-32); Chloride 103 mmol/L (98-107); Est GFR (African American) 97.7 ml/min; Est GFR (Non-African American) 84.3 ml/min; Globulin 2.3 gm/dl (2.5-4.0); Glucose 99 mg/dl (70-99(Fasting)); Magnesium 1.7 mg/dl (1.7-2.4); Potassium 3.9 mmol/L (3.5-5.1); Sodium 137 mmol/L (136-145); Total Protein 5.4 gm/dl (6.0-8.3)
[2023-06-04 11:32] LABS: Troponin I High Sensitivity 3.6 pg/ml (0-14)
[2023-06-04 11:39] LABS: INR 1.1 (0.9-1.1); Partial Thromboplastin Ratio 0.9; Partial Thromboplastin Time 26.1 Seconds (21.0-31.0); Prothrombin Time 11.9 Seconds (9.0-12.0)
--- NOTE | 2023-06-04 11:41 | History & Physical Report ---
Date of Service June 04, 2023 Assessment & Plan (1) Acute CVA (cerebrovascular accident): Plan: Admit to telemetry Patient presenting from home with decreased responsiveness, right arm weakness, generalized weakness. Stroke alert called, patient not felt to be candidate for tPA due to last well- known being yesterday Head CT - No acute intracranial abnormality. Atrophy and microvascular ischemic changes. Head/Neck CTA - 1. Focal area of short segment occlusion within the proximal to mid right ELECTROCHEMIST and a focal area of occlusion within the mid left MIREYA. These are age indeterminate but may be chronic. 2. Severe focal stenosis within the junction of the distal right vertebral artery/posterior inferior cerebellar artery. 3. No significant stenosis, occlusion, or dissection identified within the carotid or vertebral arteries. Brain MRI - Multifocal areas of restricted diffusion within the left anterior cerebral artery territory consistent with an acute infarct S/p full dose aspirin in the ED, continue with ASA 81 mg daily, add Plavix 75 mg and atorvastatin 40 mg Echo Neurology consult PT/OT (2) Hypothyroidism: Plan: Continue levothyroxine (3) COPD, mild: Plan: No signs of acute exacerbation Continue home inhalers DVT PROPHYLAXIS SQ Lovenox Patient seen in collaboration with Dr. Maldonado. I spent a total of 75 minutes coordinating, documenting, and providing care for this patient excluding time spent in the performance of separately billed services. This included personally reviewing all current laboratories and imaging studies, medication reconciliation, outpatient chart review, and discussion with specialists. History of Present Illness Chief Complaint: Altered mental status Primary Care Provider: Santo Eagle MD 78-year-old female with PMH hypothyroidism, HLD, COPD, GERD, cervical myelopathy, and other problems listed below who presents to the ED for evalu ation of altered mental status. History initially obtained from patient however additional information obtained from patient's once he arrived. Outpatient PCP records also reviewed. states that yesterday afternoon, patient slid out of her chair onto the floor. He found her sitting on the floor against the chair. He helped her up and placed her back into the chair. Patient seemed to be generally weak. states that patient seemed to "slow down" throughout the day. She is normally very talkative however states she barely said anything last evening. At one point she would not respond to him at all however her eyes were open and she was following simple commands. When it came time for her to go to bed, she had much trouble standing and required a walker to stand which is not usual. states she slept until about 830 which is usual for the patient. Patient was able to walk to the table and had breakfast. states that she again had an episode of unresponsiveness in her right arm slumped down. EMS was subsequently called and patient was brought to the ED for further evaluation. Stroke alert was called and patient was not felt to be a candidate for tPA. In the ED, head CT negative for acute findings. Head/neck CTA show focal area of short segment occlusion within the proximal to mid right ELECTROCHEMIST and a focal area of occlusion within the mid left MIREYA. These are age indeterminate but may be chronic. Severe focal stenosis within the junction of the distal right vertebral artery/posterior inferior cerebellar artery. Patient was given full dose aspirin. Allergies Allergy/AdvReac Type Severity Reaction Status Date / Time No Known Allergies Allergy Unknown Verified 03/31/20 15:38 Home Medications Medication Instructions Recorded Confirmed Type albuterol sulfate 90 mcg/actuation 2 puff inhalation QID PRN 10/06/18 06/04/23 History aerosol inhaler (Ventolin HFA) Shortness Of Breath Or Wheezing ipratropium 0.5 mg-albuterol 3 mg 3 ml inhalation Q4 PRN Shortness 10/06/18 06/04/23 History (2.5 mg base)/3 mL nebulization Of Breath Or Wheezing soln lorazepam 1 mg tablet (Ativan) 1 mg PO HS PRN Insomnia 10/06/18 06/04/23 History vitamins A,C,P-ltnl-iauqao 2,148 1 tab PO DAILY 10/06/18 06/04/23 History mcg-113 mg-45 mg-17.4 mg tablet (PreserVision AREDS) aspirin 81 mg tablet,delayed 81 mg PO DAILY 06/04/23 06/04/23 History release cholecalciferol (vitamin D3) 125 125 mcg PO DAILY 06/04/23 06/04/23 History mcg (5,000 unit) tablet (Vitamin D3) cyanocobalamin (vitamin B-12) 1,000 mcg PO DAILY 06/04/23 06/04/23 History 1,000 mcg tablet fluticasone propionate 50 2 spray intranasal HS 06/04/23 06/04/23 History mcg/actuation nasal spray,suspension levothyroxine 112 mcg tablet 112 mcg PO DAILY 06/04/23 06/04/23 History loratadine 10 mg tablet 10 mg PO DAILY 06/04/23 06/04/23 History mometasone-formoterol HFA 200 2 puff inhalation AMPM 06/04/23 06/04/23 History mcg-5 mcg/actuation aerosol inhaler (Dulera) pregabalin 100 mg capsule 100 mg PO BID 06/04/23 06/04/23 History solifenacin 5 mg tablet 5 mg PO DAILY 06/04/23 06/04/23 History zoledronic acid 5 mg/100 mL in 1 ea IV UD 06/04/23 06/04/23 History mannitol 5 %-water intravenous piggybck Past Med/Surg History Medical History (Updated 06/04/23 @ 14:39 by REER Mendoza) Attic perforation of tympanic membrane, left ear Cervical spondylosis with myelopathy COPD, mild Hypothyroidism Insomnia Osteoporosis Status post closed fracture of right femur Surgical History H/O cervical spine surgery History of hysterectomy History of left hip hemiarthroplasty Family History Father Heart disease Sister Breast cancer Social History Smoking Status: Never smoker Hx Alcohol Use: No Hx Substance Use: No Preferred Language: Maori Communication Ability: Effective Visual Impairment: No 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 Maldonado's addendum for physical exam Results & Data Results & Data Vital Signs (Past 12 Hours) Vital Signs Temp Pulse Resp BP Pulse Ox O2 Del Method 06/04/23 11:20 68 21 92 06/04/23 11:15 169/82 H 06/04/23 11:15 71 22 92 06/04/23 11:10 73 23 91 06/04/23 11:23 77 06/04/23 11:02 73 24 92 06/04/23 11:02 166/72 H 06/04/23 11:00 71 20 92 06/04/23 10:50 71 22 91 06/04/23 10:48 67 20 06/04/23 10:27 Room Air 06/04/23 10:27 36.7 C 74 20 157/68 H 92 Room Air Laboratory Results Short CBC 06/04/23 Range/Units 10:37 WBC 5.71 (4.8-10.8) K/ul Hgb 13.7 (12.0-16.0) g/dl Hct 42.3 (37.0-47.0) % Plt Count 188 (130-400) K/uL BMP 06/04/23 10:37 Sodium 137 Potassium 3.9 Chloride 103 Carbon Dioxide 31 BUN 19 Creatinine 0.64 Glucose 99 Calcium 8.1 L Liver Function 06/04/23 Range/Units 10:37 Total Bilirubin 0.5 (0.2-1.0) mg/dl AST 16 (13-39) U/L ALT 10 (7-52) U/L Alkaline Phosphatase 45 (34-104) U/L Albumin 3.1 L (3.4-5.0) gm/dl Diagnostic Findings Head CT 06/04/23 10:[address] DOSE: HISTORY: neuro deficit, acute stroke suspected TECHNIQUE: Multiaxial CT images of the head were performed without the use of intravenous contrast. Automated exposure control was utilized for this study. A dose lowering technique was utilized adhering to the principles of ALARA. Comparison: Brain MRI 10/10/2018. Findings: The paranasal sinuses and right mastoid air cells are clear. There is a chronic left mastoid effusion, unchanged. The calvarium and skull base are intact. There is no mass, hematoma, midline shift, acute infarct. White matter hypodensity is nonspecific but suggestive of microvascular ischemic change. The ventricles and sulci demonstrate mild age-related involutional changes. Mild motion artifact. Old punctate lacunar infarct seen within the left cerebellar hemisphere and an old small infarct within the right basal ganglia. Impression: No acute intracranial abnormality. Atrophy and microvascular ischemic changes. ACT 112: Negative or not required by law. Electronically signed by: Desmond Baez M.D. 06/04/2023 11:01 AM Head CTA 06/04/23 10:20 HEAD & NECK CTA HISTORY: neuro deficit, acute stroke suspected TECHNIQUE: Multiaxial CT images of the head were performed following the intravenous administration of contrast to evaluate the major cerebral vessels. Multiaxial CT images of the neck were also performed following the intravenous administration of contrast to evaluate the major cervical vessels. 3D/MIP images were also obtained. Sagittal and coronal reformats were reviewed. A dose lowering technique was utilized adhering to the principles of ALARA. COMPARISON: Head CT 06/04/2023. FINDINGS: There is a hypoplastic right vertebral artery which terminates into the post erior inferior cerebellar artery. There is a focal area of severe stenosis at the junction of the distal right vertebral artery/posterior inferior cerebellar artery. This seen on image 78. Otherwise, the remaining right posterior inferior cerebellar artery is patent. The distal left vertebral artery and basilar artery are widely patent. There is a hypoplastic right P1 segment. Multifocal areas of high-grade stenosis as well as a focal area of short segment occlusion within the proximal to mid right ELECTROCHEMIST. This is best seen image 128. The distal right ELECTROCHEMIST branches are patent. Mild calcified plaque within the bilateral carotid siphons. The visualized intracranial internal carotid arteries appear patent. Mild focal stenosis within the proximal left ELECTROCHEMIST. The bilateral MCAs and right MIREYA showed n o significant stenosis, occlusion, or aneurysm. Focal vascular cut off within the mid left MIREYA best seen on image 107. There is faint visualization of the distal left MIREYA branches. The major dural venous sinuses are patent. No cerebral aneurysms identified. The aortic arch and proximal great vessels are widely patent. There is no significant stenosis, occlusion, or dissection identified within the bilateral common carotid, internal carotid, or vertebral arteries. No pneumothorax. Emphysema is noted at the lung apices. Cervical spinal fusion hardware is noted. A left mastoid effusion. The right vertebral artery is hypoplastic. There is mild to moderate calcified plaque within the bilateral carotid bifurcations without significant stenosis. IMPRESSION: 1. Focal area of short segment occlusion within the proximal to mid right ELECTROCHEMIST and a focal area of occlusion within the mid left MIREYA. These are age indeterminate but may be chronic. 2. Severe focal stenosis within the junction of the distal right vertebral artery/posterior inferior cerebellar artery. 3. No significant stenosis, occlusion, or dissection identified within the carotid or vertebral arteries. 4. Additional findings as described above. ACT 112: Negative or not required by law. Electronically signed by: Desmond Baez M.D. 06/04/2023 11:10 AM Neck CTA 06/04/23 10:20 HEAD & NECK CTA HISTORY: neuro deficit, acute stroke suspected TECHNIQUE: Multiaxial CT images of the head were performed following the intravenous administration of contrast to evaluate the major cerebral vessels. Multiaxial CT images of the neck were also performed following the intravenous administration of contrast to evaluate the major cervical vessels. 3D/MIP images were also obtained. Sagittal and coronal reformats were reviewed. A dose lowering technique was utilized adhering to the principles of ALARA. COMPARISON: Head CT 06/04/2023. FINDINGS: There is a hypoplastic right vertebral artery which terminates into the posterior inferior cerebellar artery. There is a focal area of severe stenosis at the junction of the distal right vertebral artery/posterior inferior cerebellar artery. This seen on image 78. Otherwise, the remaining right posterior inferior cerebellar artery is patent. The distal left vertebral artery and basilar artery are widely patent. There is a hypoplastic right P1 segment. Multifocal areas of high-grade stenosis as well as a focal area of short segment occlusion within the proximal to mid right ELECTROCHEMIST. This is best seen image 128. The distal right ELECTROCHEMIST branches are patent. Mild calcified plaque within the bilateral carotid siphons. The visualized intracranial internal carotid arteries appear patent. Mild focal stenosis within the proximal left ELECTROCHEMIST. The bilateral MCAs and right MIREYA showed no significant stenosis, occlusion, or aneurysm. Focal vascular cut off within the mid left MIREYA best seen on image 107. There is faint visualization of the distal left MIREYA branches. The major dural venous sinuses are patent. No cerebral aneurysms identified. The aortic arch and proximal great vessels are widely patent. There is no significant stenosis, occlusion, or dissection identified within the bilateral common carotid, internal carotid, or vertebral arteries. No pneumothorax. Emphysema is noted at the lung apices. Cervical spinal fusion hardware is noted. A left mastoid effusion. The right vertebral artery is hypoplastic. There is mild to moderate calcified plaque within the bilateral carotid bifurcations without significant stenosis. IMPRESSION: 1. Focal area of short segment occlusion within the proximal to mid right ELECTROCHEMIST and a focal area of occlusion within the mid left MIREYA. These are age indeterminate but may be chronic. 2. Severe focal stenosis within the junction of the distal right vertebral artery/posterior inferior cerebellar artery. 3. No significant stenosis, occlusion, or dissection identified within the carotid or vertebral arteries. 4. Additional findings as described above. ACT 112: Negative or not required by law. Electronically signed by: Desmond Baez M.D. 06/04/2023 11:10 AM Brain MRI 06/04/23 12:01 Brain MRI WITHOUT CONTRAST HISTORY: Right hand weakness. TECHNIQUE: Multiplanar multisequence MRI of the brain was performed without the use of contrast. COMPARISON STUDY: Head CT 06/04/2023. FINDINGS: Multifocal areas of restricted diffusion within the left anterior cerebral artery territory consistent with an acute infarct. There is no mass, hematoma, midline shift. Prior bilateral lens replacement again noted. The paranasal sinuses and right mastoid air cells are clear. A left mastoid effusion is noted. The major vascular flow-voids at the skull base are well-maintained. Old lacunar infarcts seen within the left cerebellar hemisphere and right basal ganglia. Extensive periventricular white matter T2 hyperintensity is nonspecific but favors advanced microvascular ischemic change given the patient's age. Mild to moderate atrophic changes are seen within the brain. IMPRESSION: Multifocal areas of restricted diffusion within the left anterior cerebral artery territory consistent with an acute infarct . ACT 112: Negative or not required by law. Electronically signed by: Desmond Baez M.D. 06/04/2023 1:40 PM Supervising Physician Co-Signing Physician Notes Ms. Puente is an 78-year-old female with PMHx (per chart) including but not limi adam to HLD, COPD, hypothyroidism, GERD, and cervical myelopathy. She presented with AMS. She was found to have acute CVA. Pt reports acute onset of right sided weakness today. She denies BATRES, f/c/n/v, CP, sob, cough, congestion, sore throat, abdominal pain, diarrhea, and dysuria. She does not appreciate any other changes. She did get confused between left and right during our conversation. Her arrived and was able to provide a more accurate descriptive account of what happened. This is outlined above in the HPI. ED course: Stroke alert was called and patient was not felt to be a candidate for tPA. vs notable for 160s/70s b/w notable for mild hypocalcemia, low protein and low albumin. Remaining CMP, cbc, coags, and Mg were all unimpressive/wnl. UA neg for infection. CT head negative for acute findings. CTA Head/neck read as focal area of short segment occlusion within the proximal to mid right ELECTROCHEMIST and a focal area of occlusion within the mid left MIREYA. These are age indeterminate but may be chronic. Severe focal stenosis within the junction of the distal right vertebral artery/posterior inferior cerebellar artery. Patient was given full dose aspirin and admitted to hospitalist service. Since then MRI has been read as acute CVA. General: NAD, well nourished, non-toxic appearing Head: NC AT Eyes: anicteric sclera, no conjunctival injection, unable to participate in OM testing (could not follow directions) Nose: nares patent Mouth: MMM Neck: supple, trachea midline CV: RRR S1 S2 Pulm: CTA b/l Abd/GI: + BS, soft, NT, ND, no guarding : no العلي Ext: no pretibial edema MSK: normal bulk and tone Neuro: diffuse RUE and RLE weakness, loss of sensation in the RUE, RLE. RUE turned inward. Unable to test for dysmetria with the RUE d/t pt unable to move the RLE. + dysmetria in finger to nose testing on the right Psych: pleasant mood and affect Skin: visible skin is warm, dry, and without rash. Pt not fully undressed for exam. # Right sided weakness: due to acute CVA not a candidate for tpa permissive htn for the first 24-48 hours DAPT with ASA and Plavix x 21 days followed by ASA monotherapy PT/OT consult for rehab placement f/u echo neuro consult, appreciate input, will follow recs # hypothyroidism: continue levothyroxine # COPD: stable, no acute exacerbation. Continue home regimen. # HLP: follow up lipid panel. Start high dose statin therapy in the setting of acute cva with Atorvastatin 40 mg hs Rest per attested note above
--- NOTE | 2023-06-04 13:42 | Magnetic Resonance Report ---
Brain MRI WITHOUT CONTRAST HISTORY: Right hand weakness. TECHNIQUE: Multiplanar multisequence MRI of the brain was performed without the use of contrast. COMPARISON STUDY: Head CT 06/04/2023. FINDINGS: Multifocal areas of restricted diffusion within the left anterior cerebral artery territory consistent with an acute infarct. There is no mass, hematoma, midline shift. Prior bilateral lens re placement again noted. The paranasal sinuses and right mastoid air cells are clear. A left mastoid ef fusion is noted. The major vascular flow-voids at the skull base are well-maintained. Old lacunar inf arcts seen within the left cerebellar hemisphere and right basal ganglia. Extensive periventricular w zurdo matter T2 hyperintensity is nonspecific but favors advanced microvascular ischemic change given the patient's age. Mild to moderate atrophic changes are seen within the brain. IMPRESSION: Multifocal areas of restricted diffusion within the left anterior cerebral artery territory consisten t with an acute infarct . ACT 112: Negative or not required by law. Electronically signed by: Desmond Baez M.D. 06/04/2023 1:40 PM
[2023-06-04] MEDS ORDERED: PHARMACIST DISCHARGE MED REC CONSULT PRN (13:52)
[2023-06-04] MEDS ORDERED: CLOPIDOGREL BISULFATE 75 MG TAB PO ONE (14:05)
[2023-06-04] MEDS ORDERED: Patient's HEIGHT &/or WEIGHT Needed SCH (14:15)
[2023-06-04 14:41] LABS: Appearance Urine Clear (Clear); Bilirubin Urine Negative (Negative); Blood Urine Negative (Negative); Color Urine Yellow; Glucose Urine UA Negative (Negative); Ketones Urine 1+ (Negative); Leukocyte Esterase Urine Negative (Negative); Nitrite Urine Negative (Negative); Protein Urine Negative (Negative); Specific Gravity Urine > 1.045 (1.000-1.030); Urobilinogen Urine Negative (Negative)
[2023-06-04] MEDS: FLUTICASONE/VILANTEROL 200/25MCG 14 PUFFS/INHALER INH SCH (15:23)
[2023-06-04] MEDS: ATORVASTATIN 40 MG TAB PO SCH (15:23)
[2023-06-04] MEDS: ENOXAPARIN INJ 40 MG/0.4 ML SYR SQ SCH (15:24)
[2023-06-04] MEDS: PREGABALIN 100 MG CAP PO SCH (20:16)
[2023-06-04] MEDS: ACETAMINOPHEN 325 MG TAB PO PRN (20:16)
[2023-06-05] MEDS: LEVOTHYROXINE SODIUM 112 MCG TABLET PO SCH (06:11)
[2023-06-05 06:26] LABS: Basophils # (auto) 0.05 K/uL (0-0.2); Basophils % (auto) 0.8 %; Eosinophils % (auto) 3.3 %; Hemoglobin 14.3 g/dl (12.0-16.0); Immature Granulocytes # (auto) 0.01 K/uL (0.01-0.20); Immature Granulocytes % (auto) 0.2 %; Lymphocytes # (auto) 1.67 K/uL (1.2-3.4); Lymphocytes % (auto) 27.2 %; Mean Corpuscular Hemoglobin 29.1 pg (25.0-34.0); Mean Corpuscular Hgb Conc 32.5 g/dL (32.0-36.0); Mean Corpuscular Volume 89.4 fL (80.0-100.0); Mean Platelet Volume 10.3 fL (9.4-12.4); Monocytes # (auto) 0.54 K/uL (0.11-0.59); Monocytes % (auto) 8.8 %; Neutrophils # (auto) 3.68 K/uL (1.40-6.50); Neutrophils % (auto) 59.7 %; Platelet Count 201 K/uL (130-400); RDW Coefficient of Variation 13.9 % (11.5-14.5); RDW Standard Deviation 45.1 fL (36.4-46.3); Red Blood Count 4.92 M/uL (4.20-5.40); White Blood Count 6.15 K/ul (4.8-10.8)
[2023-06-05 06:50] LABS: BUN Creatinine Ratio 26.8 (10-20); Calcium 8.4 mg/dl (8.6-10.3); Chol HDL Ratio 3.3 (0-5); Creatinine Clr Calc Pharmacy 71.7 ml/min; Est GFR (African American) 102.1 ml/min; Est GFR (Non-African American) 88.1 ml/min; Potassium 3.6 mmol/L (3.5-5.1)
[2023-06-05] MEDS: ATORVASTATIN 40 MG TAB PO SCH (07:29)
[2023-06-05] MEDS: FLUTICASONE/VILANTEROL 200/25MCG 14 PUFFS/INHALER INH SCH (07:29)
[2023-06-05] MEDS: CHOLECALCIFEROL 5,000 UNITS 125 MCG TAB PO SCH (07:29)
[2023-06-05] MEDS: CYANOCOBALAMIN (B-12) 500 MCG TABLET PO SCH (07:29)
[2023-06-05] MEDS: CLOPIDOGREL BISULFATE 75 MG TAB PO SCH (07:30)
[2023-06-05] MEDS: OXYBUTYNIN CHLORIDE XL 5 MG TABCR PO SCH (07:30)
[2023-06-05] MEDS: ASPIRIN 81 MG ECTAB PO SCH (07:30)
[2023-06-05] MEDS: LORATADINE 10 MG TAB PO SCH (07:30)
[2023-06-05] MEDS: PREGABALIN 100 MG CAP PO SCH ×2 (07:37→20:01)
[2023-06-05 07:44] LABS: Estimated Average Glucose 111 mg/dl; Hemoglobin A1C 5.5 % (4.5-5.6)
--- NOTE | 2023-06-05 09:38 | CT Scan Report ---
CT head/brain wo con CLINICAL HISTORY: stroke alert Technique: Contiguous axial CT images of the head were acquired from the base of the skull to the brady claudia without intravenous contrast administration. Images were viewed in brain, subdural and bone [facility]. Automated dose lowering techniques and/or adjustment according to patient size were utilized for this exam. Comparison: Comparison is made to MRI brain 06/04/2023 Findings: Areas of decreased attenuation are present in the periventricular and subcortical white matter bilate rally consistent with small vessel ischemic disease. Generalized cerebral atrophy with commensurate e nlargement of the ventricles, sulci, and cisterns is also present. There is no acute intracranial hem orrhage or evidence of acute territorial infarction. No shift of the midline structures, mass effect, or extra-axial abnormalities are shown. Atherosclerotic calcifications are present in the intracran ial segments of the internal carotid arteries. Imaged portions of the paranasal sinuses and mastoid air cells are clear. The orbits appear normal. There are no acute fractures of the calvaria or scalp swelling. Impression: No acute intracranial hemorrhage, no evidence of acute territorial infarction or other acute intracra nial disease process. ACT 112: Negative or not required by law. Electronically signed by: Alexandru Fitzgerald M.D. 06/05/2023 9:37 AM
--- NOTE | 2023-06-05 10:06 | Electrocardiogram Report ---
Test Reason : Blood Pressure : / mmHG Vent. Rate : 074 BPM Atrial Rate : 074 BPM P-R Int : 208 ms QRS Dur : 084 ms QT Int : 416 ms P-R-T Axes : 076 063 083 degrees QTc Int : 461 ms Sinus rhythm with occasional Premature ventricular complexes Septal infarct , age undetermined Abnormal ECG When compared with ECG of 09-OCT-2018 06:28, Premature ventricular complexes are now Present Septal infarct is now Present Confirmed by Gustavo Ching ([id number]) on 06/05/2023 10:05:57 AM Referred By: REFERRED SELF Confirmed By:Gustavo Ching
--- NOTE | 2023-06-05 10:59 | Neurology Consultation ---
Date of Consultation June 05, 2023 Assessment & Plan (1) Acute CVA (cerebrovascular accident): 78 yo F presenting with L MIREYA infarct seen on MRI and fluctuating R sided symptoms. Fluctuations are common post-stroke, no change on repeat head CT today. Suspect this is in-situ athero rather than embolic mechanism as there was a stroke in 2018 in the same area suggesting the L MIREYA is the culprit vessel, though no vessel imaging was done at that time. Would still discharge with a cardiac event monitor for afib. Agree with LE dopplers though doubt PFO is causative given her age and risk factors. Would also bladder scan as MIREYA infarcts can lead to urinary retention which we wouldnt want to miss. Otherwise agree with aspirin and plavix for 21 days, then would switch to plavix monotherapy. -- LE dopplers pending -- Bladder scan x1/post-void residual -- Aspirin 81mg daily and plavix 75mg daily for 21 days, then plavix 75mg daily monotherapy -- Continue lipitor 40mg daily -- Therapy evals ongoing, expect fluctuation in symptoms, would be a good rehab candidate -- Cardiac event monitor for afib -- Neurology follow-up in 6 weeks post-discharge Telehealth Consultation Telehealth Information Telehealth Information: I performed this visit using a real-time telehealth connection between my location and the patients location ([facility]). After connecting through interactive tele-video, patient was identified by name and date of and/or wristband check.Patient (or authorized healthcare merchandising representative) was informed that this was a telemedicine visit and it was being conducted confidentially over secure lines. My office door was closed and no one else was present in the room with me.Patient (or authorized healthcare merchandising representative) provided consent to proceed with the visit, expressed an understanding of privacy and security of the telemedicine visit, and gave permission to have a hospital merchandising representative in the room in order to assist with the visit and to conduct portions of the visit, as needed. I informed the patient (or authorized healthcare merchandising representative) that I reviewed their record and presented the opportunity for them to ask any questions regarding the visit today. The patient agreed to participate. History of Present Illness Reason for Consultation: Stroke Requesting Physician: Dr. Chester Attending Physician: Justin Chester MD History of Present Illness Halina Puente is an 78 yo F presenting with Right sided weakness and aphasia. Her reports that on Monday he found her on the ground after having slid out of her chair. He denies any additional stroke symptoms until yesterday when he noted that she wasnt speaking as much as usual. Today she had another episode where she developed severe R leg and arm weakness that subsequently resolved. He feels that her speech is nearly back to baseline but she continues to have proximal R leg weakness. She was taking aspirin daily prior to admission. Allergies Allergy/AdvReac Type Severity Reaction Status Date / Time No Known Allergies Allergy Unknown Verified 03/31/20 15:38 Home Medications Medication Instructions Recorded Confirmed Type albuterol sulfate 90 mcg/actuation 2 puff inhalation QID PRN 10/06/18 06/04/23 History aerosol inhaler (Ventolin HFA) Shortness Of Breath Or Wheezing ipratropium 0.5 mg-albuterol 3 mg 3 ml inhalation Q4 PRN Shortness 10/06/18 06/04/23 History (2.5 mg base)/3 mL nebulization Of Breath Or Wheezing soln lorazepam 1 mg tablet (Ativan) 1 mg PO HS PRN Insomnia 10/06/18 06/04/23 History vitamins A,C,C-epaa-hfdlwz 2,148 1 tab PO DAILY 10/06/18 06/04/23 History mcg-113 mg-45 mg-17.4 mg tablet (PreserVision AREDS) aspirin 81 mg tablet,delayed 81 mg PO DAILY 06/04/23 06/04/23 History release cholecalciferol (vitamin D3) 125 125 mcg PO DAILY 06/04/23 06/04/23 History mcg (5,000 unit) tablet (Vitamin D3) cyanocobalamin (vitamin B-12) 1,000 mcg PO DAILY 06/04/23 06/04/23 History 1,000 mcg tablet fluticasone propionate 50 2 spray intranasal HS 06/04/23 06/04/23 History mcg/actuation nasal spray,suspension levothyroxine 112 mcg tablet 112 mcg PO DAILY 06/04/23 06/04/23 History loratadine 10 mg tablet 10 mg PO DAILY 06/04/23 06/04/23 History mometasone-formoterol HFA 200 2 puff inhalation AMPM 06/04/23 06/04/23 History mcg-5 mcg/actuation aerosol inhaler (Dulera) pregabalin 100 mg capsule 100 mg PO BID 06/04/23 06/04/23 History solifenacin 5 mg tablet 5 mg PO DAILY 06/04/23 06/04/23 History zoledronic acid 5 mg/100 mL in 1 ea IV UD 06/04/23 06/04/23 History mannitol 5 %-water intravenous piggybck Patient History Medical History (Updated 06/04/23 @ 14:39 by RERE Mendoza) Attic perforation of tympanic membrane, left ear Cervical spondylosis with myelopathy COPD, mild Hypothyroidism Insomnia Osteoporosis Status post closed fracture of right femur Surgical History H/O cervical spine surgery History of hysterectomy History of left hip hemiarthroplasty Family History Father Heart disease Sister Breast cancer Social History Smoking Status: Never smoker Hx Alcohol Use: No Hx Substance Use: No Preferred Language: Greek Communication Ability: Effective Visual Impairment: No Limitations Lining Baster Required: No Beliefs That Will Affect Care: None Current Living Situation: Spouse Other Information That Helps Us Care for You: No Feels Safe at Home: Yes Safety Concerns: Feels Safe At This Time Assistive Devices: Oxygen - Continuous and Walker Review of Systems +R leg weakness Physical Exam Neurological Examination: Mental Status: Awake and alert. Oriented to person, place, and time. Fluent. Comprehension intact. Affect appropriate. Cranial Nerves: II: Reads NIHSS cards, pupils 3/3 to 2/2, III/IV/: Versions intact without nystagmus, no gaze preference. V: Facial sensation symmetric to light touch VII: Facial expression symmetric VIII: Hearing intact to voice IX/X: Palate elevates symmetrically XI: Shoulder shrug symmetric XII: Tongue midline Motor: Strength was symmetric and antigravity except in the RLE which is 2/5. Pronator drift was absent. There were no abnormal movements. Coordination: No dysmetria noted Reflexes: Unable to assess over telemedicine Results & Data Vital Signs (Past 12 Hours) Vital Signs Temp Pulse Pulse Resp BP BP Pulse Ox 06/05/23 09:40 77 25 H 92 06/05/23 09:30 76 23 93 06/05/23 09:20 71 18 93 06/05/23 09:15 78 24 92 06/05/23 09:15 156/72 H 06/05/23 09:12 77 17 91 06/05/23 07:25 36.6 C 71 20 156/87 H 94 06/05/23 03:00 36.5 C 65 18 168/80 H 93 06/04/23 23:00 36.5 C 66 16 165/72 H 93 O2 Del Method 06/05/23 09:40 06/05/23 09:30 06/05/23 09:20 06/05/23 09:15 06/05/23 09:15 06/05/23 09:12 06/05/23 07:25 Room Air 06/05/23 03:00 Room Air 06/04/23 23:00 Room Air Laboratory Results Abnormal lab results 06/04/23 06/04/23 06/05/23 Range/Units 10:37 14:30 06:01 Chloride 108 H (98-107) mmol/L Creatinine 0.56 L (0.6-1.2) mg/dl BUN/Creatinine Ratio 29.7 H 26.8 H (10-20) POC Glucose (70-99) mg/dl Calcium 8.1 L 8.4 L (8.6-10.3) mg/dl Total Protein 5.4 L (6.0-8.3) gm/dl Albumin 3.1 L (3.4-5.0) gm/dl Globulin 2.3 L (2.5-4.0) gm/dl Ur Specific [place] > 1.045 H (1.000-1.030) Urine Ketones 1+ H (Negative) 06/05/23 Range/Units 08:56 Chloride (98-107) mmol/L Creatinine (0.6-1.2) mg/dl BUN/Creatinine Ratio (10-20) POC Glucose 224 H (70-99) mg/dl Calcium (8.6-10.3) mg/dl Total Protein (6.0-8.3) gm/dl Albumin (3.4-5.0) gm/dl Globulin (2.5-4.0) gm/dl Ur Specific [place] (1.000-1.030) Urine Ketones (Negative) Diagnostic Findings Head CT 06/04/23 10:[address] DOSE: HISTORY: neuro deficit, acute stroke suspected TECHNIQUE: Multiaxial CT images of the head were performed without the use of intravenous contrast. Automated exposure control was utilized for this study. A dose lowering technique was utilized adhering to the principles of ALARA. Comparison: Brain MRI 10/10/2018. Findings: The paranasal sinuses and right mastoid air cells are clear. There is a chronic left mastoid effusion, unchanged. The calvarium and skull base are intact. There is no mass, hematoma, midline shift, acute infarct. White matter hypodensity is nonspecific but suggestive of microvascular ischemic change. The ventricles and sulci demonstrate mild age-related involutional changes. Mild motion artifact. Old punctate lacunar infarct seen within the left cerebellar hemisphere and an old small infarct within the right basal ganglia. Impression: No acute intracranial abnormality. Atrophy and microvascular ischemic changes. ACT 112: Negative or not required by law. Electronically signed by: Desmond Baez M.D. 06/04/2023 11:01 AM Head CTA 06/04/23 10:20 HEAD & NECK CTA HISTORY: neuro deficit, acute stroke suspected TECHNIQUE: Multiaxial CT images of the head were performed following the intravenous administration of contrast to evaluate the major cerebral vessels. Multiaxial CT images of the neck were also performed following the intravenous administration of contrast to evaluate the major cervical vessels. 3D/MIP images were also obtained. Sagittal and coronal reformats were reviewed. A dose lowering technique was utilized adhering to the principles of ALARA. COMPARISON: Head CT 06/04/2023. FINDINGS: There is a hypoplastic right vertebral artery which terminates into the posterior inferior cerebellar artery. There is a focal area of severe stenosis at the junction of the distal right vertebral artery/posterior inferior cerebellar artery. This seen on image 78. Otherwise, the remaining right posterior inferior cerebellar artery is patent. The distal left vertebral artery and basilar artery are widely patent. There is a hypoplastic right P1 segment. Multifocal areas of high-grade stenosis as well as a focal area of short segment occlusion within the proximal to mid right INSTRUMENT MAKER. This is best seen image 128. The distal right INSTRUMENT MAKER branches are patent. Mild calcified plaque within the bilateral carotid siphons. The visualized intracranial internal carotid arteries appear patent. Mild focal stenosis within the proximal left INSTRUMENT MAKER. The bilateral MCAs and right MIREYA showed no significant stenosis, occlusion, or aneurysm. Focal vascular cut off within the mid left MIREYA best seen on image 107. There is faint visualization of the distal left MIREYA branches. The major dural venous sinuses are patent. No cerebral aneurysms identified. The aortic arch and proximal great vessels are widely patent. There is no significant stenosis, occlusion, or dissection identified within the bilateral common carotid, internal carotid, or vertebral arteries. No pneumothorax. Emphysema is noted at the lung apices. Cervical spinal fusion hardware is noted. A left mastoid effusion. The right vertebral artery is hypoplastic. There is mild to moderate calcified plaque within the bilateral carotid bifurcations without significant stenosis. IMPRESSION: 1. Focal area of short segment occlusion within the proximal to mid right INSTRUMENT MAKER and a focal area of occlusion within the mid left MIREYA. These are age indeterminate but may be chronic. 2. Severe focal stenosis within the junction of the distal right vertebral artery/posterior inferior cerebellar artery. 3. No significant stenosis, occlusion, or dissection identified within the carotid or vertebral arteries. 4. Additional findings as described above. ACT 112: Negative or not required by law. Electronically signed by: Desmond Baez M.D. 06/04/2023 11:10 AM Neck CTA 06/04/23 10:20 HEAD & NECK CTA HISTORY: neuro deficit, acute stroke suspected TECHNIQUE: Multiaxial CT images of the head were performed following the intravenous administration of contrast to evaluate the major cerebral vessels. Multiaxial CT images of the neck were also performed following the intravenous administration of contrast to evaluate the major cervical vessels. 3D/MIP images were also obtained. Sagittal and coronal reformats were reviewed. A dose lowering technique was utilized adhering to the principles of ALARA. COMPARISON: Head CT 06/04/2023. FINDINGS: There is a hypoplastic right vertebral artery which terminates into the posterior inferior cerebellar artery. There is a focal area of severe stenosis at the junction of the distal right vertebral artery/posterior inferior cerebellar artery. This seen on image 78. Otherwise, the remaining right posterior inferior cerebellar artery is patent. The distal left vertebral artery and basilar artery are widely patent. There is a hypoplastic right P1 segment. Multifocal areas of high-grade stenosis as well as a focal area of short segment occlusion within the proximal to mid right INSTRUMENT MAKER. This is best seen image 128. The distal right INSTRUMENT MAKER branches are patent. Mild calcified plaque within the bilateral carotid siphons. The visualized intracranial internal carotid arteries appear patent. Mild focal stenosis within the proximal left INSTRUMENT MAKER. The bilateral MCAs and right MIREYA showed no significant stenosis, occlusion, or aneurysm. Focal vascular cut off within the mid left MRIEYA best seen on image 107. There is faint visualization of the distal left MIREYA branches. The major dural venous sinuses are patent. No cerebral aneurysms identified. The aortic arch and proximal great vessels are widely patent. There is no significant stenosis, occlusion, or dissection identified within the bilateral common carotid, internal carotid, or vertebral arteries. No pneumothorax. Emphysema is noted at the lung apices. Cervical spinal fusion hardware is noted. A left mastoid effusion. The right vertebral artery is hypoplastic. There is mild to moderate calcified plaque within the bilateral carotid bifurcations without significant stenosis. IMPRESSION: 1. Focal area of short segment occlusion within the proximal to mid right INSTRUMENT MAKER and a focal area of occlusion within the mid left MIREYA. These are age indeterminate but may be chronic. 2. Severe focal stenosis within the junction of the distal right vertebral artery/posterior inferior cerebellar artery. 3. No significant stenosis, occlusion, or dissection identified within the carotid or vertebral arteries. 4. Additional findings as described above. ACT 112: Negative or not required by law. Electronically signed by: Desmond Baez M.D. 06/04/2023 11:10 AM Brain MRI 06/04/23 12:01 Brain MRI WITHOUT CONTRAST HISTORY: Right hand weakness. TECHNIQUE: Multiplanar multisequence MRI of the brain was performed without the use of contrast. COMPARISON STUDY: Head CT 06/04/2023. FINDINGS: Multifocal areas of restricted diffusion within the left anterior cerebral artery territory consistent with an acute infarct. There is no mass, hematoma, midline shift. Prior bilateral lens replacement again noted. The paranasal sinuses and right mastoid air cells are clear. A left mastoid effusion is noted. The major vascular flow-voids at the skull base are well-maintained. Old lacunar infarcts seen within the left cerebellar hemisphere and right basal ganglia. Extensive periventricular white matter T2 hyperintensity is nonspecific but favors advanced microvascular ischemic change given the patient's age. Mild to moderate atrophic changes are seen within the brain. IMPRESSION: Multifocal areas of restricted diffusion within the left anterior cerebral artery territory consistent with an acute infarct . ACT 112: Negative or not required by law. Electronically signed by: Desmond Baez M.D. 06/04/2023 1:[address] 06/05/23 08:57 CT head/brain wo con CLINICAL HISTORY: stroke alert Technique: Contiguous axial CT images of the head were acquired from the base of the skull to the vertex without intravenous contrast administration. Images were viewed in brain, subdural and bone windows. Automated dose lowering techniques and/or adjustment according to patient size were utilized for this exam. Comparison: Comparison is made to MRI brain 06/04/2023 Findings: Areas of decreased attenuation are present in the periventricular and subcortical white matter bilaterally consistent with small vessel ischemic disease. Generalized cerebral atrophy with commensurate enlargement of the ventricles, sulci, and cisterns is also present. There is no acute intracranial hemorrhage or evidence of acute territorial infarction. No shift of the midline structures, mass effect, or extra-axial abnormalities are shown. Atherosclerotic calcifications are present in the intracranial segments of the internal carotid arteries. Imaged portions of the paranasal sinuses and mastoid air cells are clear. The orbits appear normal. There are no acute fractures of the calvaria or scalp swelling. Impression: No acute intracranial hemorrhage, no evidence of acute territorial infarction or other acute intracranial disease process. ACT 112: Negative or not required by law. Electronically signed by: Alexandru Fitzgerald M.D. 06/05/2023 9:37 AM
--- NOTE | 2023-06-05 11:19 | Ultrasound Report ---
US venous doppler LE BI CLINICAL HISTORY: rule out DVT TECHNIQUE: Bilateral lower extremity real-time compression venous ultrasound with Color Doppler imagi ng. Utilizing real-time ultrasonic imaging multiple real time high-resolution ultrasonic images with compression and noncompression maneuvers of the deep venous system in addition to color doppler imagi ng were performed from the common femoral vein through the proximal calf veins. COMPARISON: None available at the time of this dictation. FINDINGS/IMPRESSION: Currently there is normal compressibility of the deep venous system from the common femoral vein thro ugh the proximal calf veins. No superficial venous thrombosis is identified. ACT 112: Negative or not required by law. Electronically signed by: Alexandru Fitzgerald M.D. 06/05/2023 11:17 AM
--- NOTE | 2023-06-05 12:36 | Electrocardiogram Report ---
Test Reason : Blood Pressure : / mmHG Vent. Rate : 076 BPM Atrial Rate : 076 BPM P-R Int : 174 ms QRS Dur : 082 ms QT Int : 412 ms P-R-T Axes : 084 051 064 degrees QTc Int : 463 ms Sinus rhythm with occasional Premature ventricular complexes Nonspecific ST abnormality Abnormal ECG When compared with ECG of 09-OCT-2018 06:28, Premature ventricular complexes are now Present Confirmed by Gustavo Ching ([id number]) on 06/05/2023 12:35:35 PM Referred By: REFERRED SELF Confirmed By:Gustavo Ching
[2023-06-05] MEDS: SODIUM CHLORIDE 0.9% 1000ML 1,000 ML IV SCH (14:47)
[2023-06-05] MEDS: ENOXAPARIN INJ 40 MG/0.4 ML SYR SQ SCH (14:47)
--- NOTE | 2023-06-05 14:51 | Pharmacy Report ---
- Date of Service June 05, 2023 - Pharmacy CVA/TIA Medication Review Medications to Prevent Stroke handout has been added to the patients discharge packet. Antiplatelet(s) * Aspirin 81 mg PO daily x 21 days * Clopidogrel 75 mg PO daily x life Cholesterol * High intensity statin: atorvastatin 40 mg daily DVT Prophylaxis * Enoxaparin SQ Therapeutic Anticoagulation * No history of Afib/Aflutter noted Type 2 Diabetes * Patient does not have T2DM
--- NOTE | 2023-06-05 15:25 | Hospitalist Progress Note ---
Date of Service June 05, 2023 Assessment & Plan (1) Acute CVA (cerebrovascular accident): Plan: Patient is a 78-year-old female was brought by her family for altered mental status. one day prior to presentation she was found sitting on the floor against the chair; she was also found to be weaker on her right side. Her brought her to the hospital. Stroke alert was called in the ED. Patient was not a candidate for tPA. MRI brain showed left MIREYA stroke. Patient was admitted to PCU for further monitoring. On the morning of June 05 at 9 PM; she was found by physical therapist to be less responsive. Stroke alert was called again. Patient was evaluated the bedside; she was awake, oriented to self place and person. She was slow to response to commands. Patient had right upper extremity and right lower extremity weakness symptoms; similar to the findings documented in the physical exam yesterday. CT head without contrast was independently reviewed; no acute findings are seen. Discussion was done with Dr. Sifuentes from [facility]; no further work-up suggested. Patient's symptoms for similar to her presentation and consistent with a stroke. Recommended bedrest for the patient and IV fluids to increase perfusion. Echocardiogram showed EF of 55 to 60%; small intra-arterial shunt was seen. Lower extremity venous duplex negative for any stroke. Bladder scan did not show any retention Will continue aspirin and Plavix for 21 days and then Plavix 75 mg daily Lipitor 40 mg daily school lunch monitor for A-fib. Neurology follow-up in 6 weeks post discharge. Continue IV fluids till tomorrow morning at NS 75 cc/h. Monitor for fluctuation poststroke. PT OT eval; likely discharge to acute rehab. (2) Hypothyroidism: Plan: Continue levothyroxine (3) COPD, mild: Plan: No signs of acute exacerbation Continue home inhalers DVT PROPHYLAXIS SQ Lovenox Discussed with at bedside. Answers questions/queries. Critical time spent evaluating patient, direct bedside care, chart review, placing orders, interpretation of diagnostic studies, discussion with consultants, patient, and family members, as well as other required patient management activities is 40 minutes. Please note the above document was generated using voice recognition software. It may contain grammatical, syntax or spelling errors. Any formal questions or concerns about the content, text or information contained within the body of this dictation should be directly addressed to the provider for clarification Admission and Anticipated Discharge Date Admission Date: June 05, 2023 Subjective Stroke alert was called in the 9 AM today as patient was found to be minimally responsive and was unable to speak. Patient was evaluated the bedside; she was awake, oriented to self place and person. She was slow to response to commands. Patient had right upper extremity and right lower extremity weakness symptoms; similar to the findings documented in the physical exam yesterday. CT head without contrast was independently reviewed; no acute findings are seen. Discussion was done with Dr. Sifuentes from [facility]; no further work-up suggested. Patient's symptoms for similar to her presentation and consistent with a stroke. Review of Systems Review of Systems: All systems reviewed & are unremarkable except as noted in Subjective Physical Exam Physical Exam: Constitutional: Awake, alert oriented x3; slow to respond to question. Respiratory: Bilateral basal breath sound Cardiovascular: S1-S2, no murmur Chest: normal inspection of chest Abdomen: Soft, nontender Musculoskeletal: no cyanosis or clubbing, Skin: no rashes, warm and dry normal turgor Neurologic: Awake, oriented x3; slow to respond to questions. No facial droop Decreased strength in right lower extremity2/5. Decreased strength in right upper extremity as well. No sensory deficit noted Psychiatric: A+Ox3, euthymic affect Results & Data Results & Data Vital Signs (Past 12 Hours) Vital Signs Temp Pulse Pulse Resp BP BP Pulse Ox 06/05/23 11:00 75 06/05/23 11:00 06/05/23 09:40 77 25 H 92 06/05/23 09:30 76 23 93 06/05/23 09:20 71 18 93 06/05/23 09:15 78 24 92 06/05/23 09:15 156/72 H 06/05/23 09:12 77 17 91 06/05/23 07:25 36.6 C 71 20 156/87 H 94 O2 Del Method 06/05/23 11:00 06/05/23 11:00 Room Air 06/05/23 09:40 06/05/23 09:30 06/05/23 09:20 06/05/23 09:15 06/05/23 09:15 06/05/23 09:12 06/05/23 07:25 Room Air Laboratory Results Laboratory Results WBC 6.15 K/ul (4.8-10.8) 08/21/23 06:01 RBC 4.92 M/uL (4.20-5.40) 06/05/23 06:01 Hgb 14.3 g/dl (12.0-16.0) 06/05/23 06:01 Hct 44.0 % (37.0-47.0) 06/05/23 06:01 MCV 89.4 fL (80.0-100.0) 06/05/23 06:01 MCH 29.1 pg (25.0-34.0) 06/05/23 06:01 MCHC 32.5 g/dL (32.0-36.0) 06/05/23 06:01 RDW Std Deviation 45.1 fL (36.4-46.3) 06/05/23 06:01 RDW Coeff of Jose A 13.9 % (11.5-14.5) 06/05/23 06:01 Plt Count 201 K/uL (130-400) 06/05/23 06:01 MPV 10.3 fL (9.4-12.4) 06/05/23 06:01 Immature Gran % (Auto) 0.2 % 06/05/23 06:01 Neut % (Auto) 59.7 % 06/05/23 06:01 Lymph % (Auto) 27.2 % 06/05/23 06:01 [place] % (Auto) 8.8 % 06/05/23 06:01 Eos % (Auto) 3.3 % 06/05/23 06:01 Baso % (Auto) 0.8 % 06/05/23 06:01 Neut # (Auto) 3.68 K/uL (1.40-6.50) 06/05/23 06:01 Lymph # (Auto) 1.67 K/uL (1.2-3.4) 06/05/23 06:01 [place] # (Auto) 0.54 K/uL (0.11-0.59) 06/05/23 06:01 Eos # (Auto) 0.20 K/uL (0-0.50) 06/05/23 06:01 Baso # (Auto) 0.05 K/uL (0-0.2) 06/05/23 06:01 Immature Gran # (Auto) 0.01 K/uL (0.01-0.20) 06/05/23 06:01 PT 11.9 Seconds (9.0-12.0) 06/04/23 10:37 INR 1.1 (0.9-1.1) 06/04/23 10:37 APTT 26.1 Seconds (21.0-31.0) 06/04/23 10:37 PTT Ratio 0.9 06/04/23 10:37 Sodium 140 mmol/L (136-145) 06/05/23 06:01 Potassium 3.6 mmol/L (3.5-5.1) 06/05/23 06:01 Chloride 108 mmol/L (98-107) H 06/05/23 06:01 Carbon Dioxide 27 mmol/L (21-32) 06/05/23 06:01 Anion Gap 5 (3-11) 06/05/23 06:01 BUN 15 mg/dl (6-23) 06/05/23 06:01 Creatinine 0.56 mg/dl (0.6-1.2) L 06/05/23 06:01 Est Cr Clr Drug Dosing 71.7 ml/min 06/05/23 06:01 Est GFR ( Amer) 102.1 ml/min 06/05/23 06:01 Est GFR (Non-Af Amer) 88.1 ml/min 06/05/23 06:01 BUN/Creatinine Ratio 26.8 (10-20) H 06/05/23 06:01 Glucose 88 mg/dl (70-99(Fasting)) 06/05/23 06:01 POC Glucose 224 mg/dl (70-99) H 06/05/23 08:56 Estimat Average Glucose 111 mg/dl 06/05/23 06:01 Hemoglobin A1c 5.5 % (4.5-5.6) 06/05/23 06:01 Calcium 8.4 mg/dl (8.6-10.3) L 06/05/23 06:01 Magnesium 1.7 mg/dl (1.7-2.4) 06/04/23 10:37 Total Bilirubin 0.5 mg/dl (0.2-1.0) 06/04/23 10:37 AST 16 U/L (13-39) 06/04/23 10:37 ALT 10 U/L (7-52) 06/04/23 10:37 Alkaline Phosphatase 45 U/L (34-104) 06/04/23 10:37 Troponin I High Sens 3.6 pg/ml (0-14) 06/04/23 10:37 Total Protein 5.4 gm/dl (6.0-8.3) L 06/04/23 10:37 Albumin 3.1 gm/dl (3.4-5.0) L 06/04/23 10:37 Globulin 2.3 gm/dl (2.5-4.0) L 06/04/23 10:37 Albumin/Globulin Ratio 1.3 (0.9-2) 06/04/23 10:37 Triglycerides 80 mg/dl (0-150) 06/05/23 06:01 Cholesterol 182 mg/dl (0-200) 06/05/23 06:01 LDL Cholesterol, Calc 111 mg/dl 06/05/23 06:01 VLDL Cholesterol, Calc 16 mg/dl (0-30) 06/05/23 06:01 HDL Cholesterol 55 mg/dl 06/05/23 06:01 Cholesterol/HDL Ratio 3.3 (0-5) 06/05/23 06:01 Urine Color Yellow 06/04/23 14:30 Urine Appearance Clear (Clear) 06/04/23 14:30 Urine pH 6.0 (4.5-7.5) 06/04/23 14:30 Ur Specific [place] > 1.045 (1.000-1.030) H 06/04/23 14:30 Urine Protein Negative (Negative) 06/04/23 14:30 Urine Glucose (UA) Negative (Negative) 06/04/23 14:30 Urine Ketones 1+ (Negative) H 06/04/23 14:30 Urine Blood Negative (Negative) 06/04/23 14:30 Urine Nitrite Negative (Negative) 06/04/23 14:30 Urine Bilirubin Negative (Negative) 06/04/23 14:30 Urine Urobilinogen Negative (Negative) 06/04/23 14:30 Ur Leukocyte Esterase Negative (Negative) 06/04/23 14:30 Blood Type O Positive 06/04/23 10:37 Antibody Screen NEGATIVE 06/04/23 10:37 Impressions Head CTA 06/04/23 10:20 HEAD & NECK CTA HISTORY: neuro deficit, acute stroke suspected TECHNIQUE: Multiaxial CT images of the head were performed following the intravenous administration of contrast to evaluate the major cerebral vessels. Multiaxial CT images of the neck were also performed following the intravenous administration of contrast to evaluate the major cervical vessels. 3D/MIP images were also obtained. Sagittal and coronal reformats were reviewed. A dose lowering technique was utilized adhering to the principles of ALARA. COMPARISON: Head CT 06/04/2023. FINDINGS: There is a hypoplastic right vertebral artery which terminates into the posterior inferior cerebellar artery. There is a focal area of severe stenosis at the junction of the distal right vertebral artery/posterior inferior cerebellar artery. This seen on image 78. Otherwise, the remaining right posterior inferior cerebellar artery is patent. The distal left vertebral artery and basilar artery are widely patent. There is a hypoplastic right P1 segment. Multifocal areas of high-grade stenosis as well as a focal area of short segment occlusion within the proximal to mid right SOIL FERTILITY SPECIALIST. This is best seen image 128. The distal right SOIL FERTILITY SPECIALIST branches are patent. Mild calcified plaque within the bilateral carotid siphons. The visualized intracranial internal carotid arteries appear patent. Mild focal stenosis within the proximal left SOIL FERTILITY SPECIALIST. The bilateral MCAs and right MIREYA showed no significant stenosis, occlusion, or aneurysm. Focal vascular cut off within the mid left MIREYA best seen on image 107. There is faint visualization of the distal left MIREYA branches. The major dural venous sinuses are patent. No cerebral aneurysms identified. The aortic arch and proximal great vessels are widely patent. There is no significant stenosis, occlusion, or dissection identified within the bilateral common carotid, internal carotid, or vertebral arteries. No pneumothorax. Emphysema is noted at the lung apices. Cervical spinal fusion hardware is noted. A left mastoid effusion. The right vertebral artery is hypoplastic. There is mild to moderate calcified plaque within the bilateral carotid bifurcations without significant stenosis. IMPRESSION: 1. Focal area of short segment occlusion within the proximal to mid right SOIL FERTILITY SPECIALIST and a focal area of occlusion within the mid left MIREYA. These are age indeterminate but may be chronic. 2. Severe focal stenosis within the junction of the distal right vertebral artery/posterior inferior cerebellar artery. 3. No significant stenosis, occlusion, or dissection identified within the carotid or vertebral arteries. 4. Additional findings as described above. ACT 112: Negative or not required by law. Electronically signed by: Desmond Baez M.D. 06/04/2023 11:10 AM Neck CTA 06/04/23 10:20 HEAD & NECK CTA HISTORY: neuro deficit, acute stroke suspected TECHNIQUE: Multiaxial CT images of the head were performed following the intravenous administration of contrast to evaluate the major cerebral vessels. Multiaxial CT images of the neck were also performed following the intravenous administration of contrast to evaluate the major cervical vessels. 3D/MIP images were also obtained. Sagittal and coronal reformats were reviewed. A dose lowering technique was utilized adhering to the principles of ALARA. COMPARISON: Head CT 06/04/2023. FINDINGS: There is a hypoplastic right vertebral artery which terminates into the posterior inferior cerebellar artery. There is a focal area of severe stenosis at the junction of the distal right vertebral artery/posterior inferior cerebellar artery. This seen on image 78. Otherwise, the remaining right posterior inferior cerebellar artery is patent. The distal left vertebral artery and basilar artery are widely patent. There is a hypoplastic right P1 segment. Multifocal areas of high-grade stenosis as well as a focal area of short segment occlusion within the proximal to mid right SOIL FERTILITY SPECIALIST. This is best seen image 128. The distal right SOIL FERTILITY SPECIALIST branches are patent. Mild calcified plaque within the bilateral carotid siphons. The visualized intracranial internal carotid arteries appear patent. Mild focal stenosis within the proximal left SOIL FERTILITY SPECIALIST. The bilateral MCAs and right MIREYA showed no significant stenosis, occlusion, or aneurysm. Focal vascular cut off within the mid left MIREYA best seen on image 107. There is faint visualization of the distal left MIREYA branches. The major dural venous sinuses are patent. No cerebral aneurysms identified. The aortic arch and proximal great vessels are widely patent. There is no significant stenosis, occlusion, or dissection identified within the bilateral common carotid, internal carotid, or vertebral arteries. No pneumothorax. Emphysema is noted at the lung apices. Cervical spinal fusion hardware is noted. A left mastoid effusion. The right vertebral artery is hypoplastic. There is mild to moderate calcified plaque within the bilateral carotid bifurcations without significant stenosis. IMPRESSION: 1. Focal area of short segment occlusion within the proximal to mid right SOIL FERTILITY SPECIALIST and a focal area of occlusion within the mid left MIREYA. These are age indeterminate but may be chronic. 2. Severe focal stenosis within the junction of the distal right vertebral artery/posterior inferior cerebellar artery. 3. No significant stenosis, occlusion, or dissection identified within the carotid or vertebral arteries. 4. Additional findings as described above. ACT 112: Negative or not required by law. Electronically signed by: Desmond Baez M.D. 06/04/2023 11:10 AM Brain MRI 06/04/23 12:01 Brain MRI WITHOUT CONTRAST HISTORY: Right hand weakness. TECHNIQUE: Multiplanar multisequence MRI of the brain was performed without the use of contrast. COMPARISON STUDY: Head CT 06/04/2023. FINDINGS: Multifocal areas of restricted diffusion within the left anterior cerebral artery territory consistent with an acute infarct. There is no mass, hematoma, midline shift. Prior bilateral lens replacement again noted. The paranasal sinuses and right mastoid air cells are clear. A left mastoid effusion is noted. The major vascular flow-voids at the skull base are well-maintained. Old lacunar infarcts seen within the left cerebellar hemisphere and right basal ganglia. Extensive periventricular white matter T2 hyperintensity is nonspecific but favors advanced microvascular ischemic change given the patient's age. Mild to moderate atrophic changes are seen within the brain. IMPRESSION: Multifocal areas of restricted diffusion within the left anterior cerebral artery territory consistent with an acute infarct . ACT 112: Negative or not required by law. Electronically signed by: Desmond Baez M.D. 06/04/2023 1:[address] 06/05/23 08:57 CT head/brain wo con CLINICAL HISTORY: stroke alert Technique: Contiguous axial CT images of the head were acquired from the base of the skull to the vertex without intravenous contrast administration. Images were viewed in brain, subdural and bone windows. Automated dose lowering techniques and/or adjustment according to patient size were utilized for this exam. Comparison: Comparison is made to MRI brain 06/04/2023 Findings: Areas of decreased attenuation are present in the periventricular and subcortical white matter bilaterally consistent with small vessel ischemic disease. Generalized cerebral atrophy with commensurate enlargement of the v entricles, sulci, and cisterns is also present. There is no acute intracranial hemorrhage or evidence of acute territorial infarction. No shift of the midline structures, mass effect, or extra-axial abnormalities are shown. Atherosclerotic calcifications are present in the intracranial segments of the internal carotid arteries. Imaged portions of the paranasal sinuses and mastoid air cells are clear. The orbits appear normal. There are no acute fractures of the calvaria or scalp swelling. Impression: No acute intracranial hemorrhage, no evidence of acute territorial infarction or other acute intracranial disease process. ACT 112: Negative or not required by law. Electronically signed by: Alexandru Fitzgerald M.D. 06/05/2023 9:37 AM Venous Doppler Study 06/05/23 09:36 US venous doppler LE BI CLINICAL HISTORY: rule out DVT TECHNIQUE: Bilateral lower extremity real-time compression venous ultrasound with Color Doppler imaging. Utilizing real-time ultrasonic imaging multiple real time high-resolution ultrasonic images with compression and noncompression maneuvers of the deep venous system in addition to color doppler imaging were performed from the common femoral vein through the proximal calf veins. COMPARISON: None available at the time of this dictation. FINDINGS/IMPRESSION: Currently there is normal compressibility of the deep venous system from the common femoral vein through the proximal calf veins. No superficial venous thrombosis is identified. ACT 112: Negative or not required by law. Electronically signed by: Alexandru Fitzgerald M.D. 06/05/2023 11:17 AM
[2023-06-06] MEDS: SODIUM CHLORIDE 0.9% 1000ML 1,000 ML IV SCH ×2 (03:18→15:34)
[2023-06-06] MEDS: LEVOTHYROXINE SODIUM 112 MCG TABLET PO SCH (05:59)
[2023-06-06 06:32] LABS: Basophils # (auto) 0.07 K/uL (0-0.2); Eosinophils % (auto) 2.7 %; Hematocrit (blood only) 44.6 % (37.0-47.0); Hemoglobin 15.1 g/dl (12.0-16.0); Immature Granulocytes # (auto) 0.02 K/uL (0.01-0.20); Immature Granulocytes % (auto) 0.3 %; Lymphocytes # (auto) 1.86 K/uL (1.2-3.4); Lymphocytes % (auto) 25.4 %; Mean Corpuscular Hemoglobin 29.3 pg (25.0-34.0); Mean Corpuscular Hgb Conc 33.9 g/dL (32.0-36.0); Mean Corpuscular Volume 86.6 fL (80.0-100.0); Mean Platelet Volume 10.3 fL (9.4-12.4); Monocytes # (auto) 0.65 K/uL (0.11-0.59); Monocytes % (auto) 8.9 %; Neutrophils # (auto) 4.52 K/uL (1.40-6.50); Neutrophils % (auto) 61.7 %; Platelet Count 208 K/uL (130-400); RDW Coefficient of Variation 14.1 % (11.5-14.5); RDW Standard Deviation 44.6 fL (36.4-46.3); Red Blood Count 5.15 M/uL (4.20-5.40); White Blood Count 7.32 K/ul (4.8-10.8)
[2023-06-06 06:45] LABS: BUN Creatinine Ratio 23.1 (10-20); Calcium 8.4 mg/dl (8.6-10.3); Creatinine Clr Calc Pharmacy 77.3 ml/min; Est GFR (African American) 104.6 ml/min; Est GFR (Non-African American) 90.2 ml/min; Potassium 3.6 mmol/L (3.5-5.1)
[2023-06-06] MEDS: LORATADINE 10 MG TAB PO SCH (07:45)
[2023-06-06] MEDS: FLUTICASONE/VILANTEROL 200/25MCG 14 PUFFS/INHALER INH SCH (07:45)
[2023-06-06] MEDS: CLOPIDOGREL BISULFATE 75 MG TAB PO SCH (07:45)
[2023-06-06] MEDS: ATORVASTATIN 40 MG TAB PO SCH (07:46)
[2023-06-06] MEDS: CYANOCOBALAMIN (B-12) 500 MCG TABLET PO SCH (07:46)
[2023-06-06] MEDS: ASPIRIN 81 MG ECTAB PO SCH (07:46)
[2023-06-06] MEDS: CHOLECALCIFEROL 5,000 UNITS 125 MCG TAB PO SCH (07:46)
[2023-06-06] MEDS: OXYBUTYNIN CHLORIDE XL 5 MG TABCR PO SCH (07:46)
[2023-06-06] MEDS: PREGABALIN 100 MG CAP PO SCH ×2 (07:47→19:55)
[2023-06-06] MEDS: ENOXAPARIN INJ 40 MG/0.4 ML SYR SQ SCH (13:11)
--- NOTE | 2023-06-06 15:46 | Hospitalist Progress Note ---
Date of Service June 06, 2023 Assessment & Plan (1) Acute CVA (cerebrovascular accident): Plan: Patient is a 78-year-old female was brought by her family for altered mental status. one day prior to presentation she was found sitting on the floor against the chair; she was also found to be weaker on her right side. Her brought her to the hospital. Stroke alert was called in the ED. Patient was not a candidate for tPA. MRI brain showed left MIREYA stroke. Patient was admitted to PCU for further monitoring. Acute CVA --MRI Brain:Multifocal areas of restricted diffusion within the left anterior cerebral artery territory consistent with an acute infarct . --Head/Neck CTA:Focal area of short segment occlusion within the proximal to mid right GENERAL ACCOUNTING CLERK and a focal area of occlusion within the mid left MIREYA. These are age indeterminate but may be chronic. Severe focal stenosis within the junction of the distal right vertebral artery/posterior inferior cerebellar artery. No significant stenosis, occlusion, or dissection identified within the carotid or vertebral arteries. --Venous Doppler:Currently there is normal compressibility of the deep venous system from the common femoral vein through the proximal calf veins. No superficial venous thrombosis is identified. --ECHO: EF 55 to 60%. Borderline concentric LVH. Aortic valve sclerosis mild, without significant aortic valve stenosis. Mild mitral regurgitation. Small interatrial shunt noted. Prior hospitalist discussed with neurologist due to recurrence of symptoms: Advised to monitor for any bladder retention. Suggested IV fluids to help with perfusion. --Monitor bladder scan as needed -- Continue aspirin, Plavix--dual antiplatelet therapy for 21 days and then Plavix 75 mg daily alone Continue Lipitor 40 mg daily Appreciate neurology input Needs follow-up with neurology in 4 to 6 weeks upon discharge Plan to discharge to rehab facility as able Continue PT OT, fall precautions (2) Hypothyroidism: Plan: Continue levothyroxine (3) COPD, mild: Plan: No signs of acute exacerbation Continue home inhalers DVT Px SQ Lovenox CODE STATUS Full code Disposition Acute rehab as able Admission and Anticipated Discharge Date Admission Date: June 05, 2023 Subjective Patient is seen and examined at bedside States feeling tired Also reports right-sided weakness, predominantly right leg Denies any chest pain, dyspnea, dizziness, nausea, vomiting, abdominal pain No other complaints Review of Systems Review of Systems: All systems reviewed & are unremarkable except as noted in Subjective Physical Exam Physical Exam: Physical Exam: Vitals signs as noted above General Appearance:Moderately built and nourished, no apparent distress Head: normocephalic, Atraumatic Eyes: normal inspection, EOMI Neck: supple, Trachea midline Respiratory/Chest: Normal breath sounds, CTA, No accessory muscle use Cardiovascular: S1, S2, No murmur Abdomen/GI:Soft, Non tender, Bowel sounds present Extremities/Musculoskeletal:normal inspection, no edema Neurologic/Psych:AAOX3, RLE 2/5, RUE 4/5 otherwise no focal deficits Skin: normal color, warm Results & Data Results & Data Vital Signs (Past 12 Hours) Vital Signs Temp Pulse Pulse Resp BP Pulse Ox O2 Del Method 06/06/23 15:18 70 06/06/23 11:12 36.3 C L 65 18 118/72 93 Room Air 06/06/23 08:00 81 06/06/23 07:27 36.6 C 72 18 146/89 H 92 Room Air 06/06/23 03:55 36.4 C L 63 17 168/86 H 93 Room Air Laboratory Results Short CBC 06/06/23 Range/Units 05:51 WBC 7.32 (4.8-10.8) K/ul Hgb 15.1 (12.0-16.0) g/dl Hct 44.6 (37.0-47.0) % Plt Count 208 (130-400) K/uL [facility] 06/06/23 05:51 Sodium 142 Potassium 3.6 Chloride 109 H Carbon Dioxide 27 BUN 12 Creatinine 0.52 L Glucose 99 Calcium 8.4 L
[2023-06-07] MEDS: LEVOTHYROXINE SODIUM 112 MCG TABLET PO SCH (06:02)
[2023-06-07] MEDS: ACETAMINOPHEN 325 MG TAB PO PRN (06:05)
[2023-06-07 07:41] LABS: Basophils # (auto) 0.08 K/uL (0-0.2); Basophils % (auto) 1.2 %; Eosinophils # (auto) 0.38 K/uL (0-0.50); Eosinophils % (auto) 5.7 %; Hematocrit (blood only) 45.4 % (37.0-47.0); Hemoglobin 14.8 g/dl (12.0-16.0); Immature Granulocytes # (auto) 0.02 K/uL (0.01-0.20); Immature Granulocytes % (auto) 0.3 %; Lymphocytes # (auto) 1.83 K/uL (1.2-3.4); Lymphocytes % (auto) 27.3 %; Mean Corpuscular Hemoglobin 29.1 pg (25.0-34.0); Mean Corpuscular Hgb Conc 32.6 g/dL (32.0-36.0); Mean Corpuscular Volume 89.4 fL (80.0-100.0); Mean Platelet Volume 10.4 fL (9.4-12.4); Monocytes % (auto) 8.9 %; Neutrophils % (auto) 56.6 %; Platelet Count 208 K/uL (130-400); RDW Coefficient of Variation 14.1 % (11.5-14.5); RDW Standard Deviation 45.8 fL (36.4-46.3); Red Blood Count 5.08 M/uL (4.20-5.40); White Blood Count 6.71 K/ul (4.8-10.8)
[2023-06-07] MEDS: FLUTICASONE/VILANTEROL 200/25MCG 14 PUFFS/INHALER INH SCH (07:45)
[2023-06-07] MEDS: PREGABALIN 100 MG CAP PO SCH (07:45)
[2023-06-07] MEDS: CHOLECALCIFEROL 5,000 UNITS 125 MCG TAB PO SCH (07:46)
[2023-06-07] MEDS: ASPIRIN 81 MG ECTAB PO SCH (07:46)
[2023-06-07] MEDS: ATORVASTATIN 40 MG TAB PO SCH (07:46)
[2023-06-07] MEDS: LORATADINE 10 MG TAB PO SCH (07:46)
[2023-06-07] MEDS: CLOPIDOGREL BISULFATE 75 MG TAB PO SCH (07:46)
[2023-06-07] MEDS: OXYBUTYNIN CHLORIDE XL 5 MG TABCR PO SCH (07:46)
[2023-06-07] MEDS: CYANOCOBALAMIN (B-12) 500 MCG TABLET PO SCH (07:46)
[2023-06-07 08:04] LABS: Calcium 8.2 mg/dl (8.6-10.3); Creatinine Clr Calc Pharmacy 74.2 ml/min; Est GFR (African American) 105.9 ml/min; Est GFR (Non-African American) 91.4 ml/min; Potassium 3.5 mmol/L (3.5-5.1)
--- NOTE | 2023-06-07 13:22 | Hospitalist Progress Note ---
Date of Service June 07, 2023 Assessment & Plan (1) Acute CVA (cerebrovascular accident): Plan: Patient is a 78-year-old female was brought by her family for altered mental status. one day prior to presentation she was found sitting on the floor against the chair; she was also found to be weaker on her right side. Her brought her to the hospital. Stroke alert was called in the ED. Patient was not a candidate for tPA. MRI brain showed left MIREYA stroke. Patient was admitted to PCU for further monitoring. Acute CVA --MRI Brain:Multifocal areas of restricted diffusion within the left anterior cerebral artery territory consistent with an acute infarct . --Head/Neck CTA:Focal area of short segment occlusion within the proximal to mid right [employer] and a focal area of occlusion within the mid left MIREYA. These are age indeterminate but may be chronic. Severe focal stenosis within the junction of the distal right vertebral artery/posterior inferior cerebellar artery. No significant stenosis, occlusion, or dissection identified within the carotid or vertebral arteries. --Venous Doppler:Currently there is normal compressibility of the deep venous system from the common femoral vein through the proximal calf veins. No superficial venous thrombosis is identified. --ECHO: EF 55 to 60%. Borderline concentric LVH. Aortic valve sclerosis mild, without significant aortic valve stenosis. Mild mitral regurgitation. Small interatrial shunt noted. Prior hospitalist discussed with neurologist due to recurrence of symptoms: Advised to monitor for any bladder retention. Suggested IV fluids to help with perfusion. --Monitor bladder scan as needed -- Continue aspirin, Plavix--dual antiplatelet therapy for 21 days and then Plavix 75 mg daily alone Continue Lipitor 40 mg daily Appreciate neurology input Needs follow-up with neurology in 4 to 6 weeks upon discharge Continue PT OT, fall precautions Plan to discharge to rehab facility today (2) Hypothyroidism: Plan: Continue levothyroxine (3) COPD, mild: Plan: No signs of acute exacerbation Continue home inhalers DVT Px SQ Lovenox CODE STATUS Full code Disposition Acute rehab Admission and Anticipated Discharge Date Admission Date: June 05, 2023 Subjective Patient is seen and examined at bedside States feeling well today Ambulated with PT this morning Right leg weakness much improved Discussed with patient's family at bedside Denies any chest pain, dyspnea, dizziness, nausea, vomiting, abdominal pain Plan to discharge to rehab facility today Review of Systems Review of Systems: All systems reviewed & are unremarkable except as noted in Subjective Physical Exam Physical Exam: Physical Exam: Vitals signs as noted above General Appearance:Moderately built and nourished, no apparent distress Head: normocephalic, Atraumatic Eyes: normal inspection, EOMI Neck: supple, Trachea midline Respiratory/Chest: Normal breath sounds, CTA, No accessory muscle use Cardiovascular: S1, S2, No murmur Abdomen/GI:Soft, Non tender, Bowel sounds present Extremities/Musculoskeletal:normal inspection, no edema Neurologic/Psych:AAOX3, RLE 4/5, RUE 4/5 otherwise no focal deficits Skin: normal color, warm Results & Data Results & Data Vital Signs (Past 12 Hours) Vital Signs Temp Pulse Pulse Resp BP Pulse Ox O2 Del Method 06/07/23 12:13 36.7 C 73 18 112/77 93 Room Air 06/07/23 08:00 65 06/07/23 08:10 36.4 C L 56 L 19 150/61 H 92 Room Air 06/07/23 03:00 36.4 C L 64 18 158/78 H 91 Room Air Laboratory Results Short CBC 06/07/23 Range/Units 06:54 WBC 6.71 (4.8-10.8) K/ul Hgb 14.8 (12.0-16.0) g/dl Hct 45.4 (37.0-47.0) % Plt Count 208 (130-400) K/uL BMP 06/07/23 06:54 Sodium 142 Potassium 3.5 Chloride 108 H Carbon Dioxide 29 BUN 12 Creatinine 0.50 L Glucose 91 Calcium 8.2 L
--- NOTE | 2023-06-07 13:35 | Discharge Summary ---
Date of Service June 07, 2023 Admission HPI Per Admitting Provider 78-year-old female with PMH hypothyroidism, HLD, COPD, GERD, cervical myelopathy, and other problems listed below who presents to the ED for evaluation of altered mental status. History initially obtained from patient however additional information obtained from patient's once he arrived. Outpatient PCP records also reviewed. states that yesterday afternoon, patient slid out of her chair onto the floor. He found her sitting on the floor against the chair. He helped her up and placed her back into the chair. Patient seemed to be generally weak. states that patient seemed to "slow down" throughout the day. She is normally very talkative however states she barely said anything last evening. At one point she would not respond to him at all however her eyes were open and she was following simple commands. When it came time for her to go to bed, she had much trouble standing and required a walker to stand which is not usual. states she slept until about 830 which is usual for the patient. Patient was able to walk to the table and had breakfast. states that she again had an episode of unresponsiveness in her right arm slumped down. EMS was subsequently called and patient was brought to the ED for further evaluation. Stroke alert was called and patient was not felt to be a candidate for tPA. In the ED, head CT negative for acute findings. Head/neck CTA show focal area of short segment occlusion within the proximal to mid right [employer] PROGRAMMER ANALYST and a focal area of occlusion within the mid left MIREYA. These are age indeterminate but may be chronic. Severe focal stenosis within the junction of the distal right vertebral artery/posterior inferior cerebellar artery. Patient was given full dose aspirin. Admission Exam Per Admitting Provider General:NAD, well nourished, non-toxic appearing Head:NC AT Eyes: anicteric sclera, no conjunctival injection, unable to participate in OM testing (could not follow directions) Nose:nares patent Mouth:MMM Neck:supple, trachea midline CV:RRR S1 S2 Pulm:CTA b/l Abd/GI:+ BS, soft, NT, ND, no guarding :no العلي Ext:no pretibial edema MSK:normal bulk and tone Neuro:diffuse RUE and RLE weakness, loss of sensation in the RUE, RLE. RUE turned inward. Unable to test for dysmetria with the RUE d/t pt unable to move the RLE. + dysmetria in finger to nose testing on the right Psych:pleasant mood and affect Skin:visible skin is warm, dry, and without rash. Pt not fully undressed for exam. Principal Diagnosis Acute cerebrovascular accident Discharge Data Allergies Allergy/AdvReac Type Severity Reaction Status Date / Time No Known Allergies Allergy Unknown Verified 03/31/20 15:38 Consultations 06/04/23 11:36 ED Decision to Admit Stat 06/04/23 13:52 Consult Neurology Routine Procedures Performed Laboratory Results WBC 6.71 K/ul (4.8-10.8) 06/07/23 06:54 RBC 5.08 M/uL (4.20-5.40) 06/07/23 06:54 Hgb 14.8 g/dl (12.0-16.0) 06/07/23 06:54 Hct 45.4 % (37.0-47.0) 06/07/23 06:54 MCV 89.4 fL (80.0-100.0) 06/07/23 06:54 MCH 29.1 pg (25.0-34.0) 06/07/23 06:54 MCHC 32.6 g/dL (32.0-36.0) 06/07/23 06:54 RDW Std Deviation 45.8 fL (36.4-46.3) 06/07/23 06:54 RDW Coeff of Jose A 14.1 % (11.5-14.5) 06/07/23 06:54 Plt Count 208 K/uL (130-400) 06/07/23 06:54 MPV 10.4 fL (9.4-12.4) 06/07/23 06:54 Immature Gran % (Auto) 0.3 % 06/07/23 06:54 Neut % (Auto) 56.6 % 06/07/23 06:54 Lymph % (Auto) 27.3 % 06/07/23 06:54 [place] % (Auto) 8.9 % 06/07/23 06:54 Eos % (Auto) 5.7 % 06/07/23 06:54 Baso % (Auto) 1.2 % 06/07/23 06:54 Neut # (Auto) 3.80 K/uL (1.40-6.50) 06/07/23 06:54 Lymph # (Auto) 1.83 K/uL (1.2-3.4) 06/07/23 06:54 [place] # (Auto) 0.60 K/uL (0.11-0.59) H 06/07/23 06:54 Eos # (Auto) 0.38 K/uL (0-0.50) 06/07/23 06:54 Baso # (Auto) 0.08 K/uL (0-0.2) 06/07/23 06:54 Immature Gran # (Auto) 0.02 K/uL (0.01-0.20) 06/07/23 06:54 PT 11.9 Seconds (9.0-12.0) 06/04/23 10:37 INR 1.1 (0.9-1.1) 06/04/23 10:37 APTT 26.1 Seconds (21.0-31.0) 06/04/23 10:37 PTT Ratio 0.9 06/04/23 10:37 Sodium 142 mmol/L (136-145) 06/07/23 06:54 Potassium 3.5 mmol/L (3.5-5.1) 06/07/23 06:54 Chloride 108 mmol/L (98-107) H 06/07/23 06:54 Carbon Dioxide 29 mmol/L (21-32) 06/07/23 06:54 Anion Gap 5 (3-11) 06/07/23 06:54 BUN 12 mg/dl (6-23) 06/07/23 06:54 Creatinine 0.50 mg/dl (0.6-1.2) L 06/07/23 06:54 Est Cr Clr Drug Dosing 74.2 ml/min 06/07/23 06:54 Est GFR ( Amer) 105.9 ml/min 06/07/23 06:54 Est GFR (Non-Af Amer) 91.4 ml/min 06/07/23 06:54 BUN/Creatinine Ratio 24.0 (10-20) H 06/07/23 06:54 Glucose 91 mg/dl (70-99(Fasting)) 06/07/23 06:54 POC Glucose 224 mg/dl (70-99) H 06/05/23 08:56 Estimat Average Glucose 111 mg/dl 06/05/23 06:01 Hemoglobin A1c 5.5 % (4.5-5.6) 06/05/23 06:01 Calcium 8.2 mg/dl (8.6-10.3) L 06/07/23 06:54 Magnesium 1.7 mg/dl (1.7-2.4) 06/04/23 10:37 Total Bilirubin 0.5 mg/dl (0.2-1.0) 06/04/23 10:37 AST 16 U/L (13-39) 06/04/23 10:37 ALT 10 U/L (7-52) 06/04/23 10:37 Alkaline Phosphatase 45 U/L (34-104) 06/04/23 10:37 Troponin I High Sens 3.6 pg/ml (0-14) 06/04/23 10:37 Total Protein 5.4 gm/dl (6.0-8.3) L 06/04/23 10:37 Albumin 3.1 gm/dl (3.4-5.0) L 06/04/23 10:37 Globulin 2.3 gm/dl (2.5-4.0) L 06/04/23 10:37 Albumin/Globulin Ratio 1.3 (0.9-2) 06/04/23 10:37 Triglycerides 80 mg/dl (0-150) 06/05/23 06:01 Cholesterol 182 mg/dl (0-200) 06/05/23 06:01 LDL Cholesterol, Calc 111 mg/dl 06/05/23 06:01 VLDL Cholesterol, Calc 16 mg/dl (0-30) 06/05/23 06:01 HDL Cholesterol 55 mg/dl 06/05/23 06:01 Cholesterol/HDL Ratio 3.3 (0-5) 06/05/23 06:01 Urine Color Yellow 06/04/23 14:30 Urine Appearance Clear (Clear) 06/04/23 14:30 Urine pH 6.0 (4.5-7.5) 06/04/23 14:30 Ur Specific [place] > 1.045 (1.000-1.030) H 06/04/23 14:30 Urine Protein Negative (Negative) 06/04/23 14:30 Urine Glucose (UA) Negative (Negative) 06/04/23 14:30 Urine Ketones 1+ (Negative) H 06/04/23 14:30 Urine Blood Negative (Negative) 06/04/23 14:30 Urine Nitrite Negative (Negative) 06/04/23 14:30 Urine Bilirubin Negative (Negative) 06/04/23 14:30 Urine Urobilinogen Negative (Negative) 06/04/23 14:30 Ur Leukocyte Esterase Negative (Negative) 06/04/23 14:30 Blood Type O Positive 06/04/23 10:37 Antibody Screen NEGATIVE 06/04/23 10:37 Impressions Head CTA 06/04/23 10:20 HEAD & NECK CTA HISTORY: neuro deficit, acute stroke suspected TECHNIQUE: Multiaxial CT images of the head were performed following the intravenous administration of contrast to evaluate the major cerebral vessels. Multiaxial CT images of the neck were also performed following the intravenous administration of contrast to evaluate the major cervical vessels. 3D/MIP images were also obtained. Sagittal and coronal reformats were reviewed. A dose lowering technique was utilized adhering to the principles of ALARA. COMPARISON: Head CT 06/04/2023. FINDINGS: There is a hypoplastic right vertebral artery which terminates into the posterior inferior cerebellar artery. There is a focal area of severe stenosis at the junction of the distal right vertebral artery/posterior inferior cerebellar artery. This seen on image 78. Otherwise, the remaining right posterior inferior cerebellar artery is patent. The distal left vertebral artery and basilar artery are widely patent. There is a hypoplastic right P1 segment. Multifocal areas of high-grade stenosis as well as a focal area of short segment occlusion within the proximal to mid right [employer] PROGRAMMER ANALYST. This is best seen image 128. The distal right [employer] PROGRAMMER ANALYST branches are patent. Mild calcified plaque within the bilateral carotid siphons. The visualized intracranial internal carotid arteries appear patent. Mild focal stenosis within the proximal left [employer] PROGRAMMER ANALYST. The bilateral MCAs and right MIREYA showed no significant stenosis, occlusion, or aneurysm. Focal vascular cut off within the mid left MIREYA best seen on image 107. There is faint visualization of the distal left MIREYA branches. The major dural venous sinuses are patent. No cerebral aneurysms identified. The aortic arch and proximal great vessels are widely patent. There is no significant stenosis, occlusion, or dissection identified within the bilateral common carotid, internal carotid, or vertebral arteries. No pneumothorax. Emphysema is noted at the lung apices. Cervical spinal fusion hardware is noted. A left mastoid effusion. The right vertebral artery is hypoplastic. There is mild to moderate calcified plaque within the bilateral carotid bifurcations without significant stenosis. IMPRESSION: 1. Focal area of short segment occlusion within the proximal to mid right [employer] PROGRAMMER ANALYST and a focal area of occlusion within the mid left MIREYA. These are age indeterminate but may be chronic. 2. Severe focal stenosis within the junction of the distal right vertebral artery/posterior inferior cerebellar artery. 3. No significant stenosis, occlusion, or dissection identified within the carotid or vertebral arteries. 4. Additional findings as described above. ACT 112: Negative or not required by law. Electronically signed by: Desmond Baez M.D. 06/04/2023 11:10 AM Neck CTA 06/04/23 10:20 HEAD & NECK CTA HISTORY: neuro deficit, acute stroke suspected TECHNIQUE: Multiaxial CT images of the head were performed following the intravenous administration of contrast to evaluate the major cerebral vessels. Multiaxial CT images of the neck were also performed following the intravenous administration of contrast to evaluate the major cervical vessels. 3D/MIP images were also obtained. Sagittal and coronal reformats were reviewed. A dose lowering technique was utilized adhering to the principles of ALARA. COMPARISON: Head CT 06/04/2023. FINDINGS: There is a hypoplastic right vertebral artery which terminates into the posterior inferior cerebellar artery. There is a focal area of severe stenosis at the junction of the distal right vertebral artery/posterior inferior cerebellar artery. This seen on image 78. Otherwise, the remaining right posterior inferior cerebellar artery is patent. The distal left vertebral artery and basilar artery are widely patent. There is a hypoplastic right P1 segment. Multifocal areas of high-grade stenosis as well as a focal area of short segment occlusion within the proximal to mid right [employer]ENT[employer] PROGRAMMER ANALYST. This is best seen image 128. The distal right SCIENT[employer] PROGRAMMER ANALYST branches are patent. Mild calcified plaque within the bilateral carotid siphons. The visualized intracranial internal carotid arteries appear p atent. Mild focal stenosis within the proximal left [employer]ENT[employer] PROGRAMMER ANALYST. The bilateral MCAs and right MIREYA showed no significant stenosis, occlusion, or aneurysm. Focal vascular cut off within the mid left MIREYA best seen on image 107. There is faint visualization of the distal left MIREYA branches. The major dural venous sinuses are patent. No cerebral aneurysms identified. The aortic arch and proximal great vessels are widely patent. There is no significant stenosis, occlusion, or dissection identified within the bilateral common carotid, internal carotid, or vertebral arteries. No pneumothorax. Emphysema is noted at the lung apices. Cervical spinal fusion hardware is noted. A left mastoid effusion. The right vertebral artery is hypoplastic. There is mild to moderate calcified plaque within the bilateral carotid bifurcations without significant stenosis. IMPRESSION: 1. Focal area of short segment occlusion within the proximal to mid right [employer]ENT[employer] PROGRAMMER ANALYST and a focal area of occlusion within the mid left MIREYA. These are age indeterminate but may be chronic. 2. Severe focal stenosis within the junction of the distal right vertebral artery/posterior inferior cerebellar artery. 3. No significant stenosis, occlusion, or dissection identified within the carotid or vertebral arteries. 4. Additional findings as described above. ACT 112: Negative or not required by law. Electronically signed by: Desmond Baez M.D. 06/04/2023 11:10 AM Brain MRI 06/04/23 12:01 Brain MRI WITHOUT CONTRAST HISTORY: Right hand weakness. TECHNIQUE: Multiplanar multisequence MRI of the brain was performed without the use of contrast. COMPARISON STUDY: Head CT 06/04/2023. FINDINGS: Multifocal areas of restricted diffusion within the left anterior cerebral artery territory consistent with an acute infarct. There is no mass, hematoma, midline shift. Prior bilateral lens replacement again noted. The paranasal sinuses and right mastoid air cells are clear. A left mastoid effusion is noted. The major vascular flow-voids at the skull base are well-maintained. Old lacunar infarcts seen within the left cerebellar hemisphere and right basal ganglia. Extensive periventricular white matter T2 hyperintensity is nonspecific but favors advanced microvascular ischemic change given the patient's age. Mild to moderate atrophic changes are seen within the brain. IMPRESSION: Multifocal areas of restricted diffusion within the left anterior cerebral artery territory consistent with an acute infarct . ACT 112: Negative or not required by law. Electronically signed by: Desmond Baez M.D. 06/04/2023 1:[address] 06/05/23 08:57 CT head/brain wo con CLINICAL HISTORY: stroke alert Technique: Contiguous axial CT images of the head were acquired from the base of the skull to the vertex without intravenous contrast administration. Images were viewed in brain, subdural and bone windows. Automated dose lowering techniques and/or adjustment according to patient size were utilized for this exam. Comparison: Comparison is made to MRI brain 06/04/2023 Findings: Areas of decreased attenuation are present in the periventricular and subcortical white matter bilaterally consistent with small vessel ischemic disease. Generalized cerebral atrophy with commensurate enlargement of the ventricles, sulci, and cisterns is also present. There is no acute intracranial hemorrhage or evidence of acute territorial infarction. No shift of the midline structures, mass effect, or extra-axial abnormalities are shown. Atherosclerot ic calcifications are present in the intracranial segments of the internal carotid arteries. Imaged portions of the paranasal sinuses and mastoid air cells are clear. The orbits appear normal. There are no acute fractures of the calvaria or scalp swelling. Impression: No acute intracranial hemorrhage, no evidence of acute territorial infarction or other acute intracranial disease process. ACT 112: Negative or not required by law. Electronically signed by: Alexandru Fitzgerald M.D. 06/05/2023 9:37 AM Venous Doppler Study 06/05/23 09:36 US venous doppler LE BI CLINICAL HISTORY: rule out DVT TECHNIQUE: Bilateral lower extremity real-time compression venous ultrasound with Color Doppler imaging. Utilizing real-time ultrasonic imaging multiple real time high-resolution ultrasonic images with compression and noncompression maneuvers of the deep venous system in addition to color doppler imaging were performed from the common femoral vein through the proximal calf veins. COMPARISON: None available at the time of this dictation. FINDINGS/IMPRESSION: Currently there is normal compressibility of the deep venous system from the common femoral vein through the proximal calf veins. No superficial venous thrombosis is identified. ACT 112: Negative or not required by law. Electronically signed by: Alexandru Fitzgerald M.D. 06/05/2023 11:17 AM Ordered Studies 06/04/23 10:20 CT angio head w con Stat CT angio neck with con Stat CT head/brain wo con Stat 06/04/23 12:01 MR brain wo con Routine 06/05/23 08:57 CT head/brain wo con Stat 06/05/23 09:36 US venous duplex leg [US venous doppler LE BI] Routine Hospital Course (1) Acute CVA (cerebrovascular accident): Patient is a 78-year-old female was brought by her family for altered mental status. one day prior to presentation she was found sitting on the floor against the chair; she was also found to be weaker on her right side. Her brought her to the hospital. Stroke alert was called in the ED. Patient was not a candidate for tPA. MRI brain showed left MIREYA stroke. Patient was admitted to PCU for further monitoring. Acute CVA --MRI Brain:Multifocal areas of restricted diffusion within the left anterior cerebral artery territory consistent with an acute infarct . --Head/Neck CTA:Focal area of short segment occlusion within the proximal to mid right SCIENT[employer] PROGRAMMER ANALYST and a focal area of occlusion within the mid left MIREYA. These are age indeterminate but may be chronic. Severe focal stenosis within the junction of the distal right vertebral artery/posterior inferior cerebellar artery. No significant stenosis, occlusion, or dissection identified within the carotid or vertebral arteries. --Venous Doppler:Currently there is normal compressibility of the deep venous system from the common femoral vein through the proximal calf veins. No superficial venous thrombosis is identified. --ECHO: EF 55 to 60%. Borderline concentric LVH. Aortic valve sclerosis mild, without significant aortic valve stenosis. Mild mitral regurgitation. Small interatrial shunt noted. Prior hospitalist discussed with neurologist due to recurrence of symptoms: Advised to monitor for any bladder retention. Suggested IV fluids to help with perfusion. --Monitor bladder scan as needed -- Continue aspirin, Plavix--dual antiplatelet therapy for 21 days and then Plavix 75 mg daily alone Continue Lipitor 40 mg daily Appreciate neurology input Needs follow-up with neurology in 4 to 6 weeks upon discharge Continue PT OT, fall precautions Plan to discharge to rehab facility today (2) Hypothyroidism: Continue levothyroxine (3) COPD, mild: No signs of acute exacerbation Continue home inhalers DVT Px SQ Lovenox CODE STATUS Full code Disposition Acute rehab Total Time Total Time Spent Total Time Spent (In Minutes): 56 minutes Discharge Plan Discharge Items Patient Disposition: Transfer Inpatient Rehab Fac Reason For Visit: STROKE Discharge Diagnosis: Acute cerebrovascular accident Activity: Per Instructions section Exercise/Sports: Gradually increase as tolerated Non-emergency contact: Primary Care Provider and Neurologist Call non-emergency contact if: you have any medication questions, your symptoms worsen, your pain is concerning for you and you have a fever Follow-up/Referrals: Santo Eagle MD [Primary Care Provider] - Diet: Heart Healthy Addtl Attending Provider Instructions: Follow-up with your primary care physician in 1 week upon discharge from rehab facility Follow-up with your neurologist in 4-6 weeks --- Continue dual antiplatelet therapy with aspirin 81 mg daily and Plavix 75 mg daily for 18 more days to complete 21-day course, then take Plavix 75 mg daily alone as recommended by your neurologist -- Get laboratory monitor arranged to rule out heart arrhythmias as recommended by your neurologist. Seek immediate medical attention if your symptoms reoccur or worsen Please take all medications as instructed on discharge list below. Please call if you have any questions or problems. You can reach a [facility] hospitalist on duty at [facility] 24 hours a day by calling [phone] Risk Factors for Stroke: You can reduce your chances of stroke by working with your medical provider to adopt a healthy lifestyle. Some specific ways to lower your chance of stroke are: * If you are a smoker, now is the time to stop smoking cigarettes * If you are diabetic, improve the control of your blood sugars * Avoid excessive amounts of alcohol * Control high blood pressure * Lose weight if you are overweight * Be sure to lead an active lifestyle * Eat a healthy diet low in salt, cholesterol and fat You should know about other risk factors for stroke that you are unable to control. These include: * Age 55 years or older * Male gender * Certain racial groups: , or / * Family History of Stroke, Mini stroke or Heart Attack * Sickle Cell Disease Follow Up: It is important for you to keep your follow up appointments with your medical provider. Who to Call and When: Medical Emergencies: Call 911 immediately if you experience any of the following warning signs and symptoms of Stroke: * Sudden numbness or weakness of the face, arm or leg, especially on one side of the body * Sudden confusion, trouble speaking or understanding * Sudden trouble seeing in one or both eyes * Sudden trouble walking, dizziness, loss of balance or coordination * Sudden severe headache with no cause Do not delay calling 911 if you experience any warning signs or symptoms of a stroke. Delay in seeking medical attention may affect what treatments can be given to you. . Pending Studies at Discharge: No Stand-Alone Forms: [facility], Medications to Prevent Stroke Skilled Items Patient informed of condition?: Yes DNR: No Discharge Level of Care: Acute rehab Communicable Disease: No Discharge Prognosis: Stable Lines: None Urinary Catheter: No Medications and DC Order Prescriptions: New atorvastatin 40 mg Tablet 40 mg PO QAM Qty: 30 1RF clopidogrel 75 mg Tablet 75 mg PO QAM Qty: 30 1RF Continued ipratropium-albuterol 0.5 mg-3 mg(2.5 mg base)/3 mL Solution For Nebulization 3 ml INHALATION Q4 PRN (Reason: Shortness Of Breath Or Wheezing) PreserVision AREDS [id number] Tablet 1 tab PO DAILY lorazepam [Ativan] 1 mg Tablet 1 mg PO HS PRN (Reason: Insomnia) albuterol sulfate [Ventolin HFA] 90 mcg/actuation Hfa Aerosol Inhaler 2 puff INHALATION QID PRN (Reason: Shortness Of Breath Or Wheezing) fluticasone propionate 50 mcg/actuation spray,suspension 2 spray INTRANASAL HS pregabalin 100 mg capsule 100 mg PO BID Dulera 200-5 mcg/actuation HFA aerosol inhaler 2 puff INHALATION AMPM cyanocobalamin (vitamin B-12) 1,000 mcg Tablet 1,000 mcg PO DAILY aspirin 81 mg Tablet,Delayed Release (Dr/Ec) 81 mg PO DAILY loratadine 10 mg Tablet 10 mg PO DAILY levothyroxine 112 mcg tablet 112 mcg PO DAILY solifenacin 5 mg tablet 5 mg PO DAILY zoledronic hjjx-[id number]-[id number] 5 mg/100 mL Piggyback 1 ea IV UD cholecalciferol (vitamin D3) [Vitamin D3] 125 mcg (5,000 unit) Tablet 125 mcg PO DAILY Discharge Orders: Discharge Order (Routine); Ordered 06/07/23 Ordered By: Elder Montero Admission Data Admit Date/Time: 06/05/23 11:23 Attending Provider: Elder Montero Admit Provider: Anju Maldonado Primary Care Provider: Santo Eagle Other Providers: Anju Maldonado ; Rosalino Monge ; [facility]
[2023-06-07] MEDS: ENOXAPARIN INJ 40 MG/0.4 ML SYR SQ SCH (14:11)
== END 2023-06-07 15:55 | DRG 65 ==
LOC: ED 10:27 → 2E 10:27 → SUATTDRO 11:43 → 2E 13:53 → SUATTDRO 06-05 11:23